=== PATIENT | female | born 1965 | race Caucasian/White ===

== ENCOUNTER 2018-05-11 05:51 | Day surgery (SDC) | payer OTHER ==
--- OUTSIDE RECORDS SUMMARY | 2018-05-11 05:57 | XMS REPORT | Summary of Care ---
:1965 Author Organization [facility] Spine [facility] Address [address] [place] [address] [address] [place] [address]- Encounter HQ Encntr_alilinda(FIN) [id number] Date(s): 11/10/17 - 11/11/17 [facility] Spine [address] [place], [place] [address] [phone] Vital Signs No data available for this section Problem List Condition Effective Dates Status Health Status Informant Aortic regurgitation(Confirmed) Active Asthma(Confirmed) Active CRPS (complex regional pain syndrome Active type I)(Confirmed) Tremor, essential(Confirmed) Active Heart murmur(Confirmed) Active Hyperlipidemia(Confirmed) Active Hypertension(Confirmed) Active Laryngopharyngeal reflux(Confirmed) Active Morbid obesity(Confirmed) Active PVC (premature ventricular Active contraction)(Confirmed) Allergies, Adverse Reactions, Alerts Substance Reaction Severity Status NKDA Active Medications No data available for this section Results No data available for this section Immunizations No data available for this section Procedures Procedure Date Related Diagnosis Body Site Status Appendectomy Completed section Completed section Completed section Completed Repair of ankle1 Completed Repair of knee joint2 Completed Repair of shoulder3 Completed SCS - Spinal cord stimulation4 Completed 1ankle surgery [id number] surgery [id number] shoulder surgeries [id number] cord stimulator implant 2009,2011,2017 Social History Social History Type Response Substance Abuse Use: None. Alcohol Past Smoking Status Never smoker; Ready to change: No; Concerns about tobacco use in household: No; Exposure to Tobacco Smoke None; Cigarette Smoking Last 365 Days No; Reg Smoking Cessation Counseling No entered on: 12/02/17 Assessment and Plan No data available for this section
--- OUTSIDE RECORDS SUMMARY | 2018-05-11 05:57 | XMS REPORT | Summary of Care ---
:1965 Author Organization [facility] Spine [facility] Address [address] [place] [address], [facility] [address] [place] [address]- Encounter HQ Encntr_alias(FIN) [id number] Date(s): 11/16/17 - 11/17/17 [facility] Spine [address] [place], [place] [address] [phone] Vital Signs No data available for this [...] - Spinal cord stimulation4 Completed 1ankle surgery [id number] surgery 20090102 shoulder surgeries [id number] cord stimulator implant 2009,2011,2017 Social History Social [...]
--- OUTSIDE RECORDS SUMMARY | 2018-05-11 05:57 | XMS REPORT | Continuity of Care Document ---
:1965 Author Organization Interface Problems Problem Status Onset Classification Date Comments Source Date Reported Aortic regurgitation Active Problem 03/31/2018 [facility] Asthma Active Problem 03/31/2018 [facility] CRPS (<span Active Problem 03/31/2018 [facility] ID="[id number]">[facility] nfirmed</span>) Tremor, essential Active Problem 03/31/2018 [facility] Heart murmur Active Problem 03/31/2018 [facility] Hyperlipidemia Active Problem 03/31/2018 [facility] Hypertension Active Problem 03/31/2018 [facility] Laryngopharyngeal Active Problem 03/31/2018 [facility] reflux Neuro Morbid obesity Active Problem 03/31/2018 [facility] PVC (<span Active Problem 03/31/2018 [facility] ID="[id number]">Co Neuro nfirmed</span>) Medications Medication Details Route Status Patient Ordering Order Source Instructions Provider Date Aspirin 81 MG 81 mg=1 Active [facility] Enteric Coated tab, PO, 018 [facility] Tablet Daily, 3 Refill(s) DULoxetine 60 mg 60 mg=1 Active [facility] oral delayed cap, PO, 018 Neuro release capsule Daily, # 30 cap, 0 Refill(s) Cyclobenzaprine 10 mg=1 Active [facility] hydrochloride 10 tab, PO, 018 Neuro MG Oral Tablet BID, 0 [Flexeril] Refill(s) Acetaminophen 325 1 tab, PO, Active [facility] MG / Hydrocodone Q8H, 0 018 Neuro Bitartrate 10 MG Refill(s) Oral Tablet [[place] 10/325] gabapentin 400 MG 400 mg=1 Active [facility] Oral Capsule cap, PO, 018 Neuro TID Allergies, Adverse Reactions, Alerts Substance Category Reaction Severity Reaction Status Date Comments Source type Reported NKDA Assertion Drug Active [facility] Immunizations Immunization Date Given Site Status Last Updated Comments Source Results Order Results Value Reference Date Interpretation Comments Source Name Range Vital Signs Vital Sign Value Date Comments Source Height 175.26 cm 12/23/2017 [facility] Weight 113.636 12/23/2017 [facility] BMI Calculated 37 12/23/2017 [facility] Systolic (mm Hg) 107 12/23/2017 [facility] Diastolic (mm Hg) 72 12/23/2017 [facility] Heart Rate 92 12/23/2017 [facility] Systolic (mm Hg) 132 12/02/2017 [facility] Diastolic (mm Hg) 85 12/02/2017 [facility] Heart Rate 83 12/02/2017 [facility] BMI Calculated 37 12/02/2017 [facility] Weight 113.636 12/02/2017 [facility] Height 175.26 cm 12/02/2017 [facility] Encounters Location Location Encounter Encounter Reason Attending ADM DC Status Source Details Type Number For Provider Date Date Visit [facility] Phone [id number] 11/10 11/12 [facility] Message Neuro [facility] Phone [id number] 11/16 11/18 [facility] Message Neuro [facility] Outpatient [id number] [facility] 12/02 Active [facility] Vinay Outpatient [id number] MARVIN 12/02 [facility] Outpatient [id number] Kartik 12/02 12/03 [facility] Outpatient [id number] [facility] 12/10 [facility] Vinay Outpatient [id number] [facility] 12/10 [facility] Ambulatory [id number] Kartik 12/10 12/10 [facility] Pre-Reg ma Neuro [facility] Outpatient [id number] Kartik 12/10 12/11 [facility] Phone [id number] 12/14 12/16 [facility] Message Neuro [facility] Outpatient [id number] [facility] 12/23 [facility] Outpatient [id number] Kartik 12/23 12/24 [facility] Procedures Procedure Code Date Perfomer Comments Source NJX INTERLAMINAR 12/10/2017 [facility] CRV/THR Neuro Appendectomy [id number] [facility] section [id number] [facility] Repair of [id number] ankle surgery [facility] ankle<sup>1</sup> 2003 Neuro Repair of knee [id number] knee surgery [facility] joint<sup>2</sup> 2008 Neuro Repair of [id number] 3 shoulder [facility] shoulder<sup>3</blunt surgeries 1997 Neuro p> SCS - Spinal cord [id number] spinal cord [facility] stimulation<sup>4< stimulator Neuro /sup> implant 2009,2011,2016
--- OUTSIDE RECORDS SUMMARY | 2018-05-11 05:57 | XMS REPORT | Summary of Care ---
:1965 Author Organization [facility] Spine [facility] Address [address] [place] [address] [address] [place] [address]- Encounter HQ Obi_bc(FIN) [id number] Date(s): 12/02/17 - 12/02/17 [facility] Spine [address] [place] [address] [phone] Discharge Disposition: Home or Self Care Attending Physician: Froilan Jane MD Referring Physician: Kartik Nix MD Vital Signs Most recent to oldest [Reference Range]: 1 Height 175.26 cm (12/02/17 9:38 AM) Blood Pressure [90-140/60-90 mmHg] 132/85 mmHg (12/02/17 9:38 AM) Peripheral Pulse Rate [60-100 bpm] 83 bpm (12/02/17 9:38 AM) Weight 113.636 kg (12/02/17 9:38 AM) Body Mass Index 37 m2 (12/02/17 9:38 AM) Problem List Condition Effective Dates Status Health Status Informant Aortic regurgitation(Confirmed) Active Asthma(Confirmed) Active CRPS (complex regional pain syndrome Active type I)(Confirmed) Tremor, essential(Confirmed) Active Heart murmur(Confirmed) Active Hyperlipidemia(Confirmed) Active Hypertension(Confirmed) Active Laryngopharyngeal reflux(Confirmed) Active Morbid obesity(Confirmed) Active PVC (premature ventricular Active contraction)(Confirmed) Allergies, Adverse Reactions, Alerts Substance Reaction Severity Status NKDA Active Medications aspirin 81 mg tablet, enteric coated 81 mg=1 tab, PO, Daily, 3 Refill(s) Start Date: 12/02/17 Status: OrderedDULoxetine 60 mg oral delayed release capsule 60 mg=1 cap, PO, Daily, # 30 cap, 0 Refill(s) Start Date: 12/02/17 Status: OrderedFlexeril 10 mg oral tablet 10 mg=1 tab, PO, BID, 0 Refill(s) Start Date: 12/02/17 Status: Orderedgabapentin 400 mg oral capsule 400 mg=1 cap, PO, TID Start Date: 12/02/17 Status: OrderedNorco 10/325 oral tablet 1 tab, PO, Q8H, 0 Refill(s) Start Date: 12/02/17 Status: Ordered Results No data available for this section Immunizations No data available for this section Procedures Procedure Date Related Diagnosis Body Site Status Appendectomy Completed section Completed section Completed section Completed Repair of ankle1 Completed Repair of knee joint2 Completed Repair of shoulder3 Completed SCS - Spinal cord stimulation4 Completed 1ankle surgery 99143hsly surgery 20090102 shoulder surgeries [id number] cord stimulator implant 2009,2011,2016 Social History Social History Type Response Substance Abuse Use: None. Alcohol Past Smoking Status Never smoker; Ready to change: No; Concerns about tobacco use in household: No; Exposure to Tobacco Smoke None; Cigarette Smoking Last 365 Days No; Reg Smoking Cessation Counseling No entered on: 12/02/17 Assessment and Plan No data available for this section
--- OUTSIDE RECORDS SUMMARY | 2018-05-11 05:57 | XMS REPORT | Summary of Care ---
:1965 Author Organization [facility] Spine [facility] Address [address] [place] [address], [facility] [address] [place] [address]- Encounter HQ Peytonntr_bc(FIN) [id number] Date(s): 12/10/17 - 12/10/17 [facility] Spine [address] [place], [place] [address] [phone] Attending Physician: Christy Jolley MD Referring Physician: Kartik Nix MD Vital Signs No data available for this [...] - Spinal cord stimulation4 Completed 1ankle surgery [id number] surgery 20090102 shoulder surgeries [id number] cord stimulator implant 2009,2011,2016 Social History Social [...]
--- OUTSIDE RECORDS SUMMARY | 2018-05-11 05:57 | XMS REPORT | Summary of Care ---
:1965 Author Organization [facility] Spine [facility] Address [address] [place] [address], [facility] [address] [place] [address]- Encounter HQ Encntr_alias(FIN) [id number] Date(s): 12/14/17 - 12/15/17 [facility] Spine [address] [place], [place] [address] [phone] Vital Signs No data available for this [...] - Spinal cord stimulation4 Completed 1ankle surgery [id number] surgery 20090102 shoulder surgeries [id number] cord stimulator implant 2009,2011,2017 Social History Social [...]
--- OUTSIDE RECORDS SUMMARY | 2018-05-11 05:57 | XMS REPORT | Summary of Care ---
:1965 Author Organization [facility] Spine [facility] Address [address] [place] [address] [address] [place] [address]- Encounter HQ Obi_bc(FIN) [id number] Date(s): 12/23/17 - 12/23/17 [facility] Spine [address] [place] [address] [phone] Discharge Disposition: Home or Self Care Attending Physician: Froilan Jane MD Referring Physician: Kartik Nix MD Vital Signs Most recent to oldest [Reference Range]: 1 Height 175.26 cm (12/23/17 9:22 AM) Blood Pressure [90-140/60-90 mmHg] 107/72 mmHg (12/23/17 9:22 AM) Peripheral Pulse Rate [60-100 bpm] 92 bpm (12/23/17 9:22 AM) Weight 113.636 kg (12/23/17 9:22 AM) Body Mass Index 37 m2 (12/23/17 9:22 AM) Problem List Condition Effective Dates Status Health Status Informant Aortic regurgitation(Confirmed) Active Asthma(Confirmed) Active CRPS (complex regional pain syndrome Active type I)(Confirmed) Tremor, essential(Confirmed) Active Heart murmur(Confirmed) Active Hyperlipidemia(Confirmed) Active Hypertension(Confirmed) Active Laryngopharyngeal reflux(Confirmed) Active Morbid obesity(Confirmed) Active PVC (premature ventricular Active contraction)(Confirmed) Allergies, Adverse Reactions, Alerts Substance Reaction Severity Status NKDA Active Medications No Known Medications Results No data available for this section Immunizations No data available for this section Procedures Procedure Date Related Diagnosis Body Site Status Appendectomy Completed section Completed section Completed section Completed Repair of ankle1 Completed Repair of knee joint2 Completed Repair of shoulder3 Completed SCS - Spinal cord stimulation4 Completed 1ankle surgery [id number] surgery 20090102 shoulder surgeries [id number] cord stimulator implant 2009,2011,2017 Social History Social [...]
--- OUTSIDE RECORDS SUMMARY | 2018-05-11 05:57 | XMS REPORT | Clinical Summary ---
:1965 Author Organization [employer] Address [address] [place] [address] Care Team Providers Name Role Phone Selvin Monson Primary Care Provider Allergies No Known Allergies Current Medications Prescription Sig. Disp. Refills Start Date End Date Status pantoprazole Take 40 mg by Active (PROTONIX) 40 MG EC mouth daily. tablet cyclobenzaprine Take 10 mg by Active (FLEXERIL) 10 mg mouth 2 (two) tablet times a day. HYDROcodone-acetamin Take 1 tablet Active ophen (NORCO) 10-325 by mouth every mg per tablet 6 (six) hours as needed for moderate pain. DULoxetine Take 60 mg by Active (CYMBALTA) 60 MG mouth daily. capsule FAMOTIDINE/CA Take 1 tablet Active CARB/MAG HYDROX by mouth (PEPCID COMPLETE daily. ORAL) atorvastatin Take 40 mg by Active (LIPITOR) 40 MG mouth every tablet evening. aspirin (ECOTRIN) 81 Take 81 mg by Active MG enteric coated mouth daily. tablet metoprolol succinate Take 1 tablet 90 tablet 3 11/09/2017 Active XL (TOPROL-XL) 50 mg (50 mg total) 9 24 hr tablet by mouth daily. valsartan-hydrochlor Take 1 tablet 90 tablet 3 11/09/2017 Active othiazide by mouth 9 (DIOVAN-HCT) 160-25 daily. mg per tablet gabapentin Take 1 capsule 90 capsule 11 02/10/2018 Active (NEURONTIN) 400 mg (400 mg total) 9 capsule by mouth 3 (three) times a day. BREO ELLIPTA 100-25 03/11/2018 Active mcg/dose blister with device powder for inhalation miscellaneous c pap machine Active medical supply misc at night for breathing atorvastatin TK 1 T PO QPM 0 09/28/2017 Discontinued (LIPITOR) 40 MG 7 tablet cyclobenzaprine TK 1 T PO BID 0 08/19/2017 Discontinued (FLEXERIL) 10 mg 7 tablet DULoxetine TK ONE C PO 5 09/19/2017 Discontinued (CYMBALTA) 60 MG QD 7 capsule gabapentin TK ONE C PO 0 08/19/2017 Discontinued (NEURONTIN) 400 mg TID 7 capsule HYDROcodone-acetamin TK 1 T PO BID 0 09/03/2017 Discontinued ophen (NORCO) 10-325 FOR PAIN 7 mg per tablet ondansetron ODT DISSOLVE 1 T 0 09/28/2017 Discontinued (ZOFRAN-ODT) 4 MG UNT BID PRN N 7 disintegrating tablet valsartan (DIOVAN) TK 1 T PO QAM 1 08/31/2017 Discontinued 160 MG tablet 7 pantoprazole TK 1 T PO QD 1 09/21/2017 Discontinued (PROTONIX) 40 MG EC 7 tablet valsartan (DIOVAN) Take 160 mg by Discontinued 160 MG tablet mouth daily. 8 gabapentin Take 400 mg by Discontinued (NEURONTIN) 400 mg mouth 3 8 capsule (three) times a day. ondansetron ODT Take 4 mg by Discontinued (ZOFRAN-ODT) 4 MG mouth 2 (two) 8 disintegrating times a day as tablet needed for nausea or vomiting. cyclobenzaprine 10/19/2017 Discontinued (FLEXERIL) 5 mg 8 tablet Active Problems Problem Noted Date Chest pain 04/20/2018 Aortic valve disorder 04/05/2018 Essential hypertension 10/11/2017 Angina pectoris 10/11/2017 SOB (shortness of breath) 10/05/2017 Abnormal EKG 10/05/2017 Overview: Added automatically from request for surgery [id number] Encounters Date Type Specialty Care Team Description 04/16/2018 Office Visit Cardiology Ángela Manzo Chest pain, unspecified type (Primary Dx); MD Lex Aortic valve disorder 04/16/2018 Transcribe Orders Procedural Ángela Manzo Abnormal Cardiology MD Lex cardiovascular function study (Primary Dx) 04/16/2018 Orders Only Cardiology Vida Banuelos MA 04/05/2018 Office Visit Cardiology Ángela Manzo Essential hypertension ( Primary Dx); MD Lex Aortic valve disorder 02/10/2018 Orders Only Cardiology Pilo iL MA 11/09/2017 Office Visit Cardiology Ángela Manzo Chest pain, unspecified type (Primary Dx); MD Lex SOB (shortness of breath); Essential hypertension 10/14/2017 Hospital Encounter Procedural Ángela Manzo Abnormal EKG Cardiology MD Lex 10/14/2017 Procedure Pass Procedural Cardiology 10/14/2017 Surgery Procedural Ángela Manzo Cv selective coronary Cardiology MD Lex angiography [53373 (CPT)] 10/05/2017 Office Visit Cardiology Ángela Manzo Angina pectoris (Primary Dx ); MD Lex Essential hypertension; Abnormal EKG after 05/10/2017 Family History Medical History Relation Name Comments Hypertension Father pacemaker Heart failure Maternal Grandmother Heart attack Mother Hypertension Mother Relation Name Status Comments Father Maternal Grandmother Mother Social History Tobacco Use Types Packs/Day Years Used Date Never Smoker Smokeless Tobacco: Never Used Alcohol Use Drinks/Week oz/Week Comments No Sex Assigned at Date Recorded Not on file Last Filed Vital Signs Vital Sign Reading Time Taken Blood Pressure 137/78 04/29/2018 8:56 AM CDT Pulse 71 04/29/2018 8:56 AM CDT Temperature 36 C (96.8 F) 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 Respiratory Rate 16 04/05/2018 1:20 PM CDT Oxygen Saturation 95% 04/29/2018 8:56 AM CDT Inhaled Oxygen Concentration - - Weight 119 kg (262 lb) 04/29/2018 8:56 AM CDT Height 175.3 cm (5' 9") 04/29/2018 8:56 AM CDT Body Mass Index 38.69 04/29/2018 8:56 AM CDT Plan of Treatment Health Maintenance Due Date Last Done Comments CERVICAL CANCER SCREENING 1984 BREAST CANCER SCREENING 2013 COLON CANCER SCREENING 2013 SHINGRIX VACCINE (#1) 2013 INFLUENZA VACCINE 06/02/2018 Procedures Procedure Name Priority Date/Time Associated Diagnosis Comments NM MYOCARDIAL Routine 04/29/2018 3:42 Chest pain, Results for this PERFUSION STRESS ONLY PM CDT unspecified type procedure are in Aortic valve the results disorder section. CV STRESS TEST NUCLEAR Routine 04/29/2018 3:42 Chest pain, Results for this CARDIO PM CDT unspecified type procedure are in Aortic valve the results disorder section. ECHOCARDIOGRAM 2D Routine 04/07/2018 9:48 Aortic valve Results for this COMPLETE W MMODE AM CDT disorder procedure are in SPECTRAL COLOR DOPPLER the results (09808) section. ECG 12-LEAD Routine 04/05/2018 1:20 Essential Results for this PM CDT hypertension procedure are in the results section. CV SELECTIVE CORONARY Routine 10/14/2017 9:11 Abnormal EKG Results for this ANGIOGRAPHY AM MEDICAL PHYSICS TEACHER procedure are in the results section. ESTIMATED GFR STAT 10/14/2017 7:15 Results for this AM MEDICAL PHYSICS TEACHER procedure are in the results section. HC COMPLETE BLD COUNT STAT 10/14/2017 7:15 Results for this W/AUTO DIFF AM MEDICAL PHYSICS TEACHER procedure are in the results section. BASIC METABOLIC PANEL STAT 10/14/2017 7:15 Results for this AM MEDICAL PHYSICS TEACHER procedure are in the results section. ECG PRE/POST OP Routine 10/14/2017 7:13 Results for this AM MEDICAL PHYSICS TEACHER procedure are in the results section. after 05/10/2017 Results Cv stress test (04/29/2018 3:42 PM) Resting HR 67 [facility] Resting BP 137 [facility] Peak MET Achieved 1.0 H MUSE Protocol Name Lexiscan H MUSE Time in Exercise Phase 00:00:12 [facility] Max Systolic BP 144 [facility] Max Diastolic BP 80 [facility] Max Heart Rate 92 [facility] Max Predicted Heart Rate 165 [facility] Target HR Formula (220 - Age)*85% [facility] Test Indication chest pain [facility] Arrhy During Ex [facility] ECG Interp Before EX [facility] ECG Interp During Ex [facility] Ex Summary Comment [facility] Overall HR Response to [facility] Exercise Overall BP Response To [facility] Exercise Reason for Termination Regadenoson protocol/Shortness [facility] of breath Stress Test Impression Waveform interpreted in report [facility] associated with image study. No interpretation is provided as part of this Stress ECG report.--Electronically Signed By Lucrecia MEJIA, Tristan Lee ([id number]), brands editor Sharlene Patel ([id number]) on 05/03/2018 3:12:04 PM Performing Organization Address City/State/Zipcode Phone Number [facility] [address] [place] [address] Nm myocardial perfusion (04/29/2018 3:42 PM) Narrative Performed At [facility] Nuclear [facility]iology [facility] [address], [address] [place] [address] Fax: Myocardial Perfusion Imaging Report Pat.Name:Moshe CLEARY.ID:[id number] .Date: 04/29/2018 Refer.MD:ÁNGELA MANZO MD Exam Time: 10:15:00 AM Study Type:Myocardial Perfusion Imaging Height:69inWeight: 262lb BSA: 2.32 m2 DOBAge:1965,53Y Sex: FEMALE Nuclear Tech:BELÉN BrandMT, [facility](CT) Nuclear Event ID:[id number] Order ID:[id number] Reason for Study:Abnormal EKG*, Chest pain, unspecified*, Aortic valve disorders Procedures:Stress only Race: Clinical Symptoms:Regadenoson SUMMARY: BASELINE ECGNormal Sinus Rhythm, LVH by voltage STRESS TEST RESULTS Maximal Predicted HR165 beats/minute 85% Maximal Predicted HR 140 beats/minute Stress Test Duration1 minutes 00 seconds Resting Heart Rate67 beats/minute Maximal Heart Rate92 beats/minute Resting Blood Nlsvkdim985/78 mmHg Maximal Blood Yaiuyyuk117/80 mmHg % Maximal Heart Rate Achieved 55% Symptoms During TestShortness of breath Reason for Stopping TestAs per regadenoson protocol Maximal ST-segment shiftNone Stress-Induced Arrhythmias None Ischemic electrocardiographic changes (ST-segment depression) did not occur at peak regadenoson stress. STRESS TEST INTERPRETATION Normal maximal regadenoson stress test. SCINTIGRAPHIC RESULTS Perfusion Defect Size (% LV) 0 % Total 0 % Ischemia 0 % Scar Left Ventricular Perfusion Results There is normal tracer distribution throughout the myocardium during stress. Gated SPECT Results The post-stress left ventricular ejection fraction is 78 % with normal regional wall motion and left ventricular thickening.Left ventricular end-diastolic volume is 112 ml; end-systolic volume is25 ml. The left ventricle is of normal size at stress.The right ventricle is of normal size with normal wall motion. Conclusion Normal regadenoson Tc-99m tetrofosmin myocardial perfusion study. The left ventricular ejection fraction is normal. Comments Patients with a normal stress myocardial perfusion study have a low (< 1%) annual risk of cardiac or nonfatal myocardial infarction. Study Quality/Artifacts The study quality is good. The mild reduction in anterior wall counts is probably due to breast attenuation artifact rather than coronary artery disease. Comparison to Previous Study None available. Signed 04/29/2018 06:17 PM Tristan Singer MD Procedure Note Interface, Radiology Results In - 04/29/2018 6:17 PM CDT Nuclear [facility] [address] [place] [address], [address] [place] [address] Myocardial Perfusion Imaging Report Pat.Name: VARSHA CLEARY Pat.ID: [id number] .Date: 04/29/2018 Refer.MD: ÁNGELA MANZO MD Exam Time: 10:15:00 AM Study Type:Myocardial Perfusion Imaging Height: 69in Weight: 262lb BSA: 2.32 m2 Age: 6 1965,53Y Sex: FEMALE Nuclear Tech:LARISSA Brand, [facility](CT) Nuclear Event ID:[id number] Order ID: [id number] Reason for Study:Abnormal EKG*, Chest pain, unspecified*, Aortic valve disorders Procedures:Stress only Race: Clinical Symptoms:Regadenoson SUMMARY: BASELINE ECG Normal Sinus Rhythm, LVH by voltage STRESS TEST RESULTS Maximal Predicted HR 165 beats/minute 85% Maximal Predicted HR 140 beats/minute Stress Test Duration 1 minutes 00 seconds Resting Heart Rate 67 beats/minute Maximal Heart Rate 92 beats/minute Resting Blood Pressure 137/78 mmHg Maximal Blood Pressure 144/80 mmHg % Maximal Heart Rate Achieved 55% Symptoms During Test Shortness of breath Reason for Stopping Test As per regadenoson protocol Maximal ST-segment shift None Stress-Induced Arrhythmias None Ischemic electrocardiographic changes (ST-segment depression) did not occur at peak regadenoson stress. STRESS TEST INTERPRETATION Normal maximal regadenoson stress test. SCINTIGRAPHIC RESULTS Perfusion Defect Size (% LV) 0 % Total 0 % Ischemia 0 % Scar Left Ventricular Perfusion Results There is normal tracer distribution throughout the myocardium during stress. Gated SPECT Results The post-stress left ventricular ejection fraction is 78 % with normal regional wall motion and left ventricular thickening. Left ventricular end-diastolic volume is 112 ml; end-systolic volume is 25 ml. The left ventricle is of normal size at stress. The right ventricle is of normal size with normal wall motion. Conclusion Normal regadenoson Tc-99m tetrofosmin myocardial perfusion study. The left ventricular ejection fraction is normal. Comments Patients with a normal stress myocardial perfusion study have a low (< 1%) annual risk of cardiac or nonfatal myocardial infarction. Study Quality/Artifacts The study quality is good. The mild reduction in anterior wall counts is probably due to breast attenuation artifact rather than coronary artery disease. Comparison to Previous Study None available. Signed 04/29/2018 06:17 PM Tristan Singer MD Performing Organization Address [facility]/State/Zipcode Phone Number [facility] [address] [place] [address] Echocardiogram complete w contrast and 3D if needed (04/07/2018 9:48 AM) Narrative Performed At [facility] Echocardiography Report Pat.Name:Moshe CLEARY.ID:[id number] .Date: 04/07/2018Refnorris.MD:ÁNGELA MANZO MD Exam Time: 8:57:00 AMStudy Type:Routine Echo Height:69inWeight: 262lb BSA: 2.32 m2 DOBAge:1965,52Y Sex: FEMALEBP:109/63 HR:76 bpmSonogrphr: Edmund Bojorquez RDCS Pat. Stat.:OutpatientRoom:[facility] Study Status:Final Echo Event ID:[id number] Order ID:[id number] Reason for Study:Aortic Valve Disorder History / Clinical:Hyperlipidemia, Hypertension, Valvular Heart Disease; Aortic Insufficiency, TIA Procedures:2D Echo, Colorflow Doppler Race:C SUMMARY: Focal calcification of AV leaflets. Mild to moderate aortic regurgitation. FINDINGS: LV: LV size is normal. LV EF is normal. Overall wall motion is normal.Estimated EF is 60-64%. RV: RV size is normal. RV systolic function is normal. RV wall motionis normal. LA: LA size is normal. RA: RA size is normal. AO: Aortic root diameter is normal. YE: No pericardial effusion. AV: Focal calcification of AV leaflets. Mild to moderate aortic regurgitation. MV: No structural MV abnormalities noted. A trace of mitral regurgitation. PV: No structural PV abnormalities noted. TV: No structural TV abnormalities noted. Arora: LV relaxation is impaired. LV filling pressure is elevated. Other:Insufficient TR jet to estimate PA systolic pressure. MEASUREMENTS: 2D Parasternal Long Dawson LVOT 1.8 cmLA Ds3.8 cm LVIDd4.7 cmIndex2 cm/m Ao Rtd 2.8 cm Index1.2 cm/m LVIDs2.6 cmLV Dfyv666 g(87-129) LV%fs 44.8 % LVM Index 58.2 g/m2 IVSd 0.8 cmRWT0.4 LVPWd0.9 cm LA Sng Plane LA Area 22.5 cm2(8.8-23.4) LA Vol67.7 ml Index29.2 ml/m LA LngAx 6.3 cm DOPPLER AV For Flow/JAE AV pkVel 216.3 cm/s (100-170) AV AC/ET 0.4 AV mnVel 145 cm/Elena TVI44.2 cm AV pkPG 18.7 mmHgAVpkAcRt 2622.6 cm/s2 AV Mean G 10 mmHgAV ZxOb428.1 cm/s2 AV AC124 msec (83-118) AV Area1.9 cm2(3-5) AV ET305 msec LVOT For Flow LVOT Area2.5 cm2 LVOT SV 82.5 ml KSVAqtDet936.4 cm/sHR75.8 bpm VNQIhmNP65 mmHgLVOT CO6.3 l/min LVOTmnPG 5.8 mmHgLVOT CI2.7 l/m/m2 LVOT TVI32.4 cm RVOT Stroke Vol ann2.5 cmCO 5.8 l/min TVI 14.9 cmCI 2.5 l/m/m2 Tm 295 rfuoKP96 bpm SV72.9 ml Signed 04/08/2018 10:32 AM Jenny Vernon M.D. Procedure Note Interface, Radiology Results In - 04/08/2018 10:33 AM CDT [facility] Echocardiography Report Pat.Name: VARSHA CLEARY Pat.ID: [id number] .Date: 04/07/2018 Refer.MD: ÁNGELA MANZO MD Exam Time: 8:57:00 AM Study Type:Routine Echo Height: 69in Weight: 262lb BSA: 2.32 m2 Age: 6 1965,52Y Sex: FEMALE BP: 109/63 HR: 76 bpm Sonogrphr: Edmund Bojorquez RDCS Pat. Stat.:Outpatient Room: [facility] Study Status:Final Echo Event ID:[id number] Order ID: [id number] Reason for Study:Aortic Valve Disorder History / Clinical:Hyperlipidemia, Hypertension, Valvular Heart Disease; Aortic Insufficiency, TIA Procedures:2D Echo, Colorflow Doppler Race: C SUMMARY: Focal calcification of AV leaflets. Mild to moderate aortic regurgitation. FINDINGS: LV: LV size is normal. LV EF is normal. Overall wall motion is normal. Estimated EF is 60-64%. RV: RV size is normal. RV systolic function is normal. RV wall motion is normal. LA: LA size is normal. RA: RA size is normal. AO: Aortic root diameter is normal. YE: No pericardial effusion. AV: Focal calcification of AV leaflets. Mild to moderate aortic regurgitation. MV: No structural MV abnormalities noted. A trace of mitral regurgitation. PV: No structural PV abnormalities noted. TV: No structural TV abnormalities noted. Arora: LV relaxation is impaired. LV filling pressure is elevated. Other: Insufficient TR jet to estimate PA systolic pressure. MEASUREMENTS: 2D Parasternal Long [place] LVOT 1.8 cm LA Ds 3.8 cm LVIDd 4.7 cm Index 2 cm/m Ao Rtd 2.8 cm Index 1.2 cm/m LVIDs 2.6 cm LV Mass 135 g (87-129) LV%fs 44.8 % LVM Index 58.2 g/m2 IVSd 0.8 cm RWT 0.4 LVPWd 0.9 cm LA Sng Plane LA Area 22.5 cm2 (8.8-23.4) LA Vol 67.7 ml Index 29.2 ml/m LA LngAx 6.3 cm DOPPLER AV For Flow/JAE AV pkVel 216.3 cm/s (100-170) AV AC/ET 0.4 AV mnVel 145 cm/s AV TVI 44.2 cm AV pkPG 18.7 mmHg AVpkAcRt 2622.6 cm/s2 AV Mean G 10 mmHg AV DeRt 710.1 cm/s2 AV AC 124 msec (83-118) AV Area 1.9 cm2 (3-5) AV ET 305 msec LVOT For Flow LVOT Area 2.5 cm2 LVOT SV 82.5 ml LVOTpkVel 158.4 cm/s HR 75.8 bpm LVOTpkPG 10 mmHg LVOT CO 6.3 l/min LVOTmnPG 5.8 mmHg LVOT CI 2.7 l/m/m2 LVOT TVI 32.4 cm RVOT Stroke Vol bassam 2.5 cm CO 5.8 l/min TVI 14.9 cm CI 2.5 l/m/m2 Tm 295 msec HR 79 bpm SV 72.9 ml Signed 04/08/2018 10:32 AM Jenny Vernon M.D. Performing Organization Address [facility] Phone Number [facility] [address] [place] [address] ECG 12 lead (04/05/2018 1:20 PM) Ventricular rate 74 [facility] Atrial rate 74 [facility] [place] interval 162 [facility] QRSD interval 116 [facility] QT interval 414 [facility] QTC interval 459 [facility] P axis 1 52 [facility] QRS axis 1 -34 [facility] T wave axis 43 [facility] EKG impression Normal sinus rhythm-Left axis deviation Left [facility] anterior fascicular block-Left ventricular hypertrophy with QRS widening- Performing Organization Address [facility] CorporationBitfone Corporationtx Phone Number [facility] [address] [place] [address] Cv cytology laboratory manager procedure (10/14/2017 9:11 AM) Narrative Performed At No coronary atherosclerosis; LAD and circumflex come off of separate CUPID ostia from the left sinus of valsalva Performing Organization Address [facility]/[employer] Phone Number [facility] [address] [place] [address] Estimated GFR (10/14/2017 7:15 AM) GFR Non Af Amer 58 (A) mL/min/1.73 m2 [facility] DEPARTMENT OF PATHOLOGY AND GENOMIC MEDICINE GFR Af Amer 70 mL/min/1.73 m2 [facility] DEPARTMENT OF Comment: PATHOLOGY AND GENOMIC Chronic kidney disease: <60 mL/min/1.73m2 MEDICINE Kidney failure: <15 mL/min/1.73m2 The estimated GFR is calculated from the IDMS-traceable Modification of Diet in Renal Disease Equation. The accuracy of the calculation is poor when the creatinine is normal. Calculated values >90 mL/min/1.73m2 are not reported. This equation has not been validated in children (<18 years), women, the elderly (>70 years), or ethnic groups other than Caucasians and Americans. Specimen Plasma specimen Performing Organization Address City/State/Zipcode Phone Number [facility] DEPARTMENT OF PATHOLOGY AND [address] [place] [address] [employer] [facility] CBC with platelet and differential (10/14/2017 7:15 AM) WBC 6.83 4.50 - 11.00 k/uL [facility] DEPARTMENT OF PATHOLOGY AND GENOMIC MEDICINE RBC 4.82 4.20 - 5.50 m/uL [facility] DEPARTMENT OF PATHOLOGY AND GENOMIC MEDICINE HGB 12.5 12.0 - 16.0 g/dL [facility] DEPARTMENT OF PATHOLOGY AND GENOMIC MEDICINE HCT 39.2 37.0 - 47.0 % [facility] DEPARTMENT OF PATHOLOGY AND GENOMIC MEDICINE MCV 81.3 (L) 82.0 - 100.0 fL [facility] DEPARTMENT OF PATHOLOGY AND GENOMIC MEDICINE MCH 25.9 (L) 27.0 - 34.0 pg [facility] DEPARTMENT OF PATHOLOGY AND GENOMIC MEDICINE MCHC 31.9 31.0 - 37.0 g/dL [facility] DEPARTMENT OF PATHOLOGY AND GENOMIC MEDICINE RDW - SD 40.6 37.0 - 55.0 fL [facility] DEPARTMENT OF PATHOLOGY AND GENOMIC MEDICINE MPV 8.9 8.8 - 13.2 fL [facility] DEPARTMENT OF PATHOLOGY AND GENOMIC MEDICINE Platelet count 297 150 - 400 k/uL [facility] DEPARTMENT OF PATHOLOGY AND GENOMIC MEDICINE Nucleated RBC 0.00 /100 WBC [facility] DEPARTMENT OF PATHOLOGY AND GENOMIC MEDICINE Neutrophils 58.8 39.0 - 69.0 % [facility] DEPARTMENT OF PATHOLOGY AND GENOMIC MEDICINE Lymphocytes 27.2 25.0 - 45.0 % [facility] DEPARTMENT OF PATHOLOGY AND GENOMIC MEDICINE Monocytes 6.6 0.0 - 10.0 % [facility] DEPARTMENT OF PATHOLOGY AND GENOMIC MEDICINE Eosinophils 6.0 (H) 0.0 - 5.0 % [facility] DEPARTMENT OF PATHOLOGY AND GENOMIC MEDICINE Basophils 0.7 0.0 - 1.0 % [facility] DEPARTMENT OF PATHOLOGY AND GENOMIC MEDICINE Immature granulocytes 0.7Comment: 0.0 - 1.0 % [facility] DEPARTMENT OF "Immature PATHOLOGY AND GENOMIC granulocytes" MEDICINE (promyelocytes, myelocytes, metamyelocytes) Specimen Blood Performing Organization Address City/[facility] Corporationcode Phone Number [facility] DEPARTMENT OF PATHOLOGY AND [address] [place] [address] [facility] MEDICINE Basic metabolic panel (10/14/2017 7:15 AM) Sodium 139 135 - 148 mEq/L [facility] DEPARTMENT OF PATHOLOGY AND GENOMIC MEDICINE Potassium 4.0 3.5 - 5.0 mEq/L [facility] DEPARTMENT OF PATHOLOGY AND GENOMIC MEDICINE Chloride 101 98 - 112 mEq/L [facility] DEPARTMENT OF PATHOLOGY AND GENOMIC MEDICINE CO2 23 (L) 24 - 31 mEq/L [facility] DEPARTMENT OF PATHOLOGY AND GENOMIC MEDICINE Anion gap 15 7 - 15 mEq/L [facility] DEPARTMENT OF PATHOLOGY Comment: AND GENOMIC MEDICINE Starting from January , anion gap calculation no longer incorporates potassium. Please note the change. BUN 20 6 - 20 mg/dL [facility] DEPARTMENT OF PATHOLOGY AND GENOMIC MEDICINE Creatinine 1.0 (H) 0.5 - 0.9 mg/dL [facility] DEPARTMENT OF PATHOLOGY AND GENOMIC MEDICINE Glucose 128 (H) 65 - 99 mg/dL [facility] DEPARTMENT OF PATHOLOGY AND GENOMIC MEDICINE Calcium 9.0 8.3 - 10.2 mg/dL [facility] DEPARTMENT OF PATHOLOGY AND GENOMIC MEDICINE Specimen Plasma specimen Performing Organization Address City/[facility] Corporationcotx Phone Number [facility] DEPARTMENT OF PATHOLOGY AND [address] [place] [address] [facility] ECG Pre/Post Op (10/14/2017 7:13 AM) Ventricular rate 84 [facility] Atrial rate 84 [facility] [place] interval 150 [facility] QRSD interval 106 [facility] QT interval 384 [facility] QTC interval 453 [facility] P axis 1 25 [facility] QRS axis 1 -43 [facility] T wave axis 59 [facility] EKG impression Normal sinus rhythm-Left axis deviation Left anterior fascicular block-Moderate voltage criteria for LVH, may be normal variant- Abnormal ECG-In automated comparison with ECG of 05-OCT-2017 13:30,-Minimal criteria for Septal infarct are no longer [facility] present- :37 PM Performing Organization Address City/State/Zipcode Phone Number [facility] [address] [place] [address] after 05/10/2017 Insurance Payer Benefit Plan / Group Subscriber ID Type Phone Address AETNA AETNA HMO,POS,EPO, MC/EC xxxxxxxxxx HMO [phone] [address]
--- OUTSIDE RECORDS SUMMARY | 2018-05-11 05:57 | XMS REPORT | Summary of Care ---
:1965 Author Organization [facility] Address [address] [place] [address], [facility] [address] [place] [address]- Encounter HQ Obi_bc(FIN) [id number] Date(s): 12/10/17 - 12/10/17 [facility] [address], [facility] [address] [place], [place] [address] [phone] Discharge Disposition: Home or Self Care Attending [...] Procedure Date Related Diagnosis Body Site Status NJX INTERLAMINAR CRV/THR 12/10/17 Completed Appendectomy Completed section Completed section Completed section Completed Repair of ankle1 Completed Repair of knee joint2 Completed Repair of shoulder3 Completed SCS - Spinal cord stimulation4 Completed 1ankle surgery [id number] surgery [id number] shoulder surgeries [id number] cord stimulator implant 2009,2011,2016 Social History Social [...]
[2018-05-11] MEDS ORDERED: Ringers Lactate 1,000 ML IV ONE (06:11)
[2018-05-11] MEDS ORDERED: LIDOCAINE 1% W/EPI 1:100,000 MDV 50 ML VIAL ONE (06:46)
[2018-05-11] MEDS ORDERED: NA CHLORIDE 0.9% 1,000 ML ONE (06:46)
[2018-05-11] MEDS ORDERED: PROPOFOL 200 MG/20 ML VIAL IV ONE (06:50)
[2018-05-11] MEDS ORDERED: MIDAZOLAM HCL 2 MG/2 ML INJ ONE (06:50)
[2018-05-11] MEDS ORDERED: LIDOCAINE 2% MPF 5 ML VIAL ONE (06:50)
[2018-05-11] MEDS ORDERED: FENTANYL CITR 100 MCG/2 ML ONE (06:51)
[2018-05-11] MEDS ORDERED: KETOROLAC 30 MG/ML INJ ONE (07:25)
[2018-05-11 08:25] VITALS: BP 127/78; TEMP 97.2; O2SAT 92
--- NOTE | 2018-05-11 14:58 | OP ---
Date of Procedure: 05/11/2018 Surgeon: Dedra Rosado MD Preoperative Diagnosis: Postmenopausal bleeding. Postoperative Diagnoses: 1.Postmenopausal bleeding. 2.A large endometrial polyp. Procedures Performed: Operative hysteroscopy, polypectomy, and dilation and curettage. Anesthesia: MAC plus paracervical block. Specimens: Endometrial curettings and polyp. Complications: None. Drains: None. Condition: Stable. Findings: A 4 cm endometrial polyp arising from the anterior wall of the uterus was found. The endo metrium appeared to be smooth and atrophic. Description Of Procedure: After informed consent was verified, patient was brought to the OR. She i s a 53-year-old female with postmenopausal bleeding and transvaginal ultrasound showing thickened end ometrial lining, so sampling and possible polypectomy, if polyp was found, was discussed and she was consented appropriately and brought here. After informed consent was re-verified, she was taken back to the OR, placed in a supine fashion on t he operating table. After MAC was given, she was placed in a dorsal lithotomy position using Marshall s tirrups. Pelvic exam performed. Uterus anteflexed. No adnexal masses. Speculum was used to expose the cervix. Anterior lip injected with 1% lidocaine mixed with 1:100,000 epinephrine 10 cc. Then, at 4 and 8 o'clock positions, 6 cc each was injected, 8 cc at 12 o'clock, and 6 cc each on the 4 and 8 o'clock positions of the cervicovaginal junction for a paracervical block. Prep x3 with Betadine w as done. Anterior lip grasped with 2 Allis clamps. A SlimLine hysteroscope was introduced with a 30 -degree lens and normal saline for distention medium. After entering, the cervical canal had to be d ilated to 14-[place] for me to introduce a SlimLine scope. Once this was done, the endometrial polyp was visualized, tried to take that polyp down with the tip of the scope, but this was not possible wi th scraping, so the scope was removed, an operative sheath was placed. Scissors were inserted throug h here and uterine cavity was entered under direct visualization and good cavity distention. Cold sc issors were used to take down the entire attachment and the polyp was completely detached. Then the scope was removed, and polyp grasped with Richy forceps and retrieved completely. The patient cleo rated the procedure well. Endometrial curettings were performed with a #2 curette, and curettings we re obtained. However, these were handed off for permanent pathology as well as the polyp. Then inst ruments were removed. Instrument, needle, and sponge counts were done and were correct at the end of the case. The patient was recovered from anesthesia in the OR and taken to the same-day surgery are a. She will follow up with me in 1 week. RADHA Voice ID: [id number] Report ID: [id number]
== END 2018-05-11 08:20 | disposition home or self-care (01) ==
LOC: OR 05:51
PROVIDERS: ATTEND Obstetrics & Gynecology
PROC: 0UDB7ZX Extraction of Endometrium, Via Natural or Artificial Opening, Diagnostic (ICD-10-PCS; 2018-05-11)
PROC: 0UJD8ZZ Inspection of Uterus and Cervix, Via Natural or Artificial Opening Endoscopic (ICD-10-PCS; 2018-05-11)
PROC: 0UB97ZX Excision of Uterus, Via Natural or Artificial Opening, Diagnostic (ICD-10-PCS; principal; 2018-05-11 07:00)
DX: N85.02 Endometrial intraepithelial neoplasia [EIN] (principal); N95.0 Postmenopausal bleeding; I10 Essential (primary) hypertension; E78.00 Pure hypercholesterolemia, unspecified; I35.9 Nonrheumatic aortic valve disorder, unspecified; G47.30 Sleep apnea, unspecified
CPT/HCPCS: 88305; J2250; J3010; J7030

== ENCOUNTER 2018-06-18 19:38 | Observation (INO) | payer OTHER ==
--- OUTSIDE RECORDS SUMMARY | 2018-06-18 19:41 | XMS REPORT | Continuity of Care Document ---
:1965 Author Organization Interface Problems Problem Status Onset Classification Date Comments Source Date Reported Aortic regurgitation Active Problem 03/31/2018 [facility] Asthma Active Problem 03/31/2018 [facility] CRPS (<span Active Problem 03/31/2018 [facility] ID="[id number]">[facility] nfirmed</span>) Tremor, essential Active Problem 03/31/2018 [facility] Heart murmur Active Problem 03/31/2018 [facility] Hyperlipidemia Active Problem 03/31/2018 [facility] Hypertension Active Problem 03/31/2018 [facility] Laryngopharyngeal Active Problem 03/31/2018 [facility] Morbid obesity Active Problem 03/31/2018 [facility] PVC (<span Active Problem 03/31/2018 [facility] ID="[id number]">[facility] nfirmed</span>) Medications Medication Details Route Status [...] Neuro Bitartrate 10 MG Refill(s) Oral Tablet [Axtell 10/325] gabapentin 400 MG 400 mg=1 Active [...] cm 12/23/2017 [facility] Weight 113.636 12/23/2017 [facility] BMI Calculated 37 12/23/2017 [facility] Systolic (mm Hg) 107 12/23/2017 [facility] Diastolic (mm Hg) 72 12/23/2017 [facility] Heart Rate 92 12/23/2017 [facility] Systolic (mm Hg) 132 12/02/2017 [facility] Diastolic (mm Hg) 85 12/02/2017 [facility] Heart Rate 83 12/02/2017 [facility] BMI Calculated 37 12/02/2017 [facility] Weight 113.636 12/02/2017 [facility] Height 175.26 cm 12/02/2017 [facility] Neuro Encounters Location Location Encounter Encounter Reason Attending ADM DC Status Source Details Type Number For Provider Date Date Visit [facility] Phone [id number] 11/10 11/12 [facility] Phone [id number] 11/16 11/18 [facility] [id number] [facility] 12/02 Active [facility]patient [id number] [facility] 12/02 [facility] Outpatient [id number] Kartik 12/02 12/03 [facility] [id number] [facility] 12/10 [facility] Outpatient [id number] [facility] 12/10 [facility] Ambulatory [id number] Kartik 12/10 12/10 [facility] Pre-Reg sd Neuro [facility] Outpatient [id number] Kartik 12/10 12/11 [facility] Phone [id number] 12/14 12/16 [facility] Message Neuro [facility]patient [id number] [facility] 12/23 [facility] Outpatient [id number] Kartik 12/23 12/24 [facility] Procedures Procedure Code Date Perfomer Comments Source NJX INTERLAMINAR 12/10/2017 [facility] CRV/THR Neuro Appendectomy [id number] [facility] section [id number] [facility] Repair of [id number] ankle surgery [facility]<sup>1</sup> 2003 [facility] Repair of knee [id number] knee surgery [facility] joint<sup>2</sup> 2008 Neuro Repair of [id number] 3 shoulder [facility] shoulder<sup>3</blunt surgeries 1997 Neuro p> SCS - Spinal cord [id number] spinal cord [facility] stimulation<sup>4< stimulator Neuro /sup> implant 2009,2011,2016
--- OUTSIDE RECORDS SUMMARY | 2018-06-18 19:41 | XMS REPORT | Clinical Summary ---
:1965 Author Organization [facility] Address [address] [place] [address] Care Team Providers Name Role Phone Selvin Monson Primary Care Provider Allergies No Known Allergies Current Medications Prescription Sig. Disp. Refills Start End Date Status Date pantoprazole Take 40 mg by Active (PROTONIX) 40 MG EC mouth daily. tablet cyclobenzaprine Take 5 mg by Active (FLEXERIL) 5 mg mouth 2 (two) tablet times a day. HYDROcodone-acetamin Take 1 tablet by Active ophen (NORCO) 10-325 mouth every 6 mg per tablet (six) hours as needed for moderate pain. DULoxetine Take 60 mg by Active (CYMBALTA) 60 MG mouth daily. capsule FAMOTIDINE/CA Take 1 tablet by Active CARB/MAG HYDROX mouth daily. (PEPCID COMPLETE ORAL) atorvastatin Take 40 mg by Active (LIPITOR) 40 MG mouth every tablet evening. aspirin (ECOTRIN) 81 Take 81 mg by Active MG enteric coated mouth daily. tablet metoprolol succinate Take 1 tablet 90 tablet 3 11/09/19 Active XL (TOPROL-XL) 50 mg (50 mg total) by 8 19 24 hr tablet mouth daily. valsartan-hydrochlor Take 1 tablet by 90 tablet 3 11/09/19 Active othiazide mouth daily. 8 19 (DIOVAN-HCT) 160-25 mg per tablet gabapentin Take 1 capsule 90 capsule 11 02/11/20 Active (NEURONTIN) 400 mg (400 mg total) 8 19 capsule by mouth 3 (three) times a day. BREO ELLIPTA 100-25 Inhale 1 Active mcg/dose blister inhalations once 8 with device powder daily. for inhalation atorvastatin TK 1 T PO QPM 0 10/14/20 Discontinued (LIPITOR) 40 MG 7 17 tablet cyclobenzaprine TK 1 T PO BID 0 10/14/20 Discontinued (FLEXERIL) 10 mg 7 17 tablet DULoxetine TK ONE C PO QD 5 10/14/20 Discontinued (CYMBALTA) 60 MG 7 17 capsule gabapentin TK ONE C PO TID 0 10/14/20 Discontinued (NEURONTIN) 400 mg 7 17 capsule HYDROcodone-acetamin TK 1 T PO BID 0 10/14/20 Discontinued ophen (NORCO) 10-325 FOR PAIN 7 17 mg per tablet ondansetron ODT DISSOLVE 1 T UNT 0 10/14/20 Discontinued (ZOFRAN-ODT) 4 MG BID PRN N 7 17 disintegrating tablet valsartan (DIOVAN) TK 1 T PO QAM 1 10/14/20 Discontinued 160 MG tablet 7 17 pantoprazole TK 1 T PO QD 1 10/14/20 Discontinued (PROTONIX) 40 MG EC 7 17 tablet valsartan (DIOVAN) Take 160 mg by 04/05/20 Discontinued 160 MG tablet mouth daily. 18 gabapentin Take 400 mg by 02/11/20 Discontinued (NEURONTIN) 400 mg mouth 3 (three) 18 capsule times a day. ondansetron ODT Take 4 mg by 11/09/19 Discontinued (ZOFRAN-ODT) 4 MG mouth 2 (two) 18 disintegrating times a day as tablet needed for nausea or vomiting. 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 06/04/2018 Pre-Admit Testing Pre-Admission Chris Villegas, Preop testing Appointment Testing (Primary Dx) 06/04/2018 Hospital Encounter Radiology Chris Villegas, Preop testing 06/04/2018 Anesthesia Event General Surgery Afia De La Torre NP 04/16/2018 Office Visit Cardiology Ángela Manzo Chest pain, unspecified type (Primary Dx); MD Lex Aortic valve disorder 04/16/2018 Transcribe Orders Procedural Ángela Manzo Abnormal Cardiology MD Lex cardiovascular function study (Primary Dx) 04/16/2018 Orders Only Cardiology Vida Banuelos MA 04/05/2018 Office Visit Cardiology Ángela Manzo Essential hypertension ( Primary Dx); MD Lex Aortic valve disorder 02/10/2018 Orders Only Cardiology Pilo Li MA 11/09/2017 Office Visit Cardiology Ángela Manzo Chest pain, unspecified type (Primary Dx); MD Lex SOB (shortness of breath); Essential hypertension 10/14/2017 Hospital Encounter Procedural Ángela Manzo Abnormal EKG Cardiology MD Lex 10/14/2017 Procedure Pass Procedural Cardiology 10/14/2017 Surgery Procedural Ángela Manzo Cv selective coronary Cardiology MD Lex angiography [64905 (CPT)] 10/05/2017 Office Visit Cardiology Ángela Manzo Angina pectoris (Primary Dx ); MD Lex Essential hypertension; Abnormal EKG after 06/17/2017 Family History Medical History Relation Name Comments [...] Vital Sign Reading Time Taken Blood Pressure 92/56 06/09/2018 11:14 AM CDT Pulse 78 06/09/2018 11:14 AM CDT Temperature 35.9 C (96.7 F) 06/09/2018 11:14 AM CDT Respiratory Rate 18 06/09/2018 11:14 AM CDT Oxygen Saturation 96% 06/09/2018 11:14 AM CDT Inhaled Oxygen Concentration - - Weight 119 kg (262 lb) 06/08/2018 5:48 PM CDT Height 175.3 cm (5' 9") 06/08/2018 5:48 PM CDT Body Mass Index 38.69 06/08/2018 5:48 PM CDT Plan of Treatment Health Maintenance Due Date Last Done Comments CERVICAL CANCER SCREENING 1984 BREAST CANCER SCREENING 2013 COLON CANCER SCREENING 2013 SHINGRIX VACCINE (#1) 2013 INFLUENZA VACCINE 06/02/2018 Implants Implanted Type Area Forensic Locksmith Device Identifier Expiration Date Model / Serial / Lot Medronic Procedures Procedure Name Priority Date/Time Associated Comments Diagnosis SURGICAL PATHOLOGY Routine 06/08/2018 9:41 Results for this REQUEST AM CDT procedure are in the results section. NH AN ELECTIVE Routine 06/08/2018 8:20 ENDOTRACHEAL AIRWAY AM CDT Procedure Note - Carlos Jane CRNA - 06/08/2018 8:20 AM CDT Airway Date/Time: 06/08/2018 8:20 AM Performed by: CARLOS JANE Authorized by: NICOLE MORGAN Location: OR Urgency: Elective Difficult Airway: No Anesthesiologist: NICOLE MORGAN Resident/PORTABLE TRACKMAN/AA: CARLOS JANE Performed by: resident/PORTABLE TRACKMAN/AA Preoxygenated with 100% O2: Yes C-spine Precautions Maintained Throughout: Yes Mask Ventilation: Easy mask Final Airway Type: Endotracheal airway Final Endotracheal Airway: ETT Cuffed: Yes Technique Used: Direct laryngoscopy Insertion Site: Oral Blade Type: Mcintosh Laryngoscope Blade/Videolaryngoscope Blade Size: 2 ETT Size (mm): 7.0 Cuff at minimum occlusion pressure: Yes Measured from: Lips ETT to Lips (cm): 22 Placement Verified by: CO2 detection, direct visualization and equal breath sounds Laryngoscopic view: Grade I - full view of glottis Rapid Sequence Induction (RSI): No Modified RSI: No Number of Attempts at Approach: 1 POC GLUCOSE Routine 06/08/2018 6:41 Results for this AM CDT procedure are in the results section. XR CHEST 2 VW Routine 06/04/2018 1:00 Preop testing Results for this PM CDT procedure are in the results section. ESTIMATED GFR Routine 06/04/2018 12:20 Results for this PM CDT procedure are in the results section. TYPE AND SCREEN Routine 06/04/2018 12:20 Preop testing Results for this PM CDT procedure are in the results section. URINALYSIS SCREEN AND Routine 06/04/2018 12:20 Preop testing Results for this MICROSCOPY, WITH PM CDT procedure are in REFLEX TO CULTURE the results section. PROTHROMBIN TIME WITH Routine 06/04/2018 12:20 Preop testing Results for this INR PM CDT procedure are in the results section. PARTIAL THROMBOPLASTIN Routine 06/04/2018 12:20 Preop testing Results for this TIME (PTT) PM CDT procedure are in the results section. COMPREHENSIVE Routine 06/04/2018 12:20 Preop testing Results for this METABOLIC PANEL PM CDT procedure are in the results section. HC COMPLETE BLD COUNT Routine 06/04/2018 12:20 Preop testing Results for this W/AUTO DIFF PM CDT procedure are in the results section. URINE CULTURE Routine 06/04/2018 12:20 Results for this PM CDT procedure are in the results section. NM MYOCARDIAL Routine 04/29/2018 3:42 Chest pain, [...] are in SPECTRAL COLOR DOPPLER the results (26183) section. ECG 12-LEAD Routine 04/05/2018 1:20 Essential Results for this PM CDT hypertension procedure are in the results section. CV SELECTIVE CORONARY Routine 10/14/2017 9:11 Abnormal EKG Results for this ANGIOGRAPHY AM MATH INSTRUCTOR procedure are in the results section. ESTIMATED GFR STAT 10/14/2017 7:15 Results for this AM MATH INSTRUCTOR procedure are in the results section. HC COMPLETE BLD COUNT STAT 10/14/2017 7:15 Results for this W/AUTO DIFF AM MATH INSTRUCTOR procedure are in the results section. BASIC METABOLIC PANEL STAT 10/14/2017 7:15 Results for this AM MATH INSTRUCTOR procedure are in the results section. ECG PRE/POST OP Routine 10/14/2017 7:13 Results for this AM MATH INSTRUCTOR procedure are in the results section. after 06/17/2017 Results Surgical pathology request (06/08/2018 9:41 AM) [facility] DEPARTMENT OF PATHOLOGY AND GENOMIC MEDICINE Surgical pathology report See link below for PDF [facility] DEPARTMENT OF Lab Report PATHOLOGY AND GENOMIC MEDICINE Result status This is Final Report to [facility] DEPARTMENT OF [id number] PATHOLOGY AND GENOMIC MEDICINE Performing Organization Address City/State/[facility] Cent[facility]ode Phone Number [facility] DEPARTMENT OF PATHOLOGY [address] [place] [address] AND GENOMIC MEDICINE POC glucose (06/08/2018 6:41 AM) POC glucose 174 (H) 65 - 99 mg/dL [facility] DEPARTMENT OF PATHOLOGY AND Comment: GENOMIC MEDICINE Meter ID: [id number] Nuclear Equipment Operator: Zelalem Ledesma Performing Organization Address City/[facility] [address]/[facility] Cent[facility]ode Phone Number [facility] DEPARTMENT OF PATHOLOGY [address] [facility] [place] [address] AND mention MEDICINE XR Chest 2 Vw (06/04/2018 1:00 PM) Narrative Performed At EXAMINATION:XR CHEST 2 VW [facility] CLINICAL HISTORY:Z01.818 Encounter for other preprocedural examination, preop testing COMPARISON:None IMPRESSION: PA and lateral radiographs of the chest are reviewed. The heart size is normal. Atelectasis is present in the left lung base. Right lung is clear There is no pleural effusion or pneumothorax. There is no acute osseous abnormality. A neuro stimulatory device is present over the lower thoracic spine. [id number] Procedure Note Interface, Radiology Results Incoming - 06/04/2018 1:05 PM CDT EXAMINATION: XR CHEST 2 VW CLINICAL HISTORY: Z01.818 Encounter for other preprocedural examination, preop testing COMPARISON: None IMPRESSION: PA and lateral radiographs of the chest are reviewed. The heart size is normal. Atelectasis is present in the left lung base. Right lung is clear There is no pleural effusion or pneumothorax. There is no acute osseous abnormality. A neuro stimulatory device is present over the lower thoracic spine. [facility]-[id number] Performing Organization Address City/[facility] [address]/Zipcode Phone Number [facility] [address] [place] [address] Urinalysis screen and microscopy, with reflex to culture (06/04/2018 12:20 PM) Specimen site Clean catch [facility] DEPARTMENT OF PATHOLOGY AND GENOMIC MEDICINE Color, UA Yellow [facility] DEPARTMENT OF PATHOLOGY AND GENOMIC MEDICINE Appearance, UA Clear [facility] DEPARTMENT OF PATHOLOGY AND GENOMIC MEDICINE Specific gravity, UA 1.021 1.001 - 1.030 [facility] DEPARTMENT OF PATHOLOGY AND GENOMIC MEDICINE pH, UA 6.0 5.0 - 9.0 [facility] DEPARTMENT OF PATHOLOGY AND GENOMIC MEDICINE Protein, UA Negative Negative [facility] DEPARTMENT OF PATHOLOGY AND GENOMIC MEDICINE Glucose, UA 1+ (A) Negative [facility] DEPARTMENT OF PATHOLOGY AND GENOMIC MEDICINE Ketones, UA Negative Negative [facility] DEPARTMENT OF PATHOLOGY AND GENOMIC MEDICINE Bilirubin, UA Negative Negative [facility] DEPARTMENT OF PATHOLOGY AND GENOMIC MEDICINE Blood, UA Small (A) Negative [facility] DEPARTMENT OF PATHOLOGY AND GENOMIC MEDICINE Nitrite, UA Negative Negative [facility] DEPARTMENT OF PATHOLOGY AND GENOMIC MEDICINE Urobilinogen, UA <2.0 <2.0 E.U./dL [facility] DEPARTMENT OF PATHOLOGY AND GENOMIC MEDICINE Leukocyte esterase, UA Negative Negative [facility] DEPARTMENT OF PATHOLOGY AND GENOMIC MEDICINE Epithelial cells, UA <1 /HPF [facility] DEPARTMENT OF PATHOLOGY AND GENOMIC MEDICINE WBC, UA <1 0 - 4 /HPF [facility] DEPARTMENT OF PATHOLOGY AND GENOMIC MEDICINE RBC, UA 2 0 - 5 /HPF [facility] DEPARTMENT OF PATHOLOGY AND GENOMIC MEDICINE Bacteria, UA None seen None seen [facility] DEPARTMENT OF PATHOLOGY AND GENOMIC MEDICINE Yeast, UA None seen [facility] DEPARTMENT OF PATHOLOGY AND GENOMIC MEDICINE Yeast with pseudohyphae, UA None seen [facility] DEPARTMENT OF PATHOLOGY AND GENOMIC MEDICINE Specimen Urine Performing Organization Address City/State/Zipcode Phone Number [facility] DEPARTMENT OF PATHOLOGY [address] [place] [address] AND [facility] Estimated GFR (06/04/2018 12:20 PM)Only the most recent of2 resultswithin the time period is included. GFR Non Af Amer 58 (A) mL/min/1.73 m2 [facility] DEPARTMENT OF PATHOLOGY AND GENOMIC MEDICINE GFR Af Amer 70 mL/min/1.73 m2 [facility] DEPARTMENT OF Comment: PATHOLOGY AND GENOMIC Chronic [...] Americans. Specimen Plasma specimen Performing Organization Address City/[facility] [address]/[facility] Centercode Phone Number [facility] DEPARTMENT OF PATHOLOGY [address] [place] [address]. [place] [address] AND [facility] Partial thromboplastin time, activated (06/04/2018 12:20 PM) PTT 24.9 23.0 - 36.0 sec [facility] DEPARTMENT OF Comment: PATHOLOGY AND [facility] PTT therapeutic range for unfractionated heparin is MEDICINE 61.0-112.0 seconds which corresponds to Anti-Xa 0.3-0.7 U/ml. Specimen Blood Performing Organization Address [facility] [address]/[facility] Centercode Phone Number [facility] PATHOLOGY [address] [place] [address] AND [facility] Prothrombin time with INR (06/04/2018 12:20 PM) Prothrombin time 13.5 12.0 - 15.0 sec [facility] DEPARTMENT OF PATHOLOGY AND mention MEDICINE INR 1.0 [facility] DEPARTMENT OF Comment: PATHOLOGY AND mention The International Normalized Ratio (INR) is a therapeutic MEDICINE monitoring tool for patients who are stable on oral anticoagulant therapy. An INR of 2.0-3.0 is suggested for deep vein thrombosis/pulmonary embolism. Specimen Blood Performing Organization Address [facility] Centercoar Phone Number [facility] DEPARTMENT OF PATHOLOGY [address] [place] [address]. [address] CBC with platelet and differential (06/04/2018 12:20 PM)Only the most recent of2 resultswithin the time period is included. WBC 9.7 4.5 - 11.0 k/uL [facility] DEPARTMENT OF PATHOLOGY AND GENOMIC MEDICINE RBC 5.06 4.20 - 5.50 m/uL [facility] DEPARTMENT OF PATHOLOGY AND GENOMIC MEDICINE HGB 13.4 12.0 - 16.0 g/dL [facility] DEPARTMENT OF PATHOLOGY AND GENOMIC MEDICINE HCT 41.6 37.0 - 47.0 % [facility] DEPARTMENT OF PATHOLOGY AND GENOMIC MEDICINE MCV 82.2 82.0 - 100.0 fL [facility] DEPARTMENT OF PATHOLOGY AND GENOMIC MEDICINE MCH 26.5 (L) 27.0 - 34.0 pg [facility] DEPARTMENT OF PATHOLOGY AND GENOMIC MEDICINE MCHC 32.2 31.0 - 37.0 g/dL [facility] DEPARTMENT OF PATHOLOGY AND GENOMIC MEDICINE RDW - SD 42.7 37.0 - 55.0 fL [facility] DEPARTMENT OF PATHOLOGY AND GENOMIC MEDICINE MPV 9.1 6.9 - 11.0 fL [facility] DEPARTMENT OF PATHOLOGY AND GENOMIC MEDICINE Platelet count 316 150 - 400 K/uL [facility] DEPARTMENT OF PATHOLOGY AND GENOMIC MEDICINE Nucleated RBC 0.00 /100 WBC [facility] DEPARTMENT OF PATHOLOGY AND GENOMIC MEDICINE Neutrophils 60.3 39.0 - 69.0 % [facility] DEPARTMENT OF PATHOLOGY AND GENOMIC MEDICINE Lymphocytes 27.6 25.0 - 45.0 % [facility] DEPARTMENT OF PATHOLOGY AND GENOMIC MEDICINE Monocytes 6.7 0.0 - 10.0 % [facility] DEPARTMENT OF PATHOLOGY AND GENOMIC MEDICINE Eosinophils 3.8 0.0 - 5.0 % [facility] DEPARTMENT OF PATHOLOGY AND GENOMIC MEDICINE Basophils 0.6 0.0 - 1.0 % [facility] DEPARTMENT OF PATHOLOGY AND GENOMIC MEDICINE Immature granulocytes 1.0 0.0 - 1.0 % [facility] DEPARTMENT OF PATHOLOGY AND GENOMIC MEDICINE Specimen Blood Performing Organization Address City/[facility] [address]/[facility] Centercode Phone Number [facility] DEPARTMENT OF PATHOLOGY [address] [place] [address] AND mention MEDICINE Type and screen (06/04/2018 12:20 PM) ABO grouping A [facility] DEPARTMENT OF PATHOLOGY AND GENOMIC MEDICINE Rh type POS [facility] DEPARTMENT OF PATHOLOGY AND GENOMIC MEDICINE Antibody screen (gel) NEG [facility] DEPARTMENT OF PATHOLOGY AND GENOMIC MEDICINE Specimen Blood Performing Organization Address [facility] [address]/[facility] Centercode Phone Number [facility] DEPARTMENT OF PATHOLOGY [address] [place] [address] AND [facility] Urine culture (06/04/2018 12:20 PM) Urine culture SEE COMMENTComment: Bacteriuria [facility] DEPARTMENT OF PATHOLOGY screen negative. AND GENOMIC MEDICINE Performing Organization Address City/[facility] [address]/Zipcode Phone Number [facility] DEPARTMENT OF PATHOLOGY [address] [place] [address] AND [facility] Comprehensive metabolic panel (06/04/2018 12:20 PM) Sodium 139 135 - 148 mEq/L [facility] DEPARTMENT OF PATHOLOGY AND GENOMIC MEDICINE Potassium 4.3 3.5 - 5.0 mEq/L [facility] DEPARTMENT OF PATHOLOGY AND GENOMIC MEDICINE Chloride 98 98 - 112 mEq/L [facility] DEPARTMENT OF PATHOLOGY AND GENOMIC MEDICINE CO2 29 24 - 31 mEq/L [facility] DEPARTMENT OF PATHOLOGY AND GENOMIC MEDICINE Anion gap 12@ANIO 7 - 15 mEq/L [facility] DEPARTMENT OF PATHOLOGY AND GENOMIC MEDICINE BUN 19 6 - 20 mg/dL [facility] DEPARTMENT OF PATHOLOGY AND GENOMIC MEDICINE Creatinine 1.0 (H) 0.5 - 0.9 mg/dL [facility] DEPARTMENT OF PATHOLOGY AND GENOMIC MEDICINE Glucose 137 (H) 65 - 99 mg/dL [facility] DEPARTMENT OF PATHOLOGY AND GENOMIC MEDICINE Calcium 9.9 8.3 - 10.2 mg/dL [facility] DEPARTMENT OF PATHOLOGY AND GENOMIC MEDICINE Protein 8.0 6.3 - 8.3 g/dL [facility] DEPARTMENT OF PATHOLOGY AND GENOMIC MEDICINE Albumin 4.3 3.5 - 5.0 g/dL [facility] DEPARTMENT OF PATHOLOGY AND GENOMIC MEDICINE A/G ratio 1.2 0.7 - 3.8 [facility] DEPARTMENT OF PATHOLOGY AND GENOMIC MEDICINE Alkaline phosphatase 114 (H) 35 - 104 U/L [facility] DEPARTMENT OF PATHOLOGY AND GENOMIC MEDICINE AST 26 10 - 35 U/L [facility] DEPARTMENT OF PATHOLOGY AND GENOMIC MEDICINE ALT 32 5 - 50 U/L [facility] DEPARTMENT OF PATHOLOGY AND GENOMIC MEDICINE Total bilirubin 0.9 0.2 - 1.2 mg/dL [facility] DEPARTMENT OF PATHOLOGY AND GENOMIC MEDICINE Specimen Plasma specimen Performing Organization Address City/State/Zipcode Phone Number [facility] DEPARTMENT OF PATHOLOGY [address] [place] [address] AND mention [facility] Cv stress test (04/29/2018 3:42 PM) Resting HR 67 [facility] M[facility] Resting BP 137 [facility] Peak MET Achieved 1.0 [facility] Protocol Name Merari [facility] Time in Exercise Phase 00:00:12 H MUSE Max Systolic BP 144 [facility]USE Max Diastolic BP 80 [facility] Max Heart Rate 92 [facility] MUSE Max Predicted Heart Rate 165 [facility] Target HR Formula (220 - Age)*85% H MUSE Test Indication chest pain H MUSE Arrhy During Ex [facility] ECG Interp Before EX [facility] ECG Interp During Ex [facility] MUSE Ex Summary Comment [facility] Overall HR Response to H MUSE Exercise Overall BP Response To H MUSE Exercise Reason for Termination Regadenoson protocol/Shortness [facility] M[facility] of breath Stress Test Impression Waveform interpreted in report [facility] associated with image study. No interpretation is provided as part of this Stress ECG report.--Electronically Signed By Lucrecia MEJIA, Tristan Lee ([id number]), television news video editor Sharlene Patel ([id number]) on 05/03/2018 3:12:04 PM Performing Organization Address City/State/Zipcode Phone Number [facility] [address] [place] [address] Me myocardial perfusion (04/29/2018 3:42 PM) Narrative Performed At [facility] [address] [facility], [address] [place] [address] Fax: Myocardial Perfusion Imaging Report Pat.Name:Moshe CLEARY.ID:[id number] .Date: 04/29/2018 Refer.MD:ÁNGELA MANZO MD Exam Time: 10:15:00 AM Study Type:Myocardial Perfusion Imaging Height:69inWeight: 262lb BSA: 2.32 m2 DOBAge:1965,53Y Sex: FEMALE Nuclear Tech:LARISSA Brand, [facility] Nuclear Event ID:[id number] Order ID:[id number] Reason for Study:Abnormal EKG*, Chest pain, unspecified*, Aortic valve disorders Procedures:Stress only Race: Clinical Symptoms:Regadenoson SUMMARY: BASELINE ECGNormal Sinus Rhythm, LVH by voltage STRESS TEST RESULTS Maximal Predicted HR165 beats/minute 85% Maximal Predicted HR 140 beats/minute Stress Test Duration1 minutes 00 seconds Resting Heart Rate67 beats/minute Maximal Heart Rate92 beats/minute Resting Blood Yjydzmui369/78 mmHg Maximal Blood Jppwbnzm344/80 mmHg % Maximal Heart Rate Achieved 55% [...] 04/29/2018 6:17 PM CDT [facility] [address] [place] [address], [address] [place] [address] Myocardial Perfusion Imaging Report Pat.Name: VARSHA CLEARY Pat.ID: [id number] .Date: 04/29/2018 Refer.MD: ÁNGELA MANZO MD Exam Time: 10:15:00 AM Study Type:Myocardial Perfusion Imaging Height: 69in Weight: 262lb BSA: 2.32 m2 Age: 4 1965,53Y Sex: FEMALE Nuclear Tech:LARISSA Brand, [facility](CT) Nuclear Event ID:[id number] Order ID: [id number] Reason for Study:Abnormal EKG*, Chest pain, unspecified*, [...] PM Tristan Singer MD Performing Organization Address City/State/Zipcode Phone Number [facility] [address] [place] [address] Echocardiogram complete w contrast and 3D if needed (04/07/2018 9:48 AM) Narrative Performed At [facility] Echocardiography Report Pat.Name:Moshe CLEARY.ID:[id number] .Date: 04/07/2018Refer.MD:ÁNGELA MANZO MD Exam Time: 8:57:00 AMStudy Type:Routine Echo Height:69inWeight: 262lb BSA: 2.32 m2 DOBAge:1965,52Y Sex: FEMALEBP:109/63 HR:76 bpmSonogrphr: Edmund Bojorquez RDCS Pat. Stat.:OutpatientRoom:[facility] Study Status:Final Echo Event ID:[id number] Order ID:[id number] Reason for Study:Aortic Valve Disorder History / [...] PA systolic pressure. MEASUREMENTS: 2D Parasternal [place] LVOT 1.8 cmLA Ds3.8 cm LVIDd4.7 cmIndex2 cm/m Ao Rtd 2.8 cm Index1.2 cm/m LVIDs2.6 cmLV Igtc070 g(87-129) LV%fs 44.8 % LVM Index 58.2 g/m2 IVSd 0.8 cmRWT0.4 LVPWd0.9 cm LA Sng Plane LA Area 22.5 cm2(8.8-23.4) LA Vol67.7 ml Index29.2 ml/m LA LngAx 6.3 cm DOPPLER AV For Flow/JAE AV pkVel 216.3 cm/s (100-170) AV AC/ET 0.4 AV mnVel 145 cm/Elena TVI44.2 cm AV pkPG 18.7 mmHgAVpkAcRt 2622.6 cm/s2 AV Mean G 10 mmHgAV AyXx576.1 cm/s2 AV AC124 msec (83-118) AV Area1.9 cm2(3-5) AV ET305 msec LVOT For Flow LVOT Area2.5 cm2 LVOT SV 82.5 ml EINMymBvw420.4 cm/sHR75.8 bpm BDECcgKW50 mmHgLVOT CO6.3 l/min LVOTmnPG 5.8 mmHgLVOT CI2.7 l/m/m2 LVOT TVI32.4 cm RVOT Stroke Vol ann2.5 cmCO 5.8 l/min TVI 14.9 cmCI 2.5 l/m/m2 Tm 295 knxkGC23 bpm SV72.9 ml Signed 04/08/2018 10:32 AM Jenny Vernon M.D. Procedure Note Interface, Radiology Results In - 04/08/2018 10:33 AM CDT [facility] Echocardiography Report Pat.Name: VARSHA CLEARY.ID: [id number] St.Date: 04/07/2018 Refer.MD: ÁNGELA MANZO MD Exam Time: 8:57:00 AM Study Type:Routine Echo Height: 69in Weight: 262lb BSA: 2.32 m2 Age: 6 1965,52Y Sex: FEMALE BP: 109/63 HR: 76 bpm Sonogrphr: Edmund Bojorquez RDCS Pat. Stat.:Outpatient Room: [facility] Study Status:Final Echo Event ID:[id number] Order ID: [id number] Reason for Study:Aortic Valve Disorder History / [...] PA systolic pressure. MEASUREMENTS: 2D Parasternal [place] LVOT 1.8 cm LA Ds 3.8 cm [...] AM Jenny Vernon M.D. Performing Organization Address [facility] [address]/[facility] CenterPureWave Networksar Phone Number [employer] [address] [place] [address] ECG 12 lead (04/05/2018 1:20 PM) Ventricular rate 74 [facility] MUSE Atrial rate 74 [facility] MUSE NH interval 162 [facility] MUSE QRSD interval 116 [facility] MUSE QT interval 414 [facility] MUSE QTC interval 459 [facility] MUSE P axis 1 52 [facility] MUSE QRS axis 1 -34 [facility] MUSE T wave axis 43 [facility] MUSE EKG impression Normal sinus rhythm-Left axis deviation Left [facility] MUSE anterior fascicular block-Left ventricular hypertrophy with QRS widening- Performing Organization Address [facility] [address]/[facility] Phone Number [facility] MUSE [address] [place] [address] Cv bundle tier and labeler procedure (10/14/2017 9:11 AM) Narrative Performed At No coronary atherosclerosis; LAD and circumflex come off of separate CUPID ostia from the left sinus of valsalva Performing Organization Address [facility] [address]/[facility] Phone Number [employer] [address] [place] [address] Basic metabolic panel (10/14/2017 7:15 AM) Sodium 139 135 - 148 mEq/L [facility] DEPART[facility] OF PATHOLOGY AND GENOMIC MEDICINE Potassium 4.0 3.5 - 5.0 mEq/L [facility] OF [facility]OLOGY AND GENOMIC MEDICINE Chloride 101 98 - 112 mEq/L [facility] OF PATHOLOGY AND GENOMIC MEDICINE CO2 23 (L) 24 - 31 mEq/L [facility] OF PATHOLOGY AND GENOMIC MEDICINE Anion gap 15 7 - 15 mEq/L [facility] DEPARTMENT OF PATHOLOGY Comment: [facility] Starting from January , anion gap calculation no longer incorporates potassium. Please note the change. BUN 20 6 - 20 mg/dL [facility] DE[facility]MENT OF PATHOLOGY AND GENOMIC MEDICINE Creatinine 1.0 (H) 0.5 - 0.9 mg/dL [facility] OF PATHOLOGY AND GENOMIC MEDICINE Glucose 128 (H) 65 - 99 mg/dL [facility] OF PATHOLOGY AND GENOMIC MEDICINE Calcium 9.0 8.3 - 10.2 mg/dL [facility] DEPARTMENT OF PATHOLOGY AND GENOMIC MEDICINE Specimen Plasma specimen Performing Organization Address [facility] [address]/[facility] Phone Number [facility] AND [address] [place] [address] [facility] ECG Pre/Post Op (10/14/2017 7:13 AM) Ventricular rate 84 [facility] MUSE Atrial rate 84 [facility] M[facility] NH interval 150 [facility] M[facility] QRSD interval 106 [facility] MUSE QT interval 384 [facility] MUSE QTC interval 453 [facility] MUSE P axis 1 25 [facility] MUSE QRS axis 1 -43 [facility] MUSE T wave axis 59 [facility] MUSE EKG impression Normal sinus rhythm-Left axis deviation Left anterior fascicular block-Moderate voltage criteria for LVH, may be normal variant- Abnormal ECG-In automated comparison with ECG of 05-OCT-2017 13:30,-Minimal criteria for Septal infarct are no longer [facility] MUSE present- :37 PM Performing Organization Address City/[facility] [address]/[facility] Cent[facility]ode Phone Number [facility] [employer] [address] [place] [address] after 06/17/2017 Insurance Payer Benefit Plan / Group Subscriber ID Type Phone Address AETNA AETNA HMO,POS,EPO, MC/EC xxxxxxxxxx HMO [phone] [place] [id number]
[2018-06-18] MEDS ORDERED: ACETAMINOPHEN 500 MG TAB ONE (20:03)
[2018-06-18 21:27] LABS: Absolute Lymphocytes (CBC) 2.5 K/uL (0.7-4.9); Absolute Monocytes 0.9 K/uL (0.1-1.3); Absolute Neutrophil 8.5 K/uL (1.8-8.0); Basophils % 0.6 % (0-1.3); Eosinophils % 4.4 % (0-4.4); Hematocrit 36.5 % (36.0-45.0); Lymphocytes % 19.8 % (15.3-44.8); MCH 26.8 pg (27.0-35.0); MCV 79.1 fL (80-100); MPV 7.4 fL (7.6-11.3); Monocytes % 7.1 % (3.3-12.3); RBC Red Blood Cell Count 4.62 M/uL (3.86-4.86)
[2018-06-18] MEDS ORDERED: NA CHLORIDE 0.9% 1,000 ML ONE (21:29)
[2018-06-18 21:33] LABS: Protime INR 1.16
[2018-06-18 21:55] LABS: ALT/SGPT 31 U/L (12-78); AST/SGOT 29 U/L (15-37); Albumin 3.4 g/dL (3.4-5.0); Alkaline Phosphatase 107 U/L (45-117); Amylase Level 29 U/L (25-115); BUN Blood Urea Nitrogen 19 mg/dL (7-18); Bicarbonate 27 mmol/L (21-32); Bilirubin Direct 0.2 mg/dL (0-0.2); Bilirubin Total 1.3 mg/dL (0.2-1.0); CKMB Creatine Kinase MB < 1.0 ng/mL (0.3-3.6); Creatine Phosphokinase 200 U/L (26-192); Glucose Level 136 mg/dL (74-106); Lipase 123 U/L (73-393); Potassium 3.5 mmol/L (3.5-5.1); Protein, Total 8.1 g/dL (6.4-8.2); Sodium Level 132 mmol/L (136-145)
--- NOTE | 2018-06-18 22:13 | RAD REPORT ---
EXAM DESCRIPTION: RAD - Chest Pa And Lat (2 Views) - 06/18/2018 9:19 pm CLINICAL HISTORY: Cough, fever, approximately 1 week status post total hysterectomy COMPARISON: January 2018 TECHNIQUE: PA and lateral views of the chest were obtained. FINDINGS: The lungs are normal volume. There is ill-defined opacification in the right upper lung fi eld partially obscured by the clavicle and anterior first rib. In the acute clinical setting this is most likely pneumonia. Development of a mass since January would be unusual. Follow-up imaging after me dical management could be performed to assure resolution. Interstitial markings are prominent in each base. This is increased over comparison in could be addit ional site of interstitial pneumonia. Heart size is normal and central vasculature is within normal limits. No pleural effusion or pneu mothorax seen. No acute bony finding noted. No aortic abnormality. IMPRESSION: Ill-defined right upper lobe opacification most likely a small acute pneumonia. Increased interstitial markings in each base probably additional site of pneumonia. Right upper lobe mass is unlikely; however, follow-up imaging after medical management would be neede d in 4-6 weeks to assure complete clearing of the right upper lobe finding.
[2018-06-18 22:33] LABS: Urine Blood TRACE (NEG); Urine Glucose NEGATIVE (NEG); Urine Protein NEGATIVE (NEG); Urine Specific Gravity 1.015 (1.005-1.030)
[2018-06-18] MEDS ORDERED: Levofloxacin 750mg IV 750 MG/150 ML BAG IV ONE (22:42)
--- NOTE | 2018-06-19 00:09 | EDPHYS ---
Physician Documentation [facility] Name: Varsha Rajan Age: 53 yrs Sex: Female : 1965 Arrival Date: 06/18/2018 Time: 19:43 Bed 15 Private MD: Selvin Monson T ED Physician Dougie Kowalski HPI: 06/18 22:00 This 53 yrs old Female presents to ER via Wheelchair with complaints of cp Fever, Cough. 22:00 The patient reports fever, with an emergency department temperature of 101.8 degrees cp Fahrenheit. 22:00 Onset: The symptoms/episode began/occurred 2 day(s) ago. cp 22:00 Associated signs and symptoms: Pertinent positives: cough, fever, Pertinent negatives: cp abdominal pain, chest pain, diarrhea, hemoptysis, runny nose, skin rash, vomiting. Patient reports having total hysterectomy on 06-08-2018 \\T\\[facility]. 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 la1 Historical: - Allergies: 19:56 No Known Allergies; la1 - Home Meds: 06/19 01:07 valsartan-hydrochlorothiazide 160-25 mg oral tab 1 tab once daily [Active]; metoprolol ao tartrate 50 mg Oral tab 1 tab once daily [Active]; Protonix 40 mg Oral TbEC 1 tab once daily [Active]; gabapentin 400 mg oral cap 1 cap 3 times per day [Active]; cyclobenzaprine 10 mg Oral tab 1 tab 2 times per day [Active]; ducoxetine 60mg Daily [Active]; breoellipta inhaler one a day [Active]; metformin 500 mg Oral tab 1 tab 1 time per day [Active]; Arnuity 100 Mg one per day [Active]; ibuprofen 600 mg Oral tab 1 tab every 8 hours [Active]; rosuvastatin 20 mg oral tab 1 tab once daily [Active]; - PMHx: 06/18 19:56 Diabetes - NIDDM; Asthma; CRPS; Hypertension; High Cholesterol; Aortic regurg; LPR; la1 Tremors; Sleep Apnea; - PSHx: 19:56 Hysterectomy; ; shoulder sx; Knee surgery; ankle sx; Appendectomy; la1 - Immunization history:: Adult Immunizations up to date. - Social history:: Smoking status: Patient/guardian denies using tobacco. - Ebola Screening: : No symptoms or risks identified at this time. ROS: 22:05 Constitutional: Positive for fever, Negative for poor PO intake. cp 22:05 Eyes: Negative for injury, pain, redness, and discharge. cp 22:05 ENT: Negative for drainage from ear(s), ear pain, sore throat, difficulty swallowing, difficulty handling secretions. 22:05 Cardiovascular: Negative for chest pain, edema. 22:05 Respiratory: Positive for cough, "sounds productive", Negative for shortness of breath, wheezing. 22:05 Abdomen/GI: Negative for abdominal pain, nausea, vomiting, and diarrhea, black/tarry stool, rectal bleeding. 22:05 Skin: Negative for cellulitis, rash. 22:05 Neuro: Negative for altered mental status, headache, syncope, near syncope, weakness. 22:05 All other systems are negative. Exam: 21:45 ECG was reviewed by the Attending Physician. cp 22:12 Constitutional: The patient appears in no acute distress, alert, awake, non-toxic, well cp developed, well nourished, febrile. 22:12 Head/Face: Normocephalic, atraumatic. Eyes: Pupils equal round and reactive to light, cp extra-ocular motions intact. Lids and lashes normal. Conjunctiva and sclera are non-icteric and not injected. Cornea within normal limits. Periorbital areas with no swelling, redness, or edema. ENT: Nares patent. No nasal discharge, no septal abnormalities noted. Tympanic membranes are normal and external auditory canals are clear. Oropharynx with no redness, swelling, or masses, exudates, or evidence of obstruction, uvula midline. Mucous membranes moist. Neck: Trachea midline, no thyromegaly or masses palpated, and no cervical lymphadenopathy. Supple, full range of motion without nuchal rigidity, or vertebral point tenderness. No Meningismus. Chest/axilla: Normal chest wall appearance and motion. Nontender with no deformity. No lesions are appreciated. 22:12 Cardiovascular: Rate: normal, Rhythm: regular, Pulses: Pulses are 2+ in right radial artery and left radial artery. Edema: is not appreciated, JVD: is not appreciated. 22:12 Respiratory: the patient does not display signs of respiratory distress, Respirations: normal, no use of accessory muscles, no retractions, no splinting, no tachypnea, labored breathing, is not present, Breath sounds: are clear throughout, no decreased breath sounds, no stridor, no wheezing. 22:12 Abdomen/GI: Inspection: scar(s), Bowel sounds: active, all quadrants, Palpation: soft, in all quadrants, mild abdominal tenderness, in all quadrants, rebound tenderness, is not appreciated, involuntary guarding, is not appreciated. 22:12 Back: pain, is absent, ROM is normal. 22:12 Musculoskeletal/extremity: Exam is negative for decreased range of motion, deformity, injury. 22:12 Skin: cellulitis, is not appreciated, no rash present. 22:12 Neuro: Orientation: to person, place \\T\\ time. Mentation: lucid, able to follow commands, Cerebellar function: is grossly normal, Motor: moves all fours, strength is normal, Sensation: no obvious gross deficits. Vital Signs: 19:56 BP 136 / 80; Pulse 115; Resp 19; Temp 101.8(O); Pulse Ox 97% on R/A; Weight 114.31 kg; la1 Height 5 ft. 9 in. (175.26 cm); 21:55 BP 120 / 70; Pulse 88; Resp 20; Temp 99.2(O); Pulse Ox 100% ; Pain 0/10; ao 22:40 BP 113 / 60; Pulse 87; Resp 20; Pulse Ox 98% on R/A; ao 23:27 BP 115 / 62; Pulse 85; Resp 16; Pulse Ox 99% on R/A; ao 06/19 00:37 BP 116 / 69; Pulse 87; Resp 16; Pulse Ox 96% on R/A; Pain 5/10; ao 06/18 19:56 Body Mass Index 37.21 (114.31 kg, 175.26 cm) la1 MDM: 06/18 21:35 Patient medically screened. cp 22:00 Differential diagnosis: URI, bronchitis, pneumonia UTI, meningitis, sepsis, cellulitis. cp 06/19 00:05 Data reviewed: vital signs, nurses notes, lab test result(s), EKG, radiologic studies, cp CT scan, plain films, and as a result, I will admit patient. 00:05 Test interpretation: by ED physician or midlevel provider: ECG, plain radiologic cp studies. Counseling: I had a detailed discussion with the patient and/or guardian regarding: the historical points, exam findings, and any diagnostic results supporting the discharge/admit diagnosis, lab results, radiology results, the need for further work-up and treatment in the hospital. Response to treatment: the patient's symptoms have markedly improved after treatment. 00:06 Physician consultation: Leah Vieyra MD was called at 00:07, was contacted at 00:07, cp regarding admission, to the telemetry unit. patient's condition. 06/18 21:10 Order name: Amylase, Serum; Complete Time: 22:23 ao 06/18 21:10 Order name: Basic Metabolic Panel; Complete Time: 22:23 ao 06/19 00:06 Interpretation: Normal except: NA 132; CL 97; GLUC 136; BUN 19; GFR 47. cp 06/18 21:10 Order name: Blood Culture Adult (2) ao 06/18 21:10 Order name: C-Reactive Protein; Complete Time: 22:23 ao 06/18 21:10 Order name: CBC with Diff; Complete Time: 22:23 ao 06/18 21:10 Order name: Ckmb; Complete Time: 22:23 ao 06/18 21:10 Order name: CPK; Complete Time: 22:23 ao 06/18 21:10 Order name: Lactate; Complete Time: 22:23 ao 06/18 21:10 Order name: LFT's; Complete Time: 22:23 ao 06/18 21:10 Order name: Lipase; Complete Time: 22:23 ao 06/18 21:10 Order name: Procalcitonin; Complete Time: 22:23 ao 06/18 21:10 Order name: Protime (+inr); Complete Time: 22:23 ao 06/18 21:10 Order name: Ptt, Activated; Complete Time: 22:23 ao 06/18 21:10 Order name: Sed Rate; Complete Time: 22:23 ao 06/18 19:59 Order name: Chest Pa And Lat (2 Views) XRAY; Complete Time: 22:23 la1 06/18 21:10 Order name: Troponin (emerg Dept Use Only); Complete Time: 22:23 ao 06/18 21:10 Order name: Accucheck; Complete Time: 21:55 ao 06/18 21:10 Order name: Cardiac monitoring; Complete Time: 21:50 ao 06/18 21:10 Order name: EKG - Nurse/Tech; Complete Time: 21:50 ao 06/18 21:10 Order name: IV Saline Lock - Large Bore; Complete Time: 21:12 ao 06/18 21:10 Order name: Labs collected and sent; Complete Time: 21:12 ao 06/18 21:10 Order name: O2 Per Protocol; Complete Time: 21:12 ao 06/18 21:10 Order name: O2 Sat Monitoring; Complete Time: 21:12 ao 06/18 21:10 Order name: Urine Dipstick-Ancillary (obtain specimen); Complete Time: 00:28 ao 06/18 22:25 Order name: CT Chest For PE Angio cp 06/18 22:28 Order name: Urine Dipstick--Ancillary (enter results); Complete Time: 00:06 rg2 06/18 21:41 Order name: Cath; Complete Time: 22:21 cp EC/17 21:45 Rate is 86 beats/min. Rhythm is regular. ME interval is normal. QRS interval is cp prolonged at 116 msec. QT interval is prolonged at 402 msec. Interpreted by me. Reviewed by me. Administered Medications: 19:59 Drug: Tylenol 1000 mg Route: PO; la1 06/19 00:37 Follow up: Response: No adverse reaction; Temperature is decreased; Pain is decreased ao 06/18 21:27 Drug: NS 0.9% (30 ml/kg) 30 ml/kg Route: IV; Rate: bolus; Site: right antecubital; ao 06/19 00:36 Follow up: IV Status: Completed infusion; IV Intake: 1000ml ao 06/18 22:50 Drug: LevaQUIN 750 mg Volume: 150 ml; Route: IVPB; Infused Over: 90 mins; Site: right ea antecubital; 06/19 00:36 Follow up: IV Status: Completed infusion; IV Intake: 150ml ao 00:35 Drug: fentaNYL (PF) 25 mcg Route: IVP; Site: right antecubital; ao 06:35 Follow up: Response: No adverse reaction ao Point of Care Testing: Blood Glucose: 06/18 21:55 Blood Glucose: 133 mg/dL; ao Ranges: Critical Glucose Levels:Adult <50 mg/dl or >400 mg/dl <40 mg/dl or >180 mg/dl Disposition: 06/19/18 00:08 Hospitalization ordered by Leah Vieyra for Observation. Preliminary diagnosis is Pneumonia due to other specified bacteria. - Bed requested for Telemetry/MedSurg (observation). - Status is Observation. ao - Condition is Stable. - Problem is new. - Symptoms have improved. UTI on Admission? No Addendum: 06/21/2018 08:58 Co-signature as Attending Physician, Dougie Kowalski MD I agree with the assessment and c schaffer plan of care. Signatures: Dispatcher [employer] EDIL Betzaida Mcclelland RN Dougie Perkins MD MD cha Attema, Lee RN RN la1 Dougie Barron PA PA cp Ortiz, Alex, RN RN ao Naida Meyer RN RN ea Corrections: (The following items were deleted from the chart) 06/19 00:19 00:08 Hospitalization Ordered by Leah Vieyra MD for Observation. Preliminary diagnosis is Pneumonia due to other specified bacteria. Bed requested for Telemetry/MedSurg (observation). Status is Observation. Condition is Stable. Problem is new. Symptoms have improved. UTI on Admission? No. cp 01:28 00:19 06/19/2018 00:08 Hospitalization Ordered by Leah Vieyra MD for Observation. ao Preliminary diagnosis is Pneumonia due to other specified bacteria. Bed requested for Telemetry/MedSurg (observation). Status is Observation. Condition is Stable. Problem is new. Symptoms have improved. UTI on Admission? No.
--- NOTE | 2018-06-19 00:09 | ER ---
Nurse's Notes [facility] Name: Varsha Rajan Age: 53 yrs Sex: Female : 1965 Arrival Date: 06/18/2018 Time: 19:43 Bed 15 Private MD: Selvin Monson T Diagnosis: Pneumonia due to other specified bacteria Presentation: 06/18 19:53 Presenting complaint: Patient states: I had a total hysterectomy on the 7th and for the la1 last few days I have had cough and fever. Transition of care: patient was not received from another setting of care. Onset of symptoms was June 18, 2018. Risk Assessment: Do you want to hurt yourself or someone else? Patient reports no desire to harm self or others. Initial Sepsis Screen: Does the patient meet any 2 criteria? Temp <36.0*C (96.8*F)) or > 38.3*C (100.4*F). HR > 90 bpm. No. Patient's initial sepsis screen is negative. Does the patient have a suspected source of infection? Yes: Productive cough/pneumonia. Care prior to arrival: None. 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 la1 Historical: - Allergies: 19:56 No Known Allergies; la1 - Home Meds: 06/19 01:07 valsartan-hydrochlorothiazide 160-25 mg oral tab 1 tab once daily [Active]; metoprolol ao tartrate 50 mg Oral tab 1 tab once daily [Active]; Protonix 40 mg Oral TbEC 1 tab once daily [Active]; gabapentin 400 mg oral cap 1 cap 3 times per day [Active]; cyclobenzaprine 10 mg Oral tab 1 tab 2 times per day [Active]; ducoxetine 60mg Daily [Active]; breoellipta inhaler one a day [Active]; metformin 500 mg Oral tab 1 tab 1 time per day [Active]; Arnuity 100 Mg one per day [Active]; ibuprofen 600 mg Oral tab 1 tab every 8 hours [Active]; rosuvastatin 20 mg oral tab 1 tab once daily [Active]; - PMHx: 06/18 19:56 Diabetes - NIDDM; Asthma; CRPS; Hypertension; High Cholesterol; Aortic regurg; LPR; la1 Tremors; Sleep Apnea; - PSHx: 19:56 Hysterectomy; ; shoulder sx; Knee surgery; ankle sx; Appendectomy; la1 - Immunization history:: Adult Immunizations up to date. - Social history:: Smoking status: Patient/guardian denies using tobacco. - Ebola Screening: : No symptoms or risks identified at this time. Screenin:31 Abuse screen: Denies threats or abuse. Denies injuries from another. Nutritional ao screening: No deficits noted. Tuberculosis screening: No symptoms or risk factors identified. Fall Risk None identified. Assessment: 20:29 General: Appears in no apparent distress. comfortable, Behavior is calm, cooperative, ao appropriate for age. Pain: Complains of pain in abdomen. Neuro: Level of Consciousness is awake, alert, obeys commands, Oriented to person, place, time, situation, Appropriate for age Moves all extremities. Full function Speech is normal, Facial symmetry appears normal. Cardiovascular: Capillary refill < 3 seconds Patient's skin is warm and dry. Respiratory: Airway is patent Respiratory effort is even, unlabored, Respiratory pattern is regular, symmetrical. GI: Abdomen is round non-distended, obese, Bowel sounds hypoactive in right upper quadrant, left upper quadrant, right lower quadrant and left lower quadrant. : No signs and/or symptoms were reported regarding the genitourinary system. EENT: No signs and/or symptoms were reported regarding the EENT system. Derm: Skin is intact, Skin is dry, Skin is pink, warm \T\ dry. normal, Skin temperature is warm. Musculoskeletal: Circulation, motion, and sensation intact. Range of motion:. 21:30 Reassessment: Patient appears in no apparent distress at this time. Patient and/or ao family updated on plan of care and expected duration. Pain level reassessed. Patient is alert, oriented x 3, equal unlabored respirations, skin warm/dry/pink. Waiting on provider orders. 22:40 Reassessment: Patient appears in no apparent distress at this time. Patient and/or ao family updated on plan of care and expected duration. Pain level reassessed. Patient is alert, oriented x 3, equal unlabored respirations, skin warm/dry/pink. 23:25 Reassessment: Patient appears in no apparent distress at this time. Patient and/or ao family updated on plan of care and expected duration. Pain level reassessed. Patient is alert, oriented x 3, equal unlabored respirations, skin warm/dry/pink. Waiting on dispo orders. 06/19 00:37 Reassessment: Patient appears in no apparent distress at this time. Patient and/or ao family updated on plan of care and expected duration. Pain level reassessed. Patient is alert, oriented x 3, equal unlabored respirations, skin warm/dry/pink. Patient to be admitted to the ER. To call for report pending. 01:27 Reassessment:. ao Vital Signs: 06/18 19:56 BP 136 / 80; Pulse 115; Resp 19; Temp 101.8(O); Pulse Ox 97% on R/A; Weight 114.31 kg; la1 Height 5 ft. 9 in. (175.26 cm); 21:55 BP 120 / 70; Pulse 88; Resp 20; Temp 99.2(O); Pulse Ox 100% ; Pain 0/10; ao 22:40 BP 113 / 60; Pulse 87; Resp 20; Pulse Ox 98% on R/A; ao 23:27 BP 115 / 62; Pulse 85; Resp 16; Pulse Ox 99% on R/A; ao 06/19 00:37 BP 116 / 69; Pulse 87; Resp 16; Pulse Ox 96% on R/A; Pain 5/10; ao 06/18 19:56 Body Mass Index 37.21 (114.31 kg, 175.26 cm) la1 ED Course: 06/18 19:43 Patient arrived in ED. al2 19:43 Selvin Monson MD is Private Physician. al2 19:54 Triage completed. la1 19:56 Arm band placed on left wrist. la1 20:25 Aditya Rodriguez, RN is Primary Nurse. ao 20:31 Patient has correct armband on for positive identification. Pulse ox on. NIBP on. ao 21:00 Sepsis work up initiated according to patient VS and since patient had a hysterectomy ao done last week. 21:05 Inserted saline lock: 20 gauge in right antecubital area, using aseptic technique. ao Blood collected. 21:19 Chest Pa And Lat (2 Views) XRAY In Process Unspecified. EDMS 21:30 Straight cath inserted, using sterile technique, 14 Fr. Specimen obtained. By eli Lambert java manager. 21:34 Dougie Barron PA is PHCP. cp 21:35 Dougie Kowalski MD is Attending Physician. cp 22:42 CT completed. Patient tolerated procedure well. Patient moved to CT via wheelchair. Patient moved back from CT. 22:49 CT Chest For PE Angio In Process Unspecified. EDMS 06/19 00:08 Leah Vieyra MD is Hospitalizing Provider. cp 01:08 No provider procedures requiring assistance completed. Patient admitted, IV remains in ao place. Administered Medications: 06/18 19:59 Drug: Tylenol 1000 mg Route: PO; la1 06/19 00:37 Follow up: Response: No adverse reaction; Temperature is decreased; Pain is decreased ao 06/18 21:27 Drug: NS 0.9% (30 ml/kg) 30 ml/kg Route: IV; Rate: bolus; Site: right antecubital; ao 06/19 00:36 Follow up: IV Status: Completed infusion; IV Intake: 1000ml ao 06/18 22:50 Drug: LevaQUIN 750 mg Volume: 150 ml; Route: IVPB; Infused Over: 90 mins; Site: right ea antecubital; 06/19 00:36 Follow up: IV Status: Completed infusion; IV Intake: 150ml ao 00:35 Drug: fentaNYL (PF) 25 mcg Route: IVP; Site: right antecubital; ao 06:35 Follow up: Response: No adverse reaction ao Point of Care Testing: Blood Glucose: 06/18 21:55 Blood Glucose: 133 mg/dL; ao Ranges: Intake: 18 00:36 IV: 150ml; Total: 150ml. ao 00:36 IV: 1000ml; Total: 1150ml. ao Outcome: 00:08 Decision to Hospitalize by Provider. cp 01:08 Admitted to Tele accompanied by tech, room 407, with chart, Report called to eli Oreilly RN 01:08 Condition: stable 01:08 Instructed on the need for admit. 01:28 Patient left the ED. ao Signatures: Dispatcher [employer] EDTX Harrison Gunderson Lee RN RN la1 Dougie Barron PA PA cp Ortiz, Alex RN Naida Moreland RN RN ea Love, Angelica al2 Corrections: (The following items were deleted from the chart) 06/18 21:22 20:00 Sepsis work up initiated according to patient VS and since patient had a ao hysterectomy done last week ao
[2018-06-19] MEDS ORDERED: FENTANYL CITR 100 MCG/2 ML ONE (00:31)
[2018-06-19] MEDS ORDERED: ONDANSETRON 4 MG (ODT) TAB PO PRN (00:38)
[2018-06-19] MEDS ORDERED: ACETAMINOPHEN 500 MG TAB PO PRN (00:38)
[2018-06-19] MEDS ORDERED: ALBUTEROL 2.5 MG/3 ML NEB SOL NEB SCH (01:00)
[2018-06-19] MEDS ORDERED: IPRATROPIUM BROM 0.5MG/2.5ML ONE (01:19)
[2018-06-19] MEDS: IPRATROPIUM BROM 0.5MG/2.5ML NEB SCH ×4 (01:37→19:28)
[2018-06-19] MEDS: NA CHLORIDE 0.9% 1,000 ML IV SCH ×3 (02:01→17:11)
[2018-06-19 03:16] VITALS: BMI 37.2
[2018-06-19 05:45] LABS: Urine Appearance CLEAR; Urine Bilirubin NEGATIVE (NEG); Urine Blood TRACE (NEG); Urine Color YELLOW; Urine Glucose NEGATIVE (NEG); Urine Microscopic Reflex ORDER UMIC; Urine Protein NEGATIVE (NEG); Urine Specific Gravity >=1.030 (1.005-1.030); Urine Urobilinogen 0.2 mg/dL (0.2-1.0)
[2018-06-19 05:56] LABS: Albumin 2.9 g/dL (3.4-5.0); Bilirubin Total 1.1 mg/dL (0.2-1.0); Potassium 3.1 mmol/L (3.5-5.1); Protein, Total 7.1 g/dL (6.4-8.2)
[2018-06-19 06:08] LABS: Urine Bacteria <20 /HPF (<20); Urine Culture Reflex Order NOT NEEDED; Urine RBC <5 /HPF (NONE SEEN)
--- NOTE | 2018-06-19 08:26 | P.HP ---
Certification for Inpatient Patient admitted to: Inpatient With expected LOS: >2 Midnights Patient will require the following post-hospital care: None Practitioner: I am a practitioner with admitting privileges, knowledge of patient current condition, hospital course, and medical plan of care. Services: Services provided to patient in accordance with Admission requirements found in Title 42 Section 412.3 of the Code of Federal Regulations Patient History Date of Service: 06/19/18 Reason for admission: Shortness of breath and worsening cough History of Present Illness: Patient is a 53-year-old female with a history of asthma. She was recently started on 2 new inhalers. He had been doing well up until a couple of days ago when she started developing a cough. It progressed to a fever and clinically she started doing worse. She came into the hospital for further evaluation. In the emergency room her workup revealed a right upper lobe pneumonia. She was coughing and congested and had diffuse wheezing. However, this did not affect her oxygenation. She was admitted to the hospital for further treatment of her right upper lobe pneumonia. Allergies No Known Allergies Allergy (Verified 09/16/17 08:50) Home Medications: Cyclobenzaprine [Flexeril] 5 mg PO BID 09/16/17 Duloxetine HCl [Cymbalta] 60 mg PO DAILY 09/16/17 Gabapentin [Neurontin] 400 mg PO TID 09/16/17 Hydrocodone Bit/Acetaminophen [Hydrocodon-Acetaminophn 10-325] 1 each PO Q6HP PRN 09/16/17 Pantoprazole [Protonix Tab] 40 mg PO DAILY 09/16/17 Fluticasone/Vilanterol [Breo Ellipta 100-25 Mcg INH] 1 each IH DAILY AFTER SUPPER 05/06/18 Metoprolol Succinate [Toprol Xl] 50 mg PO DAILY AFTER SUPPER 05/06/18 Valsartan/Hydrochlorothiazide [Valsartan-Hctz 160-25 mg Tab] 1 each PO DAILY AFTER SUPPER 05/06/18 Fluticasone Furoate [Arnuity Ellipta] 100 mcg IH BEDTIME 06/19/18 Ibuprofen [Ibu] 1 tab PO Q6HP PRN 06/19/18 Metformin ER [Glucophage ER] 500 mg PO DAILY 06/19/18 Rosuvastatin [Crestor*] 20 mg PO BEDTIME 06/19/18 - Past Medical/Surgical History Has patient received pneumonia vaccine in the past: No Diabetic: Yes -: HTN -: NIDDM -: asthma -: aortic valve disorder -: central tremores -: LVR -: CRPS -: obstructive sleep apnea -: hypercholesterolemia -: TAHBSO -: tubal ligation -: CS x3 -: right shoulder sx x3 -: right ankle sx -: r knee sx -: appendectomy -: cardiac cath - Family History Mother Medical History: Heart disease, Hypertension, Other (see notes) Notes: SLE - Social History Smoking Status: Never smoker Alcohol use: No CD- Drugs: No Caffeine use: No Place of Residence: Home Review of Systems 10-point ROS is otherwise unremarkable Physical Examination - Vital Signs Temperature: 98.1 F Blood Pressure: 117/61 Pulse: 90 Respirations: 18 Pulse Ox (%): 98 - Physical Exam General: Alert, In no apparent distress, Oriented x3 HEENT: Atraumatic, PERRLA, Mucous membr. moist/pink, EOMI, Sclerae nonicteric Neck: Supple, 2+ carotid pulse no bruit, No LAD, Without JVD or thyroid abnormality Respiratory: Diminished, Expiratory wheezes, Rhonchi/gurgles Cardiovascular: Regular rate/rhythm, Normal S1 S2, No murmurs Gastrointestinal: Normal bowel sounds, Soft and benign, Non-distended, No tenderness Musculoskeletal: No clubbing, No swelling, No tenderness Integumentary: No rashes Neurological: Normal gait, Normal speech, Normal strength at 5/5 x4 extr, Normal tone, Sensation intact, Cranial nerves 3-12 intact, Normal affect Lymphatics: No axilla or inguinal lymphadenopathy - Studies Laboratory Data (last 24 hrs) 06/18/18 21:00: PT 13.7 H, INR 1.16, APTT 30.3 06/18/18 21:00: WBC 12.4 H, Hgb 12.4, Hct 36.5, Plt Count 314 06/18/18 21:00: Sodium 132 L, Potassium 3.5, BUN 19 H, Creatinine 1.20, Glucose 136 H, Total Bilirubin 1.3 H, AST 29, ALT 31, Alkaline Phosphatase 107, Amylase 29, Lipase 123 Assessment & Plan - Problems (Diagnosis) (1) Asthma exacerbation Current Visit: Yes Status: Acute (2) Right upper lobe pneumonia Current Visit: Yes Status: Acute (3) Dyspnea Current Visit: Yes Status: Acute (4) HTN (hypertension) Current Visit: Yes Status: Acute (5) DM2 (diabetes mellitus, type 2) Current Visit: Yes Status: Acute (6) Aortic valve disease Current Visit: Yes Status: Acute - Plan Plan: 1. Continue with IV antibiotics 2. Awaiting sputum and blood culture; procalcitonin level 3. Repeat chest x-ray in AM 4. CT scan of the chest pending 5. Continue with nebs 6. O2 per protocol 7. Continue with gentle hydration 8. Repeat labs including CBC and renal function in a.m. 9. Outpt follow-up with Pulmonary 10. GI and DVT prophylaxis Discharge Plan: Home Plan to discharge in: Greater than 2 days - Advance Directives Does patient have a Living Will: No Does patient have a Durable POA for Healthcare: No - Code Status/Comfort Care Code Status Assessed: Yes Code Status: Full Code Critical Care: No Time Spent Managing PTS Care (In Minutes): 50
[2018-06-19 08:48] LABS: Phosphorus 3.2 mg/dL (2.5-4.9)
[2018-06-19] MEDS ORDERED: CEFTRIAXONE 1 GM/NS 50 ML 1 GM/50 ML BAG IV SCH (09:00)
[2018-06-19] MEDS ORDERED: POTASSIUM 25 MEQ EFFERV TAB PO ONE (09:00)
[2018-06-19] MEDS ORDERED: METHYLPREDNISOLONE 125 MG INJ IV SCH (09:00)
[2018-06-19] MEDS: ENOXAPARIN 40 MG/0.4 ML SQ SCH (09:11)
[2018-06-19] MEDS: CEFTRIAXONE/SWI 1gm 1 GM/10 ML SYR IVP SCH (09:11)
--- NOTE | 2018-06-19 09:22 | RAD REPORT ---
EXAM DESCRIPTION: CT - Chest For Pe Angio - 06/19/2018 7:00 am CLINICAL HISTORY: Cough for 2 days. Hysterectomy June 08, 2018 COMPARISON: None. TECHNIQUE: Dynamically enhanced axial 3 mm thick images of the chest were obtained during administra tion of <100> mL Isovue 370 IV contrast. Coronal and oblique reconstruction images were generated and reviewed. Exam utilizes a protocol for optimal evaluation of pulmonary arterial tree.A a preliminary report was generated by virtual radiologic and reviewed prior to this dictation Maximum intensity projections 3D imaging was utilized All CT scans are performed using dose optimization technique as appropriate and may include automated exposure control or mA/KV adjustment according to patient size. FINDINGS: A pulmonary embolus is not seen. A thoracic aortic aneurysm is not noted. A pleural effusion is not seen. A pericardial effusion is not seen. A 5 centimeter right upper lobe opacity is present. A neurostimulator device is in place. Fatty infiltration of liver is present IMPRESSION: Negative for a pulmonary embolism. 5 centimeter right upper lobe opacity probably representing pneumonia. This should be followed until it is clear to exclude an underlying mass
[2018-06-19] MEDS ORDERED: D50W 25 GM/50 ML SYRINGE IV PRN (09:51)
[2018-06-19] MEDS ORDERED: GLUCAGON 1 MG/VIAL IM PRN (09:51)
[2018-06-19] MEDS ORDERED: PNEUMOCOCCAL VACCINE 0.5 ML IMVAC ONE (10:00)
[2018-06-19] MEDS: AZITHROMYCIN IV 500 MG in NA CHLORIDE 0.9% 250 ML IVPB SCH (10:17)
[2018-06-19] MEDS ORDERED: HYDROCODONE/APAP 10/325 TAB PO PRN ×2 (10:47→22:00)
--- NOTE | 2018-06-19 10:50 | P.PN ---
Subjective Date of Service: 06/19/18 Chief Complaint: Right upper lobe pneumonia Patient is 53 years of age admitted with acute onset of cough fever chills diagnosis right upper lobe pneumonia clinically stable Review of Systems Unremarkable Physical Examination - Vital Signs Temperature: 98.1 F Blood Pressure: 117/61 Pulse: 90 Respirations: 18 Pulse Ox (%): 98 - Physical Exam General: Alert, Oriented x3 Respiratory: Clear to auscultation bilaterally Cardiovascular: No edema, Normal S1 S2 - Studies Laboratory Data (last 24 hrs) 06/18/18 21:00: PT 13.7 H, INR 1.16, APTT 30.3 06/18/18 21:00: WBC 12.4 H, Hgb 12.4, Hct 36.5, Plt Count 314 06/18/18 21:00: Sodium 132 L, Potassium 3.5, BUN 19 H, Creatinine 1.20, Glucose 136 H, Total Bilirubin 1.3 H, AST 29, ALT 31, Alkaline Phosphatase 107, Amylase 29, Lipase 123 Assessment & Plan - Problems (Diagnosis) (1) Right upper lobe pneumonia Current Visit: Yes Status: Acute Plan: Patient is 53 years of age admitted with right ammonia labs and x-rays reviewed clinically patient is doing well Dc steroids possible discharge tomorrow patient was recently diagnosed with diabetes Qualifiers: Pneumonia type: due to unspecified organism Qualified Code(s): J18.1 - Lobar pneumonia, unspecified organism
[2018-06-19] MEDS: INSULIN -REGULAR HUMAN 50 UNIT/0.5 ML ML SQ SCH ×3 (11:30→21:00)
[2018-06-19] MEDS: DULOXETINE 30 MG CAP PO SCH (12:23)
[2018-06-19] MEDS: GABAPENTIN 400 MG CAP PO SCH ×3 (12:23→21:07)
[2018-06-19] MEDS: CYCLOBENZAPRINE 10 MG TAB PO SCH ×2 (12:23→21:07)
[2018-06-19] MEDS: PANTOPRAZOLE 40MG TABLET PO SCH (12:24)
[2018-06-19] MEDS ORDERED: METOPROLOL XL 50 MG TAB PO SCH (17:30)
[2018-06-19] MEDS ORDERED: HOME MED 1 EA UNK (Fluticasone/Vilanterol [Breo Ellipta 100-25 Mcg Inh] 1 EACH) IH SCH (17:30)
[2018-06-19] MEDS ORDERED: HOME MED 1 EA UNK (Valsartan/Hydrochlorothiazide [Valsartan-Hctz 160-25 Mg Tab] 1 EACH) PO SCH (17:30)
[2018-06-19] MEDS ORDERED: ROSUVASTATIN 10 MG TAB PO SCH (21:00)
[2018-06-19] MEDS ORDERED: FLUTICASONE FUROATE 100 MCG IH SCH (21:00)
[2018-06-20] MEDS: IPRATROPIUM BROM 0.5MG/2.5ML NEB SCH ×2 (01:59→08:00)
[2018-06-20] MEDS: NA CHLORIDE 0.9% 1,000 ML IV SCH (03:20)
[2018-06-20 05:43] LABS: Absolute Lymphocytes (CBC) 2.1 K/uL (0.7-4.9); Absolute Monocytes 0.9 K/uL (0.1-1.3); Absolute Neutrophil 8.6 K/uL (1.8-8.0); Basophils % 0.2 % (0-1.3); Eosinophils % 0.3 % (0-4.4); Hematocrit 32.5 % (36.0-45.0); Lymphocytes % 17.9 % (15.3-44.8); MCH 26.7 pg (27.0-35.0); MCV 79.4 fL (80-100); MPV 7.4 fL (7.6-11.3); Monocytes % 7.4 % (3.3-12.3)
[2018-06-20] MEDS: INSULIN -REGULAR HUMAN 50 UNIT/0.5 ML ML SQ SCH (07:30)
--- NOTE | 2018-06-20 07:48 | EKG ---
Test Date: 2018-06-18 Test Time: 21:38:15 Talent Manager: [place] MEASUREMENT RESULTS: Intervals: Rate: 86 DE: 152 QRSD: 116 QT: 402 QTc: 481 [place]: P: 24 DE: 152 QRS: -46 T: 58 INTERPRETIVE STATEMENTS: Normal sinus rhythm Left anterior fascicular block Left ventricular hypertrophy with QRS widening Prolonged QT Abnormal ECG Compared to ECG 09/10/2017 09:21:43 Left anterior fascicular block now present Prolonged QT interval now present Left-axis deviation no longer present Myocardial infarct finding no longer present Electronically Signed On 06-20-18 07:45:38 CDT by Porfirio Awad
[2018-06-20 08:30] VITALS: BP 113/67; TEMP 97
[2018-06-20] MEDS: PANTOPRAZOLE 40MG TABLET PO SCH (08:48)
[2018-06-20] MEDS: DULOXETINE 30 MG CAP PO SCH (08:48)
[2018-06-20] MEDS: CYCLOBENZAPRINE 10 MG TAB PO SCH (08:49)
[2018-06-20] MEDS: GABAPENTIN 400 MG CAP PO SCH (08:49)
[2018-06-20] MEDS: CEFTRIAXONE/SWI 1gm 1 GM/10 ML SYR IVP SCH (08:51)
[2018-06-20] MEDS: AZITHROMYCIN IV 500 MG in NA CHLORIDE 0.9% 250 ML IVPB SCH (08:51)
[2018-06-20] MEDS: ENOXAPARIN 40 MG/0.4 ML SQ SCH (08:52)
[2018-06-20] MEDS ORDERED: HOME MED 1 EA UNK (Duloxetine Hcl [Cymbalta] 60 MG) PO SCH (09:00)
[2018-06-20 09:11] VITALS: O2SAT 97
--- NOTE | 2018-06-20 10:05 | P.DS ---
Admission Date: 06/19/18 Discharge Date: 06/20/18 Disposition: ROUTINE DISCHARGE Discharge Condition: GOOD Reason for Admission: Right upper lobe pneumonia - Problems (1) Right upper lobe pneumonia Current Visit: Yes Status: Acute Qualifiers: Pneumonia type: due to unspecified organism Qualified Code(s): J18.1 - Lobar pneumonia, unspecified organism Brief History of Present Illness: Patient is 53 years of age admitted with fever chills cough in right upper lobe infiltrate Hospital Course: Patient was admitted here for observation did well this morning still has some cough congestion productive sputum feeling better no fever no chest pain chest examination is clear cardiovascular muscles normal abdomen soft vital signs all stable patient will be discharged to follow up in my clinic in 2 weeks Vital Signs/Physical Exam: Temp Pulse Resp BP Pulse Ox 97.0 F 71 18 113/67 96 06/20/18 08:00 06/20/18 08:00 06/20/18 08:00 06/20/18 08:00 06/20/18 08:00 Laboratory Data at Discharge: WBC 11.6 K/uL (4.3-10.9) H 06/20/18 05:05 Hgb 10.9 g/dL (12.0-15.0) L 06/20/18 05:05 Hct 32.5 % (36.0-45.0) L 06/20/18 05:05 Plt Count 297 K/uL (152-406) 06/20/18 05:05 PT 13.7 SECONDS (9.5-12.5) H 06/18/18 21:00 INR 1.16 06/18/18 21:00 APTT 30.3 SECONDS (24.3-36.9) 06/18/18 21:00 Sodium 137 mmol/L (136-145) 06/19/18 04:31 Potassium 3.5 mmol/L (3.5-5.1) 06/20/18 09:15 BUN 16 mg/dL (7-18) 06/19/18 04:31 Creatinine 1.00 mg/dL (0.55-1.3) 06/19/18 04:31 Glucose 131 mg/dL (74-106) H 06/19/18 04:31 Phosphorus 3.2 mg/dL (2.5-4.9) 06/19/18 04:31 Magnesium 2.0 mg/dL (1.8-2.4) 06/19/18 04:31 Total Bilirubin 1.1 mg/dL (0.2-1.0) H 06/19/18 04:31 AST 19 U/L (15-37) 06/19/18 04:31 ALT 26 U/L (12-78) 06/19/18 04:31 Alkaline Phosphatase 96 U/L (45-117) 06/19/18 04:31 Triglycerides 271 mg/dL (<150) H 06/20/18 05:05 Cholesterol 135 mg/dL (<200) 06/20/18 05:05 HDL Cholesterol 35 mg/dL (40-60) L 06/20/18 05:05 Cholesterol/HDL Ratio 3.86 06/20/18 05:05 Amylase 29 U/L (25-115) 06/18/18 21:00 Lipase 123 U/L (73-393) 06/18/18 21:00 Home Medications: Cyclobenzaprine [Flexeril] 5 mg PO BID 09/16/17 Duloxetine HCl [Cymbalta] 60 mg PO DAILY 09/16/17 Gabapentin [Neurontin] 400 mg PO TID 09/16/17 Hydrocodone Bit/Acetaminophen [Hydrocodon-Acetaminophn 10-325] 1 each PO Q6HP PRN 09/16/17 Pantoprazole [Protonix Tab] 40 mg PO DAILY 09/16/17 Fluticasone/Vilanterol [Breo Ellipta 100-25 Mcg INH] 1 each IH DAILY AFTER SUPPER 05/06/18 Metoprolol Succinate [Toprol Xl] 50 mg PO DAILY AFTER SUPPER 05/06/18 Valsartan/Hydrochlorothiazide [Valsartan-Hctz 160-25 mg Tab] 1 each PO DAILY AFTER SUPPER 05/06/18 Fluticasone Furoate [Arnuity Ellipta] 100 mcg IH BEDTIME 06/19/18 Ibuprofen [Ibu] 1 tab PO Q6HP PRN 06/19/18 Metformin ER [Glucophage ER] 500 mg PO DAILY 06/19/18 Rosuvastatin [Crestor*] 20 mg PO BEDTIME 06/19/18
[2018-06-20] MEDS ORDERED: POTASSIUM 25 MEQ EFFERV TAB PO ONE (11:00)
[2018-06-20] MEDS ORDERED: METFORMIN ER 500 MG TAB PO SCH (12:00)
== END 2018-06-20 12:50 | disposition home or self-care (01) ==
LOC: ER 19:38 → ERHOLD 06-19 00:08 → 4TH 06-19 00:59
PROVIDERS: ADMIT Hospitalist; ATTEND Hospitalist
DX: J18.9 Pneumonia, unspecified organism (principal); J45.901 Unspecified asthma with (acute) exacerbation; E11.9 Type 2 diabetes mellitus without complications; I10 Essential (primary) hypertension; I35.9 Nonrheumatic aortic valve disorder, unspecified
CPT/HCPCS: 36415; 51702; 71046; 71275; 80048; 80053; 80061; 80076; 81003; 81015; 82150; 82550; 82553; 82962; 83605; 83690; 83735; 84100; 84132; 84145; 84484; 85025; 85610; 85652; 85730; 86140; 87040; 93005; 94640; 94760; 96365; 96366; 96375; 99285; G0378; J0456; J0696; J1650; J2930; J3010; J7030; Q9967

== ENCOUNTER 2018-06-23 15:32 | Inpatient (IN) | payer OTHER ==
--- OUTSIDE RECORDS SUMMARY | 2018-06-23 15:34 | XMS REPORT | Clinical Summary ---
:1965 Author Organization [facility] Address [address] [place] [address] Care Team Providers Name Role Phone Selvin [...] Overview: Added automatically from request for surgery [id number] Encounters Date Type Specialty Care Team Description [...] Cv selective coronary Cardiology MD Lex angiography [[id number] (CPT)] 10/05/2017 Office Visit Cardiology Ángela Manzo Angina pectoris (Primary Dx ); MD Lex Essential hypertension; Abnormal EKG after 06/22/2017 Family History Medical History Relation Name Comments [...] INFLUENZA VACCINE 06/02/2018 Implants Implanted Type Area Boxing And Pressing Supervisor Device Identifier Expiration Date Model / Serial / Lot Medronic Procedures Procedure Name Priority Date/Time Associated Comments Diagnosis SURGICAL PATHOLOGY Routine 06/08/2018 9:41 Results for this REQUEST AM CDT procedure are in the results section. [place] AN ELECTIVE Routine 06/08/2018 8:20 ENDOTRACHEAL AIRWAY AM CDT Procedure Note - Carlos Jane CRNA - 06/08/2018 8:20 AM CDT Airway Date/Time: 06/08/2018 8:20 AM Performed by: CARLOS JANE Authorized by: NICOLE MORGAN Location: OR Urgency: Elective Difficult Airway: No Anesthesiologist: NICOLE MORGAN Resident/COMPUTER SYSTEMS MANAGER/AA: CARLOS JANE Performed by: resident/COMPUTER SYSTEMS MANAGER/AA Preoxygenated with 100% O2: Yes C-spine Precautions [...] are in SPECTRAL COLOR DOPPLER the results (86271) section. ECG 12-LEAD Routine 04/05/2018 1:20 Essential Results for this PM CDT hypertension procedure are in the results section. CV SELECTIVE CORONARY Routine 10/14/2017 9:11 Abnormal EKG Results for this ANGIOGRAPHY AM LITHOGRAPHIC PROOFER APPRENTICE procedure are in the results section. ESTIMATED GFR STAT 10/14/2017 7:15 Results for this AM LITHOGRAPHIC PROOFER APPRENTICE procedure are in the results section. HC COMPLETE BLD COUNT STAT 10/14/2017 7:15 Results for this W/AUTO DIFF AM LITHOGRAPHIC PROOFER APPRENTICE procedure are in the results section. BASIC METABOLIC PANEL STAT 10/14/2017 7:15 Results for this AM LITHOGRAPHIC PROOFER APPRENTICE procedure are in the results section. ECG PRE/POST OP Routine 10/14/2017 7:13 Results for this AM LITHOGRAPHIC PROOFER APPRENTICE procedure are in the results section. after 06/22/2017 Results Surgical pathology request (06/08/2018 9:41 AM) [facility] DEPARTMENT OF PATHOLOGY AND GENOMIC MEDICINE Surgical pathology report See link below for PDF [facility] DEPARTMENT OF Lab Report PATHOLOGY AND GENOMIC MEDICINE Result status This is Final Report to [facility] DEPARTMENT OF [id number] PATHOLOGY AND GENOMIC MEDICINE Performing Organization Address City/State/[facility] Service Unitcode Phone Number [facility] DEPARTMENT OF PATHOLOGY [address] [place] [address] AND GENOMIC MEDICINE POC glucose (06/08/2018 6:41 AM) POC glucose 174 (H) 65 - 99 mg/dL [facility] DEPARTMENT OF PATHOLOGY AND Comment: GENOMIC MEDICINE Meter ID: [id number] Flight Operations Coordinator: Zelalem Ledesma Performing Organization Address City/[facility] Unitcode Phone Number [facility] DEPARTMENT OF PATHOLOGY [address] [facility] [place] [address] AND Re-APP MEDICINE XR Chest 2 Vw (06/04/2018 1:00 [...] is present over the lower thoracic spine. [id number] Procedure Note Interface, Radiology Results Incoming - [...] is present over the lower thoracic spine. [facility]-[id number] Performing Organization Address City/[facility]/Zipcode Phone Number [facility] [address] [place] [address] Urinalysis screen and microscopy, with reflex to culture (06/04/2018 12:20 PM) Specimen site Clean catch [facility] DEPARTMENT OF PATHOLOGY AND GENOMIC MEDICINE Color, UA Yellow [facility] DEPARTMENT OF PATHOLOGY AND GENOMIC MEDICINE Appearance, UA Clear [facility] DEPARTMENT OF PATHOLOGY AND GENOMIC MEDICINE Specific gravity, UA 1.021 1.001 - 1.030 [facility] DEPARTMENT OF PATHOLOGY AND GENOMIC MEDICINE pH, UA 6.0 5.0 - 9.0 [facility] DEPARTMENT OF PATHOLOGY AND GENOMIC MEDICINE Protein, UA Negative Negative [facility] DEPARTMENT OF PATHOLOGY AND GENOMIC MEDICINE Glucose, UA 1+ (A) Negative [facility] DEPARTMENT OF PATHOLOGY AND GENOMIC MEDICINE Ketones, UA Negative Negative [facility] DEPARTMENT OF PATHOLOGY AND GENOMIC MEDICINE Bilirubin, UA Negative Negative [facility] DEPARTMENT OF PATHOLOGY AND GENOMIC MEDICINE Blood, UA Small (A) Negative [facility] DEPARTMENT OF PATHOLOGY AND GENOMIC MEDICINE Nitrite, UA Negative Negative [facility] DEPARTMENT OF PATHOLOGY AND GENOMIC MEDICINE Urobilinogen, UA <2.0 <2.0 E.U./dL [facility] DEPARTMENT OF PATHOLOGY AND GENOMIC MEDICINE Leukocyte esterase, UA Negative Negative [facility] DEPARTMENT OF PATHOLOGY AND GENOMIC MEDICINE Epithelial cells, UA <1 /HPF [facility] DEPARTMENT OF PATHOLOGY AND GENOMIC MEDICINE WBC, UA <1 0 - 4 /HPF [facility] DEPARTMENT OF PATHOLOGY AND GENOMIC MEDICINE RBC, UA 2 0 - 5 /HPF [facility] DEPARTMENT OF PATHOLOGY AND GENOMIC MEDICINE Bacteria, UA None seen None seen [facility] DEPARTMENT OF PATHOLOGY AND GENOMIC MEDICINE Yeast, UA None seen [facility] DEPARTMENT OF PATHOLOGY AND GENOMIC MEDICINE Yeast with pseudohyphae, UA None seen [facility] DEPARTMENT OF PATHOLOGY AND GENOMIC MEDICINE Specimen Urine Performing Organization Address City/State/Zipcode Phone Number [facility] DEPARTMENT OF PATHOLOGY [address] [place] [address] AND [facility] Estimated GFR (06/04/2018 12:20 PM)Only the most recent of2 resultswithin the time period is included. GFR Non Af Amer 58 (A) mL/min/1.73 m2 [facility] DEPARTMENT OF PATHOLOGY AND GENOMIC MEDICINE GFR Af Amer 70 mL/min/1.73 m2 [facility] DEPARTMENT OF Comment: PATHOLOGY AND GENOMIC [...] Plasma specimen Performing Organization Address City/[facility] Phone Number [facility] DEPARTMENT OF PATHOLOGY [address] [place] [address]. [place] [address] AND [facility] Partial thromboplastin time, activated (06/04/2018 12:20 PM) PTT 24.9 23.0 - 36.0 sec [facility] DEPARTMENT OF Comment: PATHOLOGY AND [facility] PTT therapeutic range for unfractionated heparin is MEDICINE 61.0-112.0 seconds which corresponds to Anti-Xa 0.3-0.7 U/ml. Specimen Blood Performing Organization Address [facility] Unitcode Phone Number [facility] PATHOLOGY [address] [place] [address] AND [facility] Prothrombin time with INR (06/04/2018 12:20 PM) Prothrombin time 13.5 12.0 - 15.0 sec [facility] DEPARTMENT OF PATHOLOGY AND Re-APP MEDICINE INR 1.0 [facility] DEPARTMENT OF Comment: PATHOLOGY AND Re-APP The International Normalized Ratio (INR) is a therapeutic MEDICINE monitoring tool for patients who are stable on oral anticoagulant therapy. An INR of 2.0-3.0 is suggested for deep vein thrombosis/pulmonary embolism. Specimen Blood Performing Organization Address [facility] Unitcoks Phone Number [facility] DEPARTMENT OF PATHOLOGY [address] [place] [address]. [address] CBC with platelet and differential (06/04/2018 12:20 PM)Only the most recent of2 resultswithin the time period is included. WBC 9.7 4.5 - 11.0 k/uL [facility] DEPARTMENT OF PATHOLOGY AND GENOMIC MEDICINE RBC 5.06 4.20 - 5.50 m/uL [facility] DEPARTMENT OF PATHOLOGY AND GENOMIC MEDICINE HGB 13.4 12.0 - 16.0 g/dL [facility] DEPARTMENT OF PATHOLOGY AND GENOMIC MEDICINE HCT 41.6 37.0 - 47.0 % [facility] DEPARTMENT OF PATHOLOGY AND GENOMIC MEDICINE MCV 82.2 82.0 - 100.0 fL [facility] DEPARTMENT OF PATHOLOGY AND GENOMIC MEDICINE MCH 26.5 (L) 27.0 - 34.0 pg [facility] DEPARTMENT OF PATHOLOGY AND GENOMIC MEDICINE MCHC 32.2 31.0 - 37.0 g/dL [facility] DEPARTMENT OF PATHOLOGY AND GENOMIC MEDICINE RDW - SD 42.7 37.0 - 55.0 fL [facility] DEPARTMENT OF PATHOLOGY AND GENOMIC MEDICINE MPV 9.1 6.9 - 11.0 fL [facility] DEPARTMENT OF PATHOLOGY AND GENOMIC MEDICINE Platelet count 316 150 - 400 K/uL [facility] DEPARTMENT OF PATHOLOGY AND GENOMIC MEDICINE Nucleated RBC 0.00 /100 WBC [facility] DEPARTMENT OF PATHOLOGY AND GENOMIC MEDICINE Neutrophils 60.3 39.0 - 69.0 % [facility] DEPARTMENT OF PATHOLOGY AND GENOMIC MEDICINE Lymphocytes 27.6 25.0 - 45.0 % [facility] DEPARTMENT OF PATHOLOGY AND GENOMIC MEDICINE Monocytes 6.7 0.0 - 10.0 % [facility] DEPARTMENT OF PATHOLOGY AND GENOMIC MEDICINE Eosinophils 3.8 0.0 - 5.0 % [facility] DEPARTMENT OF PATHOLOGY AND GENOMIC MEDICINE Basophils 0.6 0.0 - 1.0 % [facility] DEPARTMENT OF PATHOLOGY AND GENOMIC MEDICINE Immature granulocytes 1.0 0.0 - 1.0 % [facility] DEPARTMENT OF PATHOLOGY AND GENOMIC MEDICINE Specimen Blood Performing Organization Address City/[facility] Phone Number [facility] DEPARTMENT OF PATHOLOGY [address] [place] [address] AND Re-APP MEDICINE Type and screen (06/04/2018 12:20 PM) ABO grouping A [facility] DEPARTMENT OF PATHOLOGY AND GENOMIC MEDICINE Rh type POS [facility] DEPARTMENT OF PATHOLOGY AND GENOMIC MEDICINE Antibody screen (gel) NEG [facility] DEPARTMENT OF PATHOLOGY AND GENOMIC MEDICINE Specimen Blood Performing Organization Address [facility] Phone Number [facility] DEPARTMENT OF PATHOLOGY [address] [place] [address] AND [facility] Urine culture (06/04/2018 12:20 PM) Urine culture SEE COMMENTComment: Bacteriuria [facility] DEPARTMENT OF PATHOLOGY screen negative. AND GENOMIC MEDICINE Performing Organization Address City/[facility]/Zipcode Phone Number [facility] DEPARTMENT OF PATHOLOGY [address] [place] [address] AND [facility] Comprehensive metabolic panel (06/04/2018 12:20 PM) Sodium 139 135 - 148 mEq/L [facility] DEPARTMENT OF PATHOLOGY AND GENOMIC MEDICINE Potassium 4.3 3.5 - 5.0 mEq/L [facility] DEPARTMENT OF PATHOLOGY AND GENOMIC MEDICINE Chloride 98 98 - 112 mEq/L [facility] DEPARTMENT OF PATHOLOGY AND GENOMIC MEDICINE CO2 29 24 - 31 mEq/L [facility] DEPARTMENT OF PATHOLOGY AND GENOMIC MEDICINE Anion gap 12@ANIO 7 - 15 mEq/L [facility] DEPARTMENT OF PATHOLOGY AND GENOMIC MEDICINE BUN 19 6 - 20 mg/dL [facility] DEPARTMENT OF PATHOLOGY AND GENOMIC MEDICINE Creatinine 1.0 (H) 0.5 - 0.9 mg/dL [facility] DEPARTMENT OF PATHOLOGY AND GENOMIC MEDICINE Glucose 137 (H) 65 - 99 mg/dL [facility] DEPARTMENT OF PATHOLOGY AND GENOMIC MEDICINE Calcium 9.9 8.3 - 10.2 mg/dL [facility] DEPARTMENT OF PATHOLOGY AND GENOMIC MEDICINE Protein 8.0 6.3 - 8.3 g/dL [facility] DEPARTMENT OF PATHOLOGY AND GENOMIC MEDICINE Albumin 4.3 3.5 - 5.0 g/dL [facility] DEPARTMENT OF PATHOLOGY AND GENOMIC MEDICINE A/G ratio 1.2 0.7 - 3.8 [facility] DEPARTMENT OF PATHOLOGY AND GENOMIC MEDICINE Alkaline phosphatase 114 (H) 35 - 104 U/L [facility] DEPARTMENT OF PATHOLOGY AND GENOMIC MEDICINE AST 26 10 - 35 U/L [facility] DEPARTMENT OF PATHOLOGY AND GENOMIC MEDICINE ALT 32 5 - 50 U/L [facility] DEPARTMENT OF PATHOLOGY AND GENOMIC MEDICINE Total bilirubin 0.9 0.2 - 1.2 mg/dL [facility] DEPARTMENT OF PATHOLOGY AND GENOMIC MEDICINE Specimen Plasma specimen Performing Organization Address City/State/Zipcode Phone Number [facility] DEPARTMENT OF PATHOLOGY [address] [place] [address] AND Re-APP [facility] Cv stress test (04/29/2018 3:42 PM) Resting HR 67 [facility] Resting BP 137 [facility] Peak MET Achieved 1.0 [facility] Protocol Name Merari [facility] Time in Exercise Phase 00:00:12 H [facility]USE Max Systolic BP 144 [facility] Max Diastolic BP 80 [facility] Max Heart Rate 92 [facility] Max Predicted Heart Rate 165 [facility] Target HR Formula (220 - Age)*85% H MUSE Test Indication chest pain [facility]USE Arrhy During Ex [facility] ECG Interp Before EX [facility] ECG Interp During Ex [facility] MUSE Ex Summary Comment [facility] Overall HR Response to H MUSE Exercise Overall BP Response To H MUSE Exercise Reason for Termination Regadenoson protocol/Shortness [facility] of breath Stress Test Impression Waveform interpreted in report [facility] associated with image study. No interpretation is provided as part of this Stress ECG report.--Electronically Signed By Lucrecia MEJIA, Tristan Lee ([id number]), photography editor Sharlene Patel ([id number]) on 05/03/2018 3:12:04 PM Performing Organization Address City/State/Zipcode Phone Number [facility] [address] [place] [address] Or myocardial perfusion (04/29/2018 3:42 PM) Narrative Performed At [facility] [address] [facility], [address] [place] [address] Fax: Myocardial Perfusion Imaging Report Pat.Name:Moshe CLEARY.ID:[id number] .Date: 04/29/2018 Refer.MD:ÁNGELA MANZO MD Exam Time: 10:15:00 AM Study Type:Myocardial Perfusion Imaging Height:69inWeight: 262lb BSA: 2.32 m2 DOBAge:1965,53Y Sex: FEMALE Nuclear Tech:LARISSA Brand, [facility] Nuclear Event ID:[id number] Order ID:[id number] Reason for Study:Abnormal EKG*, Chest pain, unspecified*, Aortic valve disorders Procedures:Stress only Race: Clinical Symptoms:Regadenoson SUMMARY: BASELINE ECGNormal Sinus Rhythm, LVH by voltage STRESS TEST RESULTS Maximal Predicted HR165 beats/minute 85% Maximal Predicted HR 140 beats/minute Stress Test Duration1 minutes 00 seconds Resting Heart Rate67 beats/minute Maximal Heart Rate92 beats/minute Resting Blood Aeohvamz650/78 mmHg Maximal Blood Obzipxkh997/80 mmHg % Maximal Heart Rate Achieved 55% [...] 04/29/2018 6:17 PM CDT [facility] [address] [place] [address], [address] [place] [address] Myocardial Perfusion Imaging Report Pat.Name: VARSHA CLEARY Pat.ID: [id number] .Date: 04/29/2018 Refer.MD: ÁNGELA MANZO MD Exam Time: 10:15:00 AM Study Type:Myocardial Perfusion Imaging Height: 69in Weight: 262lb BSA: 2.32 m2 Age: 4 1965,53Y Sex: FEMALE Nuclear Tech:LARISSA Brand, [facility](CT) Nuclear Event ID:[id number] Order ID: [id number] Reason for Study:Abnormal EKG*, Chest pain, unspecified*, [...] MD Performing Organization Address City/State/Zipcode Phone Number [facility] [address] [place] [address] Echocardiogram complete w contrast and 3D if needed (04/07/2018 9:48 AM) Narrative Performed At [facility] Echocardiography Report Pat.Name:Moshe CLEARY.ID:[id number] .Date: 04/07/2018Refer.MD:ÁNGELA MANZO MD Exam Time: 8:57:00 AMStudy Type:Routine Echo Height:69inWeight: 262lb BSA: 2.32 m2 DOBAge:1965,52Y Sex: FEMALEBP:109/63 HR:76 bpmSonogrphr: Edmund Bojorquez RDCS Pat. Stat.:OutpatientRoom:[facility] Study Status:Final Echo Event ID:[id number] Order ID:[id number] Reason for Study:Aortic Valve Disorder History / [...] PA systolic pressure. MEASUREMENTS: 2D Parasternal [place] LVOT 1.8 cmLA Ds3.8 cm LVIDd4.7 cmIndex2 cm/m Ao Rtd 2.8 cm Index1.2 cm/m LVIDs2.6 cmLV Wrje608 g(87-129) LV%fs 44.8 % LVM Index 58.2 g/m2 IVSd 0.8 cmRWT0.4 LVPWd0.9 cm LA Sng Plane LA Area 22.5 cm2(8.8-23.4) LA Vol67.7 ml Index29.2 ml/m LA LngAx 6.3 cm DOPPLER AV For Flow/JAE AV pkVel 216.3 cm/s (100-170) AV AC/ET 0.4 AV mnVel 145 cm/Elena TVI44.2 cm AV pkPG 18.7 mmHgAVpkAcRt 2622.6 cm/s2 AV Mean G 10 mmHgAV NpYe181.1 cm/s2 AV AC124 msec (83-118) AV Area1.9 cm2(3-5) AV ET305 msec LVOT For Flow LVOT Area2.5 cm2 LVOT SV 82.5 ml RJQXsxWuv561.4 cm/sHR75.8 bpm LVHEahVW04 mmHgLVOT CO6.3 l/min LVOTmnPG 5.8 mmHgLVOT CI2.7 l/m/m2 LVOT TVI32.4 cm RVOT Stroke Vol ann2.5 cmCO 5.8 l/min TVI 14.9 cmCI 2.5 l/m/m2 Tm 295 eivrGT19 bpm SV72.9 ml Signed 04/08/2018 10:32 AM Jenny Vernon M.D. Procedure Note Interface, Radiology Results In - 04/08/2018 10:33 AM CDT [facility] Echocardiography Report Pat.Name: VARSHA CLEARY.ID: [id number] St.Date: 04/07/2018 Refer.MD: ÁNGELA MANZO MD Exam Time: 8:57:00 AM Study Type:Routine Echo Height: 69in Weight: 262lb BSA: 2.32 m2 Age: 4 1965,52Y Sex: FEMALE BP: 109/63 HR: 76 bpm Sonogrphr: Edmund Bojorquez RDCS Pat. Stat.:Outpatient Room: [facility] Study Status:Final Echo Event ID:[id number] Order ID: [id number] Reason for Study:Aortic Valve Disorder History / [...] PA systolic pressure. MEASUREMENTS: 2D Parasternal [place] LVOT 1.8 cm LA Ds 3.8 cm [...] AM Jenny Vernon M.D. Performing Organization Address [facility] Service UnitGuangdong Guofang Medical Technologyks Phone Number [facility] [address] [place] [address] ECG 12 lead (04/05/2018 1:20 PM) Ventricular rate 74 [facility] Atrial rate 74 [facility] [place] interval 162 [facility] QRSD interval 116 [facility] QT interval 414 [facility] QTC interval 459 [facility] P axis 1 52 [facility] QRS axis 1 -34 [facility] T wave axis 43 [facility] EKG impression Normal sinus rhythm-Left axis deviation Left [facility] anterior fascicular block-Left ventricular hypertrophy with QRS widening- Performing Organization Address [facility] Phone Number [facility] [address] [place] [address] Cv shift lab technician procedure (10/14/2017 9:11 AM) Narrative Performed At No coronary atherosclerosis; LAD and circumflex come off of separate CUPID ostia from the left sinus of valsalva Performing Organization Address [facility] Phone Number [facility] [id number] [place] [address] Basic metabolic panel (10/14/2017 7:15 AM) Sodium 139 135 - 148 mEq/L [facility] DEPARTMENT OF PATHOLOGY AND GENOMIC MEDICINE Potassium 4.0 3.5 - 5.0 mEq/L [facility] DEPARTMENT OF PATHOLOGY AND GENOMIC MEDICINE Chloride 101 98 - 112 mEq/L [facility] DEPARTMENT OF PATHOLOGY AND GENOMIC MEDICINE CO2 23 (L) 24 - 31 mEq/L [facility] DEPARTMENT OF PATHOLOGY AND GENOMIC MEDICINE Anion gap 15 7 - 15 mEq/L [facility] DEPARTMENT OF PATHOLOGY Comment: [facility] Starting from January , anion gap calculation no longer incorporates potassium. Please note the change. BUN 20 6 - 20 mg/dL [facility] DEPARTMENT OF PATHOLOGY AND GENOMIC MEDICINE Creatinine 1.0 (H) 0.5 - 0.9 mg/dL [facility] DEPARTMENT OF PATHOLOGY AND GENOMIC MEDICINE Glucose 128 (H) 65 - 99 mg/dL [facility] DEPARTMENT OF PATHOLOGY AND GENOMIC MEDICINE Calcium 9.0 8.3 - 10.2 mg/dL [facility] DEPARTMENT OF PATHOLOGY AND GENOMIC MEDICINE Specimen Plasma specimen Performing Organization Address [facility] Phone Number [facility] [address] [place] [address] [facility] ECG Pre/Post Op (10/14/2017 7:13 AM) Ventricular rate 84 [facility] Atrial rate 84 [facility] [place] interval 150 [facility] QRSD interval 106 [facility] QT interval 384 [facility] QTC interval 453 [facility] P axis 1 25 [facility] QRS axis 1 -43 [facility] T wave axis 59 [facility] EKG impression Normal sinus rhythm-Left axis deviation Left anterior fascicular block-Moderate voltage criteria for LVH, may be normal variant- Abnormal ECG-In automated comparison with ECG of 05-OCT-2017 13:30,-Minimal criteria for Septal infarct are no longer [facility] present- :37 PM Performing Organization Address City/[facility] Unitcode Phone Number [facility] [employer] [address] [place] [address] after 06/22/2017 Insurance Payer Benefit Plan / Group Subscriber ID Type Phone Address AETNA AETNA HMO,POS,EPO, MC/EC xxxxxxxxxx HMO [phone] [place] [address]
--- OUTSIDE RECORDS SUMMARY | 2018-06-23 15:34 | XMS REPORT | Continuity of Care Document ---
:1965 Author Organization Interface Problems Problem Status Onset Classification Date Comments Source Date Reported Aortic regurgitation Active Problem 03/31/2018 [facility] Asthma Active Problem 03/31/2018 [facility] CRPS (<span Active Problem 03/31/2018 [facility] ID="[id number]">[facility] nfirmed</span>) Tremor, essential Active Problem 03/31/2018 [facility] Heart murmur Active Problem 03/31/2018 [facility] Hyperlipidemia Active Problem 03/31/2018 [facility] Hypertension Active Problem 03/31/2018 [facility] Laryngopharyngeal Active Problem 03/31/2018 [facility] Morbid obesity Active Problem 03/31/2018 [facility] PVC (<span Active Problem 03/31/2018 [facility] ID="[id number]">[facility] nfirmed</span>) Medications Medication Details Route Status [...] Neuro Bitartrate 10 MG Refill(s) Oral Tablet [[place] 10/325] gabapentin 400 MG 400 mg=1 Active [...] cm 12/23/2017 [facility] Weight 113.636 12/23/2017 [facility] BMI Calculated 37 12/23/2017 [facility] Systolic (mm Hg) 107 12/23/2017 [facility] Diastolic (mm Hg) 72 12/23/2017 [facility] Heart Rate 92 12/23/2017 [facility] Systolic (mm Hg) 132 12/02/2017 [facility] Diastolic (mm Hg) 85 12/02/2017 [facility] Neuro Heart Rate 83 12/02/2017 [facility] Neuro BMI Calculated 37 12/02/2017 [facility] Neuro Weight 113.636 12/02/2017 [facility] Height 175.26 cm 12/02/2017 [facility] Neuro Encounters Location Location Encounter Encounter Reason Attending ADM DC Status Source Details Type Number For Provider Date Date Visit [facility] Phone [id number] 11/10 11/12 [facility] Message Neuro [facility] Phone [id number] 11/16 11/18 [facility] Message Neuro [facility] Outpatient [id number] [facility] 12/02 Active [facility] Vinay Outpatient [id number] MARVIN 12/02 [facility] Vinay [facility] Outpatient [id number] Kartik 12/02 12/03 [facility] Outpatient [id number] [facility] 12/10 [facility] Vinay Outpatient [id number] [facility] 12/10 [facility] [place] [facility] Ambulatory [id number] Kartik 12/10 12/10 [facility] Pre-Reg tx Neuro [facility] Outpatient [id number] Kartik 12/10 12/11 [facility] Sp[facility] Phone [id number] 12/14 12/16 [facility] Message Neuro [facility] Outpatient [id number] [facility] 12/23 [facility] [place] [facility] Outpatient [id number] Kartik 12/23 12/24 [facility] Procedures Procedure Code Date Perfomer Comments Source NJX INTERLAMINAR 12/10/2017 [facility] CRV/THR Neuro Appendectomy [id number] [facility] section [id number] [facility] Repair of [id number] ankle surgery [facility] ankle<sup>1</sup> 2003 Neuro Repair of knee [id number] knee surgery [facility] joint<sup>2</sup> 2008 Neuro Repair of [id number] 3 shoulder [facility] shoulder<sup>3</blunt surgeries 1997 Neuro p> SCS - Spinal cord [id number] spinal cord [facility] stimulation<sup>4< stimulator Neuro /sup> implant 2009,2011,2016
[2018-06-23] MEDS ORDERED: NA CHLORIDE 0.9% 3,000 ML ONE (15:57)
[2018-06-23] MEDS ORDERED: VANCOMYCIN 1 GM/250 ML BAG ONE (16:12)
[2018-06-23] MEDS ORDERED: CEFEPIME 1 GM/100 ML BAG IV ONE (16:12)
[2018-06-23 16:22] LABS: Urine Blood 1+ (NEG); Urine Glucose NEGATIVE (NEG); Urine Protein 1+ (NEG); Urine Specific Gravity >1.030 (1.005-1.030); Urine pH 5.5 (5.0-7.0)
[2018-06-23 16:29] LABS: Protime INR 1.46
[2018-06-23 16:35] LABS: Urine Bacteria <20 /HPF (<20); Urine Culture Reflex Order NOT NEEDED; Urine RBC <5 /HPF (NONE SEEN)
[2018-06-23 16:55] LABS: ALT/SGPT 43 U/L (12-78); AST/SGOT 37 U/L (15-37); Albumin 3.6 g/dL (3.4-5.0); Alkaline Phosphatase 101 U/L (45-117); BUN Blood Urea Nitrogen 19 mg/dL (7-18); Bicarbonate 27 mmol/L (21-32); Bilirubin Direct 0.2 mg/dL (0-0.2); Bilirubin Total 0.9 mg/dL (0.2-1.0); CKMB Creatine Kinase MB < 1.0 ng/mL (0.3-3.6); Creatine Phosphokinase 148 U/L (26-192); Glucose Level 123 mg/dL (74-106); Potassium 3.2 mmol/L (3.5-5.1); Protein, Total 9.2 g/dL (6.4-8.2); Sodium Level 137 mmol/L (136-145)
[2018-06-23 17:01] LABS: Absolute Neutrophil 6.1 K/uL (1.8-8.0); Eosinophils % 9.6 % (0-4.4); Hematocrit 40.6 % (36.0-45.0); Lymphocytes % 26.8 % (15.3-44.8); MCH 26.5 pg (27.0-35.0); MCV 79.8 fL (80-100); MPV 7.6 fL (7.6-11.3); Monocytes % 8.6 % (3.3-12.3); RBC Red Blood Cell Count 5.09 M/uL (3.86-4.86)
--- NOTE | 2018-06-23 17:03 | P.HP ---
Certification for Inpatient Patient admitted to: Inpatient With expected LOS: >2 Midnights Patient will require the following post-hospital care: None Practitioner: I am a practitioner with admitting privileges, knowledge of patient current condition, hospital course, and medical plan of care. Services: Services provided to patient in accordance with Admission requirements found in Title 42 Section 412.3 of the Code of Federal Regulations Patient History Date of Service: 06/23/18 Primary Care Provider: Dr Monson Reason for admission: Recurrent PNA History of Present Illness: A 53-year-old female with significant past medical history of hypertension, diabetes, asthma, and recurrent pneumonia as a child who presented to the ED complaining of having some fever coughing and chills at the house. Patient was admitted to the hospital 2 days ago for the similar complaints and was given IV antibiotics and was switched over to oral antibiotics and then discharged home upon resolution of her symptoms. Patient stated that however last night she started having some fever of 101 and 103 and thus decided to come to the ER today to get a further checked out. Patient went to her primary care doctor this morning who repeated chest x-ray which was showing progression of her pneumonia and who recommended her to come to the ER to get admitted to the hospital for IV antibiotics. Patient denies having any shortness of breath chest pain headaches nausea vomiting at this time. Positive for fever chills coughing. Cough is dry patient is not have any sputum production at this time. Patient states she has history of pneumonia in the past as a child where she would get recurrent pneumonia due to her asthma. Allergies No Known Allergies Allergy (Verified 09/16/17 08:50) Home Medications: Cyclobenzaprine [Flexeril*] 5 mg PO BID 09/16/17 Duloxetine HCl [Cymbalta] 60 mg PO DAILY 09/16/17 Gabapentin [Neurontin*] 400 mg PO TID 09/16/17 Hydrocodone Bit/Acetaminophen [Hydrocodon-Acetaminophn 10-325] 1 each PO Q6HP PRN 09/16/17 Pantoprazole [Protonix Tab*] 40 mg PO DAILY 09/16/17 Fluticasone/Vilanterol [Breo Ellipta 100-25 Mcg INH] 1 each IH DAILY AFTER SUPPER 05/06/18 Metoprolol Succinate [Toprol Xl*] 50 mg PO DAILY AFTER SUPPER 05/06/18 Valsartan/Hydrochlorothiazide [Valsartan-Hctz 160-25 mg Tab] 1 each PO DAILY AFTER SUPPER 05/06/18 Fluticasone Furoate [Arnuity Ellipta] 100 mcg IH BEDTIME 06/19/18 Ibuprofen [Ibu] 1 tab PO Q6HP PRN 06/19/18 Metformin ER [Glucophage ER*] 500 mg PO DAILY 06/19/18 Rosuvastatin [Crestor*] 20 mg PO BEDTIME 06/19/18 Levofloxacin [Levaquin] 500 mg PO DAILY #7 tablet 06/20/18 - Past Medical/Surgical History Diabetic: Yes -: HTN -: NIDDM -: asthma -: aortic valve disorder -: central tremores -: LVR -: CRPS -: obstructive sleep apnea -: hypercholesterolemia -: TAHBSO -: tubal ligation -: CS x3 -: right shoulder sx x3 -: right ankle sx -: r knee sx -: appendectomy -: cardiac cath - Family History Mother -: Heart disease, Hypertension, Other (see notes) Notes: SLE - Social History Alcohol use: No CD- Drugs: No Caffeine use: No Review of Systems 10-point ROS is otherwise unremarkable Physical Examination - Physical Exam General: Alert, Oriented x3, Mild distress HEENT: Atraumatic, PERRLA, Mucous membr. moist/pink, EOMI, Sclerae nonicteric Neck: Supple, 2+ carotid pulse no bruit, No LAD, Without JVD or thyroid abnormality Respiratory: Normal air movement, Expiratory wheezes, Inspiratory wheezes, Rhonchi/gurgles Cardiovascular: Regular rate/rhythm, Normal S1 S2 Gastrointestinal: Normal bowel sounds, No tenderness Musculoskeletal: No tenderness Integumentary: No rashes Neurological: Normal gait, Normal speech, Normal strength at 5/5 x4 extr, Normal tone, Normal affect Lymphatics: No axilla or inguinal lymphadenopathy - Studies Laboratory Data (last 24 hrs) 06/23/18 16:02: PT 17.3 H, INR 1.46, APTT 34.2 06/23/18 16:02: Sodium 137, Potassium 3.2 L, BUN 19 H, Creatinine 1.50 H, Glucose 123 H, Total Bilirubin 0.9, AST 37, ALT 43, Alkaline Phosphatase 101 Assessment and Plan - Problems (Diagnosis) (1) Sepsis Current Visit: Yes Status: Acute Plan: Possible Sepsis With elevated LA -Lab work pending. Most likely 2.2 to PNA -Hemodynamically Stable -Blood and sputum culture collected -Iv vanc and zosyn for now -Procal Pending as well -CT chest pending Qualifiers: Sepsis type: sepsis due to unspecified organism Qualified Code(s): A41.9 - Sepsis, unspecified organism (2) Recurrent pneumonia Current Visit: Yes Status: Acute Plan: Recurrent PNA with Sepsis. Failed Outpt with Levaquin and Azithromycin. -Lab work pending at this time. -Lactic acid elevated however -IV vanc and zosyn -Pulmonology consulted. Awaiting Reccs (3) Asthma exacerbation Onset Date: 06/21/18 Current Visit: No Status: Acute Plan: Acute asthma Exacerbation 2.2 to PNA -IV abx -Duonebs, Steroids and Oxygen therapy if needed -Pulmonology consulted. Qualifiers: Asthma severity: moderate Asthma persistence: persistent Qualified Code(s ): J45.41 - Moderate persistent asthma with (acute) exacerbation (4) DM2 (diabetes mellitus, type 2) Onset Date: 06/21/18 Current Visit: No Status: Chronic Qualifiers: Diabetes mellitus senior living insulin use: without long term care administrator use Diabetes mellitus complication status: without complication Qualified Code(s): E11.9 - Type 2 diabetes mellitus without complications (5) HTN (hypertension) Onset Date: 06/21/18 Current Visit: No Status: Chronic Qualifiers: Hypertension type: essential hypertension Qualified Code(s): I10 - Essential (primary) hypertension (6) Aortic valve disease Onset Date: 06/21/18 Current Visit: No Status: Chronic Discharge Plan: Home Plan to discharge in: 48 Hours - Advance Directives Does patient have a Living Will: No Does patient have a Durable POA for Healthcare: No - Code Status/Comfort Care Code Status Assessed: Yes Critical Care: No
--- NOTE | 2018-06-23 17:42 | ER ---
Nurse's Notes [facility] Name: Varsha Rajan Age: 53 yrs Sex: Female : 1965 Arrival Date: 06/23/2018 Time: 15:34 Bed 13 Private MD: Selvin Monson T Diagnosis: Pneumonia due to other specified bacteria;Failed Outpatient Treatment Presentation: 06/23 15:39 Presenting complaint: Patient states: Sent by Dr Monson for re-admission to hospital for aj worsening pneumonia. Discharged from hospital on Thursday. Transition of care: patient was not received from another setting of care. Onset of symptoms was June 18, 2018. Risk Assessment: Do you want to hurt yourself or someone else? Patient reports no desire to harm self or others. Initial Sepsis Screen: Does the patient meet any 2 criteria? HR > 90 bpm. No. Patient's initial sepsis screen is negative. Does the patient have a suspected source of infection? No. Patient's initial sepsis screen is negative. Care prior to arrival: None. 15:39 Method Of Arrival: Ambulatory 15:39 Acuity: WILDER 3 aj Triage Assessment: 15:42 General: Appears in no apparent distress. comfortable, Behavior is calm, cooperative, aj appropriate for age. Pain: Denies pain. Neuro: Level of Consciousness is awake, alert, obeys commands, Oriented to person, place, time, situation, Appropriate for age. Respiratory: Reports shortness of breath at rest on exertion Airway is patent Respiratory effort is even, unlabored, Respiratory pattern is symmetrical, tachypnea. Derm: Skin is intact, is healthy with good turgor, Skin is pink, warm \T\ dry. normal. [employer]: 15:42 LMP N/A - Post-menopause aj Historical: - Allergies: 15:42 No Known Allergies; aj - Home Meds: 15:42 Arnuity 100 Mg one per day [Active]; breoellipta inhaler one a day [Active]; aj cyclobenzaprine 10 mg Oral tab 1 tab 2 times per day [Active]; ducoxetine 60mg Daily [Active]; gabapentin 400 mg Oral cap 1 cap 3 times per day [Active]; ibuprofen 600 mg Oral tab 1 tab every 8 hours [Active]; metformin 500 mg Oral tab 1 tab 1 time per day [Active]; metoprolol tartrate 50 mg Oral tab 1 tab once daily [Active]; Protonix 40 mg Oral TbEC 1 tab once daily [Active]; rosuvastatin 20 mg Oral tab 1 tab once daily [Active]; valsartan-hydrochlorothiazide 160-25 mg Oral tab 1 tab once daily [Active]; - PMHx: 15:42 Aortic regurg; Asthma; CRPS; Diabetes - NIDDM; High Cholesterol; Hypertension; LPR; aj Sleep Apnea; tremors; - PSHx: 15:42 Hysterectomy; ; shoulder sx; Knee surgery; ankle sx; Appendectomy; aj - Immunization history:: Adult Immunizations up to date. - Social history:: Smoking status: Patient/guardian denies using tobacco. - Ebola Screening: : Patient negative for fever greater than or equal to 101.5 degrees Fahrenheit, and additional compatible Ebola Virus Disease symptoms Patient denies exposure to infectious person Patient denies travel to an Ebola-affected area in the 21 days before illness onset No symptoms or risks identified at this time. Screenin:43 Abuse screen: Denies threats or abuse. Denies injuries from another. Nutritional mg2 screening: No deficits noted. Tuberculosis screening: No symptoms or risk factors identified. Fall Risk None identified. Assessment: 15:44 General: Appears in no apparent distress. comfortable, Behavior is calm, cooperative. mg2 Pain: Complains of pain in chest Pain does not radiate. Pain currently is 2 out of 10 on a pain scale. Quality of pain is described as aching, Pain began gradually, 2-3 days ago. Is intermittent, Alleviated by medications, rest, Aggravated by cough Also complains of. Neuro: Level of Consciousness is awake, alert, obeys commands, Oriented to person, place, time, situation. Cardiovascular: Capillary refill < 3 seconds Patient's skin is warm and dry. Respiratory: Airway is patent Respiratory effort is even, unlabored, Respiratory pattern is regular, symmetrical, Breath sounds are clear bilaterally. GI: No signs and/or symptoms were reported involving the gastrointestinal system. : No signs and/or symptoms were reported regarding the genitourinary system. EENT: Derm: Skin is intact, Skin is pink, warm \T\ dry. normal. Musculoskeletal: Circulation, motion, and sensation intact. 17:35 Reassessment: patient sent to CT scan. mg2 18:07 Reassessment: Patient appears in no apparent distress at this time. Patient and/or mg2 family updated on plan of care and expected duration. Pain level reassessed. Patient is alert, oriented x 3, equal unlabored respirations, skin warm/dry/pink. patient informed about the plan for hospitalization. she agreed. 20:24 Reassessment: Patient appears in no apparent distress at this time. Patient and/or mg2 family updated on plan of care and expected duration. Pain level reassessed. Patient is alert, oriented x 3, equal unlabored respirations, skin warm/dry/pink. Vital Signs: 15:42 BP 123 / 85; Pulse 107; Resp 21; Temp 96.6; Pulse Ox 96% on R/A; Weight 111.58 kg; aj Height 5 ft. 9 in. (175.26 cm); 16:30 BP 108 / 87; Pulse 91; Resp 18; Pulse Ox 100% on R/A; Pain 2/10; mg2 17:06 BP 97 / 64; Pulse 88; Resp 14; Pulse Ox 96% on R/A; dh3 17:30 BP 100 / 65; Pulse 89; Resp 18; Pulse Ox 100% ; mg2 18:08 BP 102 / 63; Pulse 81; Resp 17; Pulse Ox 97% ; Pain 0/10; mg2 19:20 BP 107 / 63; Pulse 85; Resp 18; Temp 98.9(O); Pulse Ox 100% on R/A; Pain 0/10; mg2 20:25 BP 110 / 64; Pulse 86; Resp 18; Temp 98.8(O); Pulse Ox 100% on R/A; Pain 0/10; mg2 15:42 Body Mass Index 36.33 (111.58 kg, 175.26 cm) aj ED Course: 15:34 Patient arrived in ED. mr 15:35 Selvin Monson MD is Private Physician. mr 15:35 [facility] Barron [facility] cp 15:35 Jorge Torre MD is Attending Physician. cp 15:40 Triage completed. aj 15:42 Arm band placed on left wrist. Patient placed in an exam room, on a stretcher. aj 15:43 Larne Delgado, PASCUAL is Primary Nurse. mg2 15:45 Patient has correct armband on for positive identification. Placed in gown. Bed in low mg2 position. Call light in reach. Side rails up X 1. Pulse ox on. NIBP on. 16:02 Initial lab(s) drawn, by ny, sent to lab. First set of blood cultures drawn by me. 3 Inserted saline lock: 20 gauge in left antecubital area, using aseptic technique. Blood collected. 16:17 Second set of blood cultures drawn by me, by venipuncture 23G to right ac. [facility] 16:25 EKG done, by lead injection mold technician. reviewed by Dougie PETERSON. [facility] 16:49 Radiology exam delayed due to lab results not completed at this time. (BUN/Creatinine). mw3 17:32 CT completed. Patient tolerated procedure well. Patient moved to CT. Patient moved back sd from CT. 17:33 CT Chest Wo Con In Process Unspecified. EDMS 17:40 Shannon Ramirez MD is Hospitalizing Provider. cp 20:25 No provider procedures requiring assistance completed. Patient admitted, IV remains in mg2 place. Administered Medications: 16:03 Drug: NS 0.9% (30 ml/kg) 30 ml/kg Route: IV; Rate: bolus; Site: left antecubital; mg2 16:18 Drug: Cefepime 1 grams Route: IVPB; Rate: 200 ml/hr; Infused Over: 30 mins; Site: left mg2 antecubital; 20:23 Follow up: Response: No adverse reaction; IV Status: Completed infusion mg2 16:59 Drug: vancoMYCIN 1 grams Route: IVPB; Infused Over: 2 hrs; Site: left antecubital; mg2 20:23 Follow up: Response: No adverse reaction; IV Status: Infusion continued upon admission mg2 20:24 Drug: Potassium Chloride 40 mEq Route: PO; mg2 20:24 Follow up: Response: No adverse reaction mg2 Outcome: 17:41 Decision to Hospitalize by Provider. cp 20:26 Admitted to Med/surg accompanied by tech, via wheelchair, room 206, with chart, Report mg2 called to PASCUAL Odell 20:26 Condition: stable 20:26 Instructed on the need for admit, Demonstrated understanding of instructions. 20:27 Patient left the ED. mg2 Signatures: Dispatcher [employer] EDMS Nevin Sprague RN RN aj Rivera, Maria mr Page, Corey, PA PA cp Basil Hyatt Deanna [facility] Lanre Delgado RN RN [facility] Rosy Arciniega 3 Stefanie Pastor mw3 Corrections: (The following items were deleted from the chart) 16:07 16:04 Inserted saline lock: 20 gauge in left antecubital area, using aseptic technique. dh3 Blood collected. by hog tender Fadumo cunningham
--- NOTE | 2018-06-23 17:42 | EDPHYS ---
Physician Documentation [facility] Name: Varsha Rajan Age: 53 yrs Sex: Female : 1965 Arrival Date: 06/23/2018 Time: 15:34 Bed 13 Private MD: Selvin Monson T ED Physician Jorge Torre HPI: 06/23 15:44 This 53 yrs old Female presents to ER via Ambulatory with complaints of cp pneumonia. 15:45 Patient referred to ED by DR Monson after having chest xray done today that showed cp worsening pneumonia. 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 INSPECTOR: 15:42 LMP N/A - Post-menopause aj Historical: - Allergies: 15:42 No Known Allergies; aj - Home Meds: 15:42 Arnuity 100 Mg one per day [Active]; breoellipta inhaler one a day [Active]; aj cyclobenzaprine 10 mg Oral tab 1 tab 2 times per day [Active]; ducoxetine 60mg Daily [Active]; gabapentin 400 mg Oral cap 1 cap 3 times per day [Active]; ibuprofen 600 mg Oral tab 1 tab every 8 hours [Active]; metformin 500 mg Oral tab 1 tab 1 time per day [Active]; metoprolol tartrate 50 mg Oral tab 1 tab once daily [Active]; Protonix 40 mg Oral TbEC 1 tab once daily [Active]; rosuvastatin 20 mg Oral tab 1 tab once daily [Active]; valsartan-hydrochlorothiazide 160-25 mg Oral tab 1 tab once daily [Active]; - PMHx: 15:42 Aortic regurg; Asthma; CRPS; Diabetes - NIDDM; High Cholesterol; Hypertension; LPR; aj Sleep Apnea; tremors; - PSHx: 15:42 Hysterectomy; ; shoulder sx; Knee surgery; ankle sx; Appendectomy; aj - Immunization history:: Adult Immunizations up to date. - Social history:: Smoking status: Patient/guardian denies using tobacco. - Ebola Screening: : Patient negative for fever greater than or equal to 101.5 degrees Fahrenheit, and additional compatible Ebola Virus Disease symptoms Patient denies exposure to infectious person Patient denies travel to an Ebola-affected area in the 21 days before illness onset No symptoms or risks identified at this time. ROS: 15:45 Constitutional: Negative for fever, poor PO intake. cp 15:45 Neck: Negative for pain with movement, pain at rest, stiffness. 15:45 Cardiovascular: Negative for chest pain, edema, palpitations. 15:45 Respiratory: Positive for cough, Negative for wheezing. 15:45 Abdomen/GI: Negative for abdominal pain, nausea, vomiting, and diarrhea. 15:45 Neuro: Negative for altered mental status, headache, loss of consciousness, syncope, near syncope. 15:45 All other systems are negative. Exam: 15:50 Constitutional: The patient appears in no acute distress, alert, awake, cp non-diaphoretic, non-toxic, well developed, well nourished. 15:50 Head/Face: Normocephalic, atraumatic. cp 15:50 Eyes: Periorbital structures: appear normal, Conjunctiva: normal, no exudate, no injection, Sclera: no appreciated abnormality, Lids and lashes: appear normal, bilaterally. 15:50 ENT: External ear(s): are unremarkable, Ear canal(s): are normal, clear, TM's: dullness, bilaterally, Nose: is normal, Mouth: Lips: moist, Oral mucosa: moist, Posterior pharynx: is normal, airway is patent, no erythema, no exudate. 15:50 Neck: ROM/movement: is normal, is supple, without pain, no range of motions limitations, no meningismus, no nuchal rigidity. 15:50 Chest/axilla: Inspection: normal, Palpation: is normal, no crepitus, no tenderness. 15:50 Cardiovascular: Rate: tachycardic, Rhythm: regular, Pulses: Pulses are 2+ in right radial artery and left radial artery. Edema: is not appreciated, JVD: is not appreciated. 15:50 Respiratory: the patient does not display signs of respiratory distress, Respirations: labored breathing, is not present, accessory muscle usage, is absent, intercostal retractions, are absent, splinting, is not noted, tachypnea, is not appreciated, Breath sounds: rhonchi, that are mild, are heard diffusely, stridor, is not appreciated. 15:50 Abdomen/GI: Inspection: abdomen appears normal, Bowel sounds: active, all quadrants, Palpation: soft, in all quadrants, mild abdominal tenderness, in the left upper quadrant, rebound tenderness, is not appreciated, voluntary guarding, is not appreciated, involuntary guarding, is not appreciated. 15:50 Back: pain, is absent, ROM is normal. 15:50 Skin: cellulitis, is not appreciated, no rash present. 15:50 Neuro: Orientation: to person, place \T\ time. Mentation: lucid, able to follow commands, Cerebellar function: is grossly normal, Motor: moves all fours, strength is normal, Sensation: no obvious gross deficits. 16:25 ECG was reviewed by the Attending Physician. Vital Signs: 15:42 BP 123 / 85; Pulse 107; Resp 21; Temp 96.6; Pulse Ox 96% on R/A; Weight 111.58 kg; aj Height 5 ft. 9 in. (175.26 cm); 16:30 BP 108 / 87; Pulse 91; Resp 18; Pulse Ox 100% on R/A; Pain 2/10; mg2 17:06 BP 97 / 64; Pulse 88; Resp 14; Pulse Ox 96% on R/A; dh3 17:30 BP 100 / 65; Pulse 89; Resp 18; Pulse Ox 100% ; mg2 18:08 BP 102 / 63; Pulse 81; Resp 17; Pulse Ox 97% ; Pain 0/10; mg2 19:20 BP 107 / 63; Pulse 85; Resp 18; Temp 98.9(O); Pulse Ox 100% on R/A; Pain 0/10; mg2 20:25 BP 110 / 64; Pulse 86; Resp 18; Temp 98.8(O); Pulse Ox 100% on R/A; Pain 0/10; mg2 15:42 Body Mass Index 36.33 (111.58 kg, 175.26 cm) aj MDM: 15:38 Patient medically screened. 17:10 Physician consultation: Shannon Ramirez MD was called at 17:08, was contacted at 17:08, regarding admission, to the telemetry unit. patient's condition, would like further tests performed, CT scan. 18:10 Data reviewed: vital signs, nurses notes, lab test result(s), EKG, radiologic studies, cp CT scan, plain films. 18:10 Test interpretation: by ED physician or midlevel provider: ECG, plain radiologic cp studies. 06/23 15:48 Order name: Urine Culture cp 06/23 15:48 Order name: Urine Microscopic Only; Complete Time: 17:11 cp 06/23 17:12 Interpretation: Normal except: SQEPI 5-10. cp 06/23 15:48 Order name: Basic Metabolic Panel; Complete Time: 17:11 cp 06/23 17:12 Interpretation: Normal except: K 3.2; GLUC 123; BUN 19; CRE 1.50; GFR 36. cp / 15:48 Order name: Blood Culture Adult (2) cp 06/23 15:48 Order name: C-Reactive Protein; Complete Time: 17:11 cp 06/23 15:48 Order name: CBC with Diff; Complete Time: 17:11 cp 06/23 17:12 Interpretation: Normal except: WBC 11.2; RBC 5.09; HGB 13.5; HCT 40.6; MCV 79.8; MCH cp 26.5; PLT 419; RDW 15.6; EOSINOPHIL % 9.6. 06/23 15:48 Order name: Ckmb; Complete Time: 17:11 cp 06/23 15:48 Order name: CPK; Complete Time: 17:11 cp 06/23 15:48 Order name: Lactate; Complete Time: 17:11 cp 06/23 17:13 Interpretation: Abnormal: LAC 3.2. cp 06/23 15:48 Order name: LFT's; Complete Time: 17:11 cp 06/23 15:48 Order name: Procalcitonin; Complete Time: 17:11 cp 06/23 17:13 Interpretation: Within normal limits: Procalcitonin < 0.05. cp 06/23 15:48 Order name: Protime (+inr); Complete Time: 17:11 cp 06/23 15:48 Order name: Ptt, Activated; Complete Time: 17:11 cp 06/23 15:48 Order name: Troponin (emerg Dept Use Only); Complete Time: 17:11 cp 06/23 15:48 Order name: Accucheck; Complete Time: 16:03 cp 06/23 15:48 Order name: Cardiac monitoring; Complete Time: 16:03 cp 06/23 15:48 Order name: IV Saline Lock - Large Bore; Complete Time: 16:03 cp 06/23 15:48 Order name: Labs collected and sent; Complete Time: 16:03 cp 06/23 15:48 Order name: O2 Per Protocol; Complete Time: 16:03 cp 06/23 15:48 Order name: O2 Sat Monitoring; Complete Time: 16:03 cp 06/23 16:02 Order name: Urine Dipstick--Ancillary (enter results); Complete Time: 17:11 ag 06/23 16:02 Order name: Urine --Ancillary (enter results); Complete Time: 17:11 ag 06/23 17:15 Order name: CT Chest Wo Con; Complete Time: 18:07 cp 06/23 17:15 Order name: Sedimentation Rate, Westergren; Complete Time: 18:07 EDMS 06/23 15:48 Order name: Urine Dipstick-Ancillary (obtain specimen); Complete Time: 16:04 cp EC:25 Rate is 89 beats/min. Rhythm is regular. IL interval is normal. QRS interval is cp prolonged at 112 msec. QT interval is normal. T waves are Inverted in lead aVL. Interpreted by me. Reviewed by me. Administered Medications: 16:03 Drug: NS 0.9% (30 ml/kg) 30 ml/kg Route: IV; Rate: bolus; Site: left antecubital; mg2 16:18 Drug: Cefepime 1 grams Route: IVPB; Rate: 200 ml/hr; Infused Over: 30 mins; Site: left mg2 antecubital; 20:23 Follow up: Response: No adverse reaction; IV Status: Completed infusion mg2 16:59 Drug: vancoMYCIN 1 grams Route: IVPB; Infused Over: 2 hrs; Site: left antecubital; mg2 20:23 Follow up: Response: No adverse reaction; IV Status: Infusion continued upon admission mg2 20:24 Drug: Potassium Chloride 40 mEq Route: PO; mg2 20:24 Follow up: Response: No adverse reaction mg2 Disposition: 20:30 Chart complete. cp Disposition: 06/23/18 17:41 Hospitalization ordered by Shannon Ramirez for Inpatient Admission. Preliminary diagnosis are Pneumonia due to other specified bacteria, Failed Outpatient Treatment. - Bed requested for Telemetry/MedSurg (Inpatient). - Status is Inpatient Admission. mg2 - Condition is Stable. - Problem is an ongoing problem. - Symptoms have improved. UTI on Admission? No Addendum: 06/27/2018 01:56 Co-signature as Attending Physician, Jorge Torre MD. r n Signatures: Dispatcher [employer] [facility] Nevin Sprague RN RN aj Nieto, Roman, MD MD rn Page, Corey, PA PA cp Thompson, Moriah mt Gardose, Lanre, RN RN mg2 Corrections: (The following items were deleted from the chart) 06/23 17:17 16:46 Thorax W/ Con+CT.RAD.BRZ ordered. EDCO EDMS 19:18 17:41 Hospitalization Ordered by Shannon Ramirez MD for Inpatient Admission. Preliminary mt diagnosis is Pneumonia due to other specified bacteria; Failed Outpatient Treatment. Bed requested for Telemetry/MedSurg (Inpatient). Status is Inpatient Admission. Condition is Stable. Problem is an ongoing problem. Symptoms have improved. UTI on Admission? No. cp 20:27 19:18 06/23/2018 17:41 Hospitalization Ordered by Shannon Ramirez MD for Inpatient mg2 Admission. Preliminary diagnosis is Pneumonia due to other specified bacteria; Failed Outpatient Treatment. Bed requested for Telemetry/MedSurg (Inpatient). Status is Inpatient Admission. Condition is Stable. Problem is an ongoing problem. Symptoms have improved. UTI on Admission? No. mt
--- NOTE | 2018-06-23 17:59 | RAD REPORT ---
EXAM DESCRIPTION: CT - Thorax Wo Con - 06/23/2018 5:33 pm CLINICAL HISTORY: sob COMPARISON: June [address] TECHNIQUE: Computed axial tomography of the chest was obtained. Contrast was not requested. All CT scans are performed using dose optimization technique as appropriate and may include automated exposure control or mA/KV adjustment according to patient size. FINDINGS: The evaluation of mediastinum, hossein and vessels is limited secondary to lack of IV contras t administration. The right upper lobe consolidation has worsened. It measures about 9 centimeters. Mild bilateral patc hy alveolar opacities have developed. Borderline mediastinal lymphadenopathy probably is reactive in nature. A pleural effusion is not present. A pericardial effusion is not noted. Fatty infiltration liver seen IMPRESSION: Worsening in a right upper lobe consolidation. Development of mild bilateral patchy alveolar opacities. This all likely represents infection. It should be followed until it is clear to help exclude a post obstructive process/underlying mass
[2018-06-23] MEDS ORDERED: POTASSIUM CL SA 10 MEQ TAB PO ONE (20:24)
[2018-06-23] MEDS ORDERED: ONDANSETRON 4 MG/2 ML VIAL IV PRN (20:57)
[2018-06-23] MEDS ORDERED: ACETAMINOPHEN 500 MG TAB PO PRN (20:57)
[2018-06-23] MEDS ORDERED: D50W 25 GM/50 ML SYRINGE IV PRN (20:57)
[2018-06-23] MEDS ORDERED: VANCOMYCIN 1.25 GM in NA CHLORIDE 0.9% 250 ML IVPB SCH (20:57)
[2018-06-23] MEDS ORDERED: GLUCAGON 1 MG/VIAL IM PRN (20:57)
[2018-06-23] MEDS: INSULIN -REGULAR HUMAN 50 UNIT/0.5 ML ML SQ SCH (21:00)
[2018-06-23 21:41] VITALS: BMI 37.3
[2018-06-23] MEDS ORDERED: VANCOMYCIN 1.75 GM in NA CHLORIDE 0.9% 500 ML IVPB ONE (22:00)
[2018-06-23] MEDS ORDERED: PIPER/TAZO/NS 3.375gm 3.375 GM/100 ML BAG ONE (22:20)
[2018-06-23] MEDS: predniSONE 10 MG TAB PO SCH (22:22)
[2018-06-23] MEDS: NA CHLORIDE 0.9% 1,000 ML IV SCH (22:22)
[2018-06-23] MEDS: PIPER/TAZO/NS 3.375gm 3.375 GM/100 ML BAG IVPB SCH ×2 (22:23→23:16)
[2018-06-24] MEDS: ALBUTEROL 2.5 MG/3 ML NEB SOL NEB PRN (02:04)
[2018-06-24] MEDS: IPRATROPIUM BROM 0.5MG/2.5ML NEB PRN (02:04)
[2018-06-24 05:27] LABS: Absolute Lymphocytes (CBC) 1.3 K/uL (0.7-4.9); Absolute Monocytes 0.3 K/uL (0.1-1.3); Absolute Neutrophil 3.8 K/uL (1.8-8.0); Basophils % 0.8 % (0-1.3); Eosinophils % 3.4 % (0-4.4); Hematocrit 31.6 % (36.0-45.0); Lymphocytes % 22.6 % (15.3-44.8); MCV 78.7 fL (80-100); MPV 7.2 fL (7.6-11.3); Monocytes % 5.7 % (3.3-12.3); RBC Red Blood Cell Count 4.01 M/uL (3.86-4.86)
[2018-06-24 05:47] LABS: Albumin 2.7 g/dL (3.4-5.0); Bilirubin Total 0.8 mg/dL (0.2-1.0); Protein, Total 6.8 g/dL (6.4-8.2)
[2018-06-24] MEDS: PIPER/TAZO/NS 3.375gm 3.375 GM/100 ML BAG IVPB SCH ×3 (06:00→17:09)
[2018-06-24] MEDS ORDERED: PIPER/TAZO/NS 3.375gm 3.375 GM/100 ML BAG ONE (06:03)
[2018-06-24] MEDS: NA CHLORIDE 0.9% 1,000 ML IV SCH ×2 (06:57→13:35)
[2018-06-24] MEDS: INSULIN -REGULAR HUMAN 50 UNIT/0.5 ML ML SQ SCH ×4 (07:30→21:00)
--- NOTE | 2018-06-24 08:48 | P.CNS ---
Date of Consult: 06/24/18 Primary Care Provider: Dr Monson Chief Complaint: Recurrent PNA History of Present Illness: pt i s 53 yrs of age recently D/C with RUL PNA. AW fever and cough. Worsening consolidation of th eRUL. Non productive cough. Chills. No chest pain. Allergies No Known Allergies Allergy (Verified 06/23/18 21:02) Home Medications: Cyclobenzaprine HCl [Flexeril] 5 mg PO BID 06/23/18 Duloxetine HCl [Cymbalta] 60 mg PO DAILY 06/23/18 Fluticasone Furoate [Arnuity Ellipta] 100 mcg IH BEDTIME 06/23/18 Fluticasone/Vilanterol [Breo Ellipta 100-25 Mcg INH] 1 inh IH DAILY AFTER SUPPER 06/23/18 Gabapentin 400 mg PO TID 06/23/18 Hydrocodone Bit/Acetaminophen [Fries 10-325 Tablet] 1 each PO Q6H PRN 06/23/18 Ibuprofen [Ibu] 600 mg PO Q6H PRN 06/23/18 Metformin ER [Glucophage ER] 500 mg PO BID 06/23/18 Metoprolol Succinate [Toprol Xl] 50 mg PO SEECOM 06/23/18 Pantoprazole [Protonix Tab] 40 mg PO DAILY 06/23/18 Rosuvastatin Calcium [Crestor] 20 mg PO BEDTIME 06/23/18 Valsartan/Hydrochlorothiazide [Valsartan-Hctz 160-25 mg Tab] 1 each PO DAILY AFTER SUPPER 06/23/18 levoFLOXacin [Levaquin] 500 mg PO DAILY 06/23/18 - Past Medical/Surgical History Diabetic: Yes -: HTN -: NIDDM -: asthma -: aortic valve disorder -: central tremores -: LVR -: CRPS -: obstructive sleep apnea -: hypercholesterolemia -: TAHBSO -: tubal ligation -: CS x3 -: right shoulder sx x3 -: right ankle sx -: r knee sx -: appendectomy -: cardiac cath - Family History Mother Medical History: Heart disease, Hypertension, Other (see notes) Notes: SLE - Social History Alcohol use: No CD- Drugs: Yes Caffeine use: Yes Place of Residence: Home Review of Systems 10-point ROS is otherwise unremarkable General: Fever, Chills Respiratory: Cough, Shortness of Breath Physical Examination Temp Pulse Resp BP Pulse Ox 97.2 F 74 18 106/56 L 95 06/24/18 08:00 06/24/18 08:00 06/24/18 08:00 06/24/18 08:00 06/24/18 08:00 General: Alert HEENT: Atraumatic Neck: Supple Respiratory: Clear to auscultation bilaterally Cardiovascular: No edema, Regular rate/rhythm Gastrointestinal: Normal bowel sounds, Soft and benign Laboratory Data (last 24 hrs) 06/23/18 16:02: PT 17.3 H, INR 1.46, APTT 34.2 06/23/18 16:02: WBC 11.2 H, Hgb 13.5 D, Hct 40.6 D, Plt Count 419 H D 06/23/18 16:02: Sodium 137, Potassium 3.2 L, BUN 19 H, Creatinine 1.50 H, Glucose 123 H, Total Bilirubin 0.9, AST 37, ALT 43, Alkaline Phosphatase 101 - Problems (1) Recurrent pneumonia Current Visit: Yes Status: Acute Plan: Pt Aw with worseniong consolidation of RUL. Was D/C honme on Levaquin. PCT neg. Mild elevated WBC. CW AB for now. await cultures. Consided higher dose of Levaquin 750 mg . Pt is not at risk for resistant organisms VS stable .Sat normal.
[2018-06-24] MEDS: ENOXAPARIN 40 MG/0.4 ML SQ SCH (09:21)
[2018-06-24] MEDS: predniSONE 10 MG TAB PO SCH ×2 (09:22→21:06)
[2018-06-24] MEDS ORDERED: HYDROCODONE/APAP 10/325 TAB PO PRN (11:11)
[2018-06-24] MEDS: VANCOMYCIN 2 GM in NA CHLORIDE 0.9% 500 ML IVPB SCH (11:43)
[2018-06-24] MEDS ORDERED: METOPROLOL XL 50 MG TAB PO PRN (12:00)
[2018-06-24] MEDS: GABAPENTIN 400 MG CAP PO SCH ×2 (13:32→21:06)
--- NOTE | 2018-06-24 16:31 | EKG ---
Test Date: 2018-06-23 Test Time: 16:19:14 Commercial Loan Officer: CAITIE MEASUREMENT RESULTS: Intervals: Rate: 89 ME: 158 QRSD: 112 QT: 380 QTc: 462 [place]: P: 54 ME: 158 QRS: -36 T: 76 INTERPRETIVE STATEMENTS: Normal sinus rhythm Left axis deviation Voltage criteria for left ventricular hypertrophy Abnormal ECG Compared to ECG 06/18/2018 21:38:15 Left-axis deviation now present Left anterior fascicular block no longer present Prolonged QT interval no longer present Electronically Signed On 06-24-18 16:28:04 CDT by Porfirio Awad
--- NOTE | 2018-06-24 16:58 | PN ---
Date of Progress Note: 06/24/2018 Subjective: The patient seen and examined. Chart reviewed and case discussed with RN and Dr. Dipak campoverde. The patient is still having some shortness of breath, worse than usual; some cough, but no sputu m production. Review of Systems: Negative except as above. Medications: Reviewed. Physical Examination: Vital Signs: Temperature 97.2, heart rate 74, blood pressure 106/56, respirations 18, O2 95% on room air. General: Awake, alert, oriented x3. Some mild distress. Obese female. BMI 37. Ill-appearing. CV: S1, S2. No murmurs. Respiratory: Diminished breath sounds at the bases, right worse than left. Gastrointestinal: Abdomen is soft, nontender, nondistended. Positive bowel sounds. No guarding or rigidity. Extremities: No clubbing, cyanosis, or edema. Neurologic: Nonfocal. Skin: No rashes. Normal skin turgor. Extremities: Capillary refill less than 2 seconds. Laboratory Data: Sodium 141, potassium 4, chloride 111, CO2 of 22, BUN 16, creatinine 1, glucose 156 . Lactate 1.1, calcium 8.1. WBC 5.7, H and H 10.8, 31.7, platelets 315. Assessment And Plan: A 53-year-old female with: 1.Sepsis, secondary to pneumonia. The patient is still hypotensive. White count has come down. We will continue with broad-spectrum IV antibiotics and follow up on blood cultures and sputum cultures . CT chest reviewed. 2.Pneumonia, right upper lobe, recurrent. Failed outpatient treatment. Likely gram-negative pneumo seferino. We will continue with broad-spectrum IV antibiotics. Appreciate Dr. Tucker's input. 3.Acute asthma exacerbation. We will continue DuoNeb, steroids, and supplemental O2 as needed. The patient has moderate persistent asthma. 4.Diabetes mellitus type 2, without long-term use of insulin, without complications. We will contin ue sliding scale insulin. Hold metformin for now. 5.Essential hypertension, currently hypotensive. We will hold blood pressure medications. 6.Aortic valve disease. 7.Protein-calorie malnutrition. Albumin is 2.7. SA/MODL Voice ID: [id number] Report ID: [id number]
[2018-06-24] MEDS: FLUTICASONE IH SCH (17:11)
[2018-06-24] MEDS: VILANTEROL IH SCH (17:11)
[2018-06-24] MEDS ORDERED: HOME MED 1 EA UNK (Valsartan/Hydrochlorothiazide [Valsartan-Hctz 160-25 Mg Tab] 1 EACH) PO SCH (17:30)
[2018-06-24] MEDS: FLUTICASONE FUROATE 100 MCG IH SCH (21:00)
[2018-06-24] MEDS ORDERED: CYCLOBENZAPRINE HCL 5 MG PO SCH (21:00)
[2018-06-24] MEDS: ROSUVASTATIN 10 MG TAB PO SCH (21:06)
[2018-06-24] MEDS ORDERED: VANCOMYCIN 2 GM in NA CHLORIDE 0.9% 500 ML IVPB SCH (22:00)
[2018-06-25] MEDS: PIPER/TAZO/NS 3.375gm 3.375 GM/100 ML BAG IVPB SCH ×3 (00:58→17:38)
[2018-06-25] MEDS: NA CHLORIDE 0.9% 1,000 ML IV SCH ×2 (02:57→12:00)
[2018-06-25] MEDS: VANCOMYCIN 2 GM in NA CHLORIDE 0.9% 500 ML IVPB SCH ×2 (04:47→22:15)
[2018-06-25 05:16] LABS: Absolute Lymphocytes (CBC) 1.5 K/uL (0.7-4.9); Absolute Monocytes 0.3 K/uL (0.1-1.3); Absolute Neutrophil 4.9 K/uL (1.8-8.0); Basophils % 0.6 % (0-1.3); Eosinophils % 1.1 % (0-4.4); Hematocrit 31.5 % (36.0-45.0); Lymphocytes % 21.7 % (15.3-44.8); MCH 27.2 pg (27.0-35.0); MCV 79.7 fL (80-100); MPV 7.2 fL (7.6-11.3); Monocytes % 4.2 % (3.3-12.3); RBC Red Blood Cell Count 3.95 M/uL (3.86-4.86)
[2018-06-25 05:22] LABS: Albumin 2.9 g/dL (3.4-5.0); Bilirubin Total 0.6 mg/dL (0.2-1.0)
[2018-06-25] MEDS: ALBUTEROL 2.5 MG/3 ML NEB SOL NEB PRN (05:29)
[2018-06-25] MEDS: INSULIN -REGULAR HUMAN 50 UNIT/0.5 ML ML SQ SCH ×4 (07:30→21:00)
[2018-06-25] MEDS: GABAPENTIN 400 MG CAP PO SCH ×3 (09:34→21:24)
[2018-06-25] MEDS: PANTOPRAZOLE 40MG TABLET PO SCH (09:35)
[2018-06-25] MEDS: predniSONE 10 MG TAB PO SCH ×2 (09:35→21:23)
[2018-06-25] MEDS: DULOXETINE 30 MG CAP PO SCH (09:35)
[2018-06-25] MEDS: ENOXAPARIN 40 MG/0.4 ML SQ SCH (09:36)
--- NOTE | 2018-06-25 13:04 | P.PN ---
Subjective Date of Service: 06/25/18 Primary Care Provider: Dr Monson Chief Complaint: Recurrent PNA Subjective: Improving (Patient is doing much better no fever chills no cough for chest pain) Review of Systems Unremarkable Physical Examination - Vital Signs Temperature: 98.1 F Blood Pressure: 136/63 Pulse: 80 Respirations: 17 Pulse Ox (%): 96 - Physical Exam General: Alert, Oriented x3 Neck: Supple Respiratory: Clear to auscultation bilaterally Cardiovascular: No edema, Regular rate/rhythm - Studies Microbiology Data (last 24 hrs): 06/23/18 15:05 Clean Catch Urine Ferguson Count - Final <10,000 CFU/ML. 06/23/18 15:05 Clean Catch Urine - Final Assessment & Plan - Problems (Diagnosis) (1) Recurrent pneumonia Onset Date: 06/24/18 Current Visit: Yes Status: Acute Plan: Patient is 53 years of age admitted with a right upper lobe pneumonia white count is declining is back to normal cultures are so far negative patient's pro calcitonin was also negative she can be discharged home on levofloxacin 750 mg p.o. daily for 7 days patient is not at risk for any resistant organisms
--- NOTE | 2018-06-25 16:01 | PN ---
Date of Progress Note: 06/25/2018 Subjective: The patient is seen and examined. Chart reviewed and case discussed with RN. The patient states she feels better, however, still getting significantly short of breath with ambulation. Had some wheezing, but improved with breathing treatments. Cough present. Review of Systems: Negative except as above. Medications: List reviewed. Physical Examination: Vital Signs: Temperature 98.1, heart rate 80, blood pressure 136/63, respirations 17, O2 saturation 96% on room air. General: Awake, alert, and oriented x3, in some mild distress, obese female, BMI 37, ill-appearing. CV: S1, S2. No murmurs. Peripheral pulses present. Respiratory: Diminished breath sounds. Some mild wheezing. No stridor or use of accessory muscles. Gastrointestinal: Abdomen is soft, nontender, nondistended. Positive bowel sounds. No guarding or rigidity. Extremities: No clubbing, cyanosis, or edema. Neurologic: Nonfocal. Laboratory Data: Sodium 143, potassium 4, chloride 110, CO2 25, BUN 13, creatinine 1, glucose 149, calcium 8.4, albumin 2.9. WBC 6.7, H and H 10.7 and 31.5, MCV 79.7, platelets 318, Blood cultures no growth to date. Sputum culture is pending. Assessment And Plan: A 53-year-old female with: 1. Sepsis, secondary to pneumonia, improving. We will continue with IV antibiotics and follow up on cultures, no growth to date. 2. Right upper lobe pneumonia, failed outpatient treatment, likely gram- negative pneumonia. We will continue with IV antibiotics. Dr. Tucker on board. 3. Acute asthma exacerbation. Continue DuoNeb, weaned off steroids. Continue supplemental oxygen and wean as tolerated. The patient had repeat allergy testing recently and does not have any allergens at this time. Usually has moderate persistent asthma. 4. Diabetes mellitus type 2, without long-term use of insulin with hyperglycemia. 5. Essential hypertension. Blood pressure now improved. We will continue to monitor. Hold blood pressure medications for now. 6. Aortic valve disease. 7. Protein-calorie malnutrition, improving. We will continue with supplements. 8. Obesity Plan: Repeat chest x-ray in a.m. Likely discharge in the next 24 to 48 hours once continues to improve. /MANAV Voice ID: [id number] Report ID: [id number] MTDD
[2018-06-25] MEDS: VILANTEROL IH SCH (17:30)
[2018-06-25] MEDS: FLUTICASONE IH SCH (17:30)
[2018-06-25] MEDS: FLUTICASONE FUROATE 100 MCG IH SCH (21:00)
[2018-06-25] MEDS: ROSUVASTATIN 10 MG TAB PO SCH (21:23)
[2018-06-26] MEDS: NA CHLORIDE 0.9% 1,000 ML IV SCH (01:20)
[2018-06-26] MEDS: PIPER/TAZO/NS 3.375gm 3.375 GM/100 ML BAG IVPB SCH ×2 (04:32→09:41)
[2018-06-26 05:06] LABS: Absolute Lymphocytes (CBC) 1.6 K/uL (0.7-4.9); Absolute Monocytes 0.4 K/uL (0.1-1.3); Absolute Neutrophil 5.5 K/uL (1.8-8.0); Basophils % 0.6 % (0-1.3); Eosinophils % 1.8 % (0-4.4); Lymphocytes % 20.5 % (15.3-44.8); MCH 26.7 pg (27.0-35.0); MCV 79.7 fL (80-100); MPV 7.2 fL (7.6-11.3); Monocytes % 4.7 % (3.3-12.3); RBC Red Blood Cell Count 4.02 M/uL (3.86-4.86)
[2018-06-26 05:18] LABS: Albumin 2.9 g/dL (3.4-5.0); Bilirubin Total 0.5 mg/dL (0.2-1.0); Potassium 4.1 mmol/L (3.5-5.1)
[2018-06-26 05:40] LABS: Blood Morphology Comment NOT SEEN (NOT SEEN); Platelet Estimate ADEQ
[2018-06-26] MEDS: INSULIN -REGULAR HUMAN 50 UNIT/0.5 ML ML SQ SCH ×2 (07:30→11:30)
[2018-06-26] MEDS: ALBUTEROL 2.5 MG/3 ML NEB SOL NEB PRN (07:34)
[2018-06-26] MEDS: IPRATROPIUM BROM 0.5MG/2.5ML NEB PRN (07:34)
[2018-06-26] MEDS: ENOXAPARIN 40 MG/0.4 ML SQ SCH (08:28)
[2018-06-26] MEDS: DULOXETINE 30 MG CAP PO SCH (08:29)
[2018-06-26] MEDS: predniSONE 10 MG TAB PO SCH (08:29)
[2018-06-26] MEDS: GABAPENTIN 400 MG CAP PO SCH (08:29)
[2018-06-26] MEDS: PANTOPRAZOLE 40MG TABLET PO SCH (08:29)
--- NOTE | 2018-06-26 08:48 | RAD REPORT ---
EXAM DESCRIPTION: Wade Pa And Lat (2 Views)06/26/2018 6:50 am CLINICAL HISTORY: Cough COMPARISON: June 23, 2018 FINDINGS: Right upper lobe consolidation is minimally improved. No change in mild additional bilate ral pulmonary opacities. The heart is normal size IMPRESSION: Minimal improvement in a right upper lobe pneumonia
[2018-06-26 09:54] VITALS: BP 136/64; TEMP 98.5
[2018-06-26 12:34] VITALS: O2SAT 96
--- NOTE | 2018-06-26 15:24 | DS ---
Date of Discharge: 06/26/2018 Discharge Diagnoses: 1.Pneumonia. 2.Asthma exacerbation. 3.Diabetes mellitus. 4.Hypertension. 5.Aortic valve disease. 6.Overweight. Consult: Dr. Tucker. Procedure: CAT scan of the chest done on the 23 of June showed worsening right upper lobe pneumo seferino, development of mild bilateral patchy alveolar opacities. Procedure none. For history of present illness, please refer to Dr. Ramirez's admission note. Hospital Course: Initially, the patient presented with fever, cough, chills after recent discharge f or pneumonia. The patient in the ER had x-ray, showed progression of her pneumonia which was confirm ed on CT scan. She was admitted and started on Zosyn and vancomycin. Blood cultures so far negative upon discharge as well as sputum culture. Dr. Tucker was consulted and he thought the patient can be discharged home on Levaquin 750 mg for 7 days. She will be discharged today in stable condition. She will continue in the meantime on her medication for diabetes, hypertension. Today her white bl ood cells are normal. She will be discharged today in stable condition. Discharge Condition: Stable. Discharge Diet: 1800 ADA. Discharge Followup: With primary care physician this week. Discharge Physical Examination: Vital signs: Blood pressure is 136/64, respiratory rate 18, pulse 9 2, temperature 98.5, saturating 98%. The patient alert oriented x3. Does not look in any distress. HEENT: Atraumatic, normocephalic. PERRLA. Oral mucosa is moist. Neck: Supple. No JVD. No carotid bruits. Chest: Clear to auscultation. Good air entry. Heart: Regular rate, normal S1, S2 normal. No gallop or murmur. Abdomen: Soft, nontender. No masses. No hepatosplenomegaly. Positive bowel sounds. Extremities: No clubbing, cyanosis, or edema. No calf tenderness. Neurologic: Grossly intact. Discharge Medications: Levaquin 750 mg once a day for 7 days, Flexeril 5 mg twice a day, Cymbalta 60 mg daily, fluticasone 100 mcg inhaler at bedtime, Breo Ellipta inhaler daily after supper, Neurontin 400 mg t.i.d., ibuprofen 600 mg as needed, metformin ER 500 mg twice a day, metoprolol 50 mg orally, Protonix 40 mg once a day, Crestor 20 mg once a day, valsartan hydrochlorothiazide 1 tablet orally a fter supper. HODAN/MANAV Voice ID: [id number] Report ID: [id number]
== END 2018-06-26 13:58 | disposition home or self-care (01) | DRG 871 ==
LOC: ER 15:32 → ERHOLD 18:33 → 2ND 20:06
PROVIDERS: ADMIT Family Medicine; ATTEND Internal Medicine
DX: A41.9 Sepsis, unspecified organism (principal); J18.9 Pneumonia, unspecified organism; E46 Unspecified protein-calorie malnutrition; J45.41 Moderate persistent asthma with (acute) exacerbation; E11.9 Type 2 diabetes mellitus without complications; I10 Essential (primary) hypertension; Z68.37 Body mass index [BMI] 37.0-37.9, adult; E66.9 Obesity, unspecified; Z79.84 Long term (current) use of oral hypoglycemic drugs; G47.33 Obstructive sleep apnea (adult) (pediatric); E78.00 Pure hypercholesterolemia, unspecified; N95.9 Unspecified menopausal and perimenopausal disorder; I35.1 Nonrheumatic aortic (valve) insufficiency
CPT/HCPCS: 36415; 71046; 71250; 80048; 80053; 80076; 80202; 81003; 81015; 81025; 82550; 82553; 82962; 83605; 84145; 84484; 85025; 85610; 85652; 85730; 86140; 87040; 87086; 87088; 93005; 94640; 96365; 96366; 96375; 99285; J0692; J1650; J2543; J3370; J7030; J7512